=== PATIENT | female | born 1945 | race Caucasian/White ===

== ENCOUNTER 2017-03-23 18:10 | Emergency (ER) | payer MEDICARE, MEDICAID, SELFPAY ==
[2017-03-23 18:11] VITALS: BP 147/82; PULSE 82; RESP 22; O2SAT 96; BMI 35.3
--- NOTE | 2017-03-23 18:16 | CT_ITS ---
CT abdomen pelvis w con CLINICAL INDICATION: Generalized abdominal pain, history of hernia ITS.REASON: hernia ORDERING PHYSICIAN: Paresh Ortiz MD PATIENT AGE: 71 years COMPARISON: 12/27/2016 TECHNIQUE: Axial images obtained with sagittal and coronal reformats. PROCEDURE: Oral Contrast: None IV Contrast: 75 mL of [id number]. FINDINGS: No acute finding lower chest. Prior cholecystectomy without ductal dilatation. 16 mm cyst in the hepatic dome. Spleen, adrenal glands, pancreas and right kidney are unremarkable. Left kidney is absent surgically.. There is a ventral abdominal wall hernia which contains a loop of transverse colon without evidence of obstruction. No local bowel wall thickening. No intestinal obstruction or free air. No evidence of appendicitis or diverticulitis. No pelvic mass abnormal fluid collection or focal inflammatory change. Mild lumbar scoliosis convex right with no acute bony findings. IMPRESSION: 1. No acute finding. 2. Stable small ventral hernia containing a loop of transverse colon 3. Prior left nephrectomy and cholecystectomy
[2017-03-23 18:30] LABS: Basophils % 0.6 % (0.1-2.0); Eosinophils # 0.5 K/mm3 (0.0-0.4); Hematocrit 34.2 % (37.0-47.0); Hemoglobin 11.1 g/dL (12.2-16.2); Lymphocytes # 2.1 K/mm3 (0.7-4.5); Lymphocytes % 30.5 K/mm3 (10-50); Mean Corpuscular HGB Conc 32.4 g/dL (31.8-35.4); Mean Corpuscular Hemoglobin 27.7 pg (27.0-31.2); Mean Corpuscular Volume 85.3 fl (81-99); Mean Platelet Volume 8.7 fl (7.4-10.4); Monocytes # 0.3 K/mm3 (0.1-1.0); Monocytes % 4.4 % (1.7-9.3); Neutrophils % 57.5 % (37.0-80.0); Platelet Count 170 K/mm3 (142-424); Red Blood Count 4.01 M/mm3 (4.20-5.40); Red Cell Distribution Width 14.4 % (11.5-17.5)
[2017-03-23 18:39] LABS: Alanine Aminotransferase 25 U/L (12-78); Albumin Level 3.1 gm/dL (3.4-5.0); Albumin/Globulin Ratio 0.7 (1.1-1.8); Alkaline Phosphatase 108 U/L (46-116); Amylase 91 U/L (25-125); Anion Gap 11.7 mEq/L (5-15); Aspartate Amino Transferase 19 U/L (15-37); Bilirubin,Total 0.2 mg/dL (0.2-1.0); Blood Urea Nitrogen 24 mg/dL (7-18); Calcium 8.9 mg/dL (8.5-10.1); Carbon Dioxide 27 mmol/L (21.0-32.0); Chloride 107 mmol/L (98-107); Creatinine Clearance Estimated 59 mL/min (0-300); Creatinine,Serum 1.12 mg/dL (0.55-1.02); Estimated Glomerular Filt Rate 48 ml/min (>60); GFR (African American) 58 ML/MIN (>60); Globulin 4.4 gm/dl (1.3-3.2); Glucose 112 mg/dL (74-106); Lipase 221 u/L (73-393); Potassium 4.7 mmoL/L (3.5-5.1); Sodium 141 mmol/L (136-145); Total Protein,Serum 7.5 gm/dL (6.4-8.2)
--- NOTE | 2017-03-23 18:49 | HMH.EDABDPAI ---
ED Disposition Clinical Impression: Ventral hernia without obstruction or gangrene, UTI (urinary tract infection) Disposition: Home, Self-Care Condition on Discharge: Good Instructions: DI for Acute Abdomen Additional Instructions: Dr Jackson will see her in the morning for a surgery referral and follow up on urine culture. Prescriptions: Sulfamethoxazole/Trimethoprim [Bactrim DS tablet] 1 each PO BID #14 tab Referrals: Provider,Salud, [Primary Care Provider] - Catracho Wong MD [Staff Physician] - - Critical Care Critical Care Time: No Attestation: On 03/23/17, the high probability of a clinically significant, sudden or life threatening deterioration of the following system(s) required my full and direct attention, intervention and personal management. The time I documented below is in addition to time spent performing reported procedures but includes the following listed in this critical care notation. Medical Decision Making - Medical Records Medical records reviewed: Yes: I reviewed the patient's medical records. Vital Signs: 03/23/17 18:11 Temperature Source Oral Pulse Rate [Right Brachial] 82 Respiratory Rate 22 Blood Pressure [Right Arm] 147/82 Blood Pressure Mean [Right Arm] 103 Blood Pressure Source [Right Arm] Automatic Cuff Blood Pressure Position [Right Arm] Sitting 02 Sat by Pulse Oximetry 96 Oxygen Delivery Method Room Air - Lab Data Lab results reviewed: Yes: I reviewed the patient's lab results. Lab Results 03/23/17 17:51: Lactic Acid 2.4 H 03/23/17 18:15: WBC 7.0, RBC 4.01 L, Hgb 11.1 L, Hct 34.2 L, MCV 85.3, MCH 27.7, MCHC 32.4, RDW 14.4, Plt Count 170, MPV 8.7, Neut % (Auto) 57.5, Lymph % (Auto) 30.5, [place] % (Auto) 4.4, Eos % (Auto) 7.0, Baso % (Auto) 0.6, Neut # (Auto) 4.0, Lymph # (Auto) 2.1, [place] # (Auto) 0.3, Eos # (Auto) 0.5 H, Baso # (Auto) 0.0 03/23/17 18:15: Sodium 141, Potassium 4.7, Chloride 107, Carbon Dioxide 27, Anion Gap 11.7, BUN 24 H, Creatinine 1.12 H, Estimated Creat Clear 59, Estimated GFR 48 L, Est GFR ( Amer) 58 L, Glucose 112 H, Calcium 8.9, Total Bilirubin 0.2, AST 19, ALT 25, Alkaline Phosphatase 108, Total Protein 7.5, Albumin 3.1 L, Globulin 4.4 H, Albumin/Globulin Ratio 0.7 L, Amylase 91, Lipase 221 03/23/17 19:19: Urine Color Yellow, Urine Appearance Sl cloudy, Urine pH 7.0, Ur Specific [place] 1.010, Urine Protein Negative, Urine Glucose (UA) Negative, Urine Ketones Negative, Urine Blood Negative, Urine Nitrate Negative, Urine Bilirubin Negative, Urine Urobilinogen 0.2, Ur Leukocyte Esterase 2+ A, Urine RBC None, Urine WBC 20-50, Ur Squamous Epith Cells 5-10, Ur Transition Epith Cell 3-5, Urine Bacteria 2+ Result diagrams: 03/23/17 18:15 03/23/17 18:15 Orders (Tests/Meds): ED MEDICATIONS Discontinued Medications Generic Name Dose Route Start Last Admin Trade Name Fenrando PRN Reason Stop Dose Admin Iopamidol 75 ml 03/23/17 19:05 03/23/17 19:06 [id number]; 75ml Vial IV 03/23/17 19:06 75 ml ONCE ONE Administration Sodium Chloride 10 ml 03/23/17 19:05 03/23/17 19:06 Rad-Saline Flush 10ml Syringe IV 03/23/17 19:06 10 ml ONCE ONE Administration ORDERS Category Date Time Status CT abdomen pelvis w con Stat Cat Scan 03/23/17 18:16 Taken Urine Culture Stat Micro 03/23/17 19:19 Received - CT Data CT Scan: Abdomen, Pelvis Time Received: 20:[address] Reviewed: Yes: I have viewed the radiologist's interpretation Preliminary Findings: Abnormal Findings Narrative: CT scan report was positive for no acute findings Stable small ventral and nonincarcerated transverse colon Mild appendix Absent left kidney Bowel obstruction. - Thomas Inquiry Pt receiving controlled substance: No Thomas was queried for this patient: No Medical Decision Making Narrative: I discussed her history, clinical examination, labs and CT report with her primary care physician Dr. Wong who presented to the ED and
--- NOTE | 2017-03-23 18:52 | ED_ITS ---
ED Disposition Clinical Impression: Ventral hernia without obstruction or gangrene, UTI (urinary tract infection) Disposition: Home, Self-Care Condition on Discharge: Good Instructions: DI for Acute Abdomen Additional Instructions: Dr Jackson will see her in the morning for a surgery referral and follow up on urine culture. Prescriptions: Sulfamethoxazole/Trimethoprim [Bactrim DS tablet] 1 each PO BID #14 tab Referrals: Provider,Salud, [Primary Care Provider] - Catracho Wong MD [Staff Physician] - - Critical Care Critical Care Time: No Attestation: On 03/23/17, the high probability of a clinically significant, sudden or life threatening deterioration of the following system(s) required my full and direct attention, intervention and personal management. The time I documented below is in addition to time spent performing reported procedures but includes the following listed in this critical care notation. Medical Decision Making - Medical Records Medical records reviewed: Yes: I reviewed the patient's medical records. Vital Signs: 03/23/17 18:11 Temperature Source Oral Pulse Rate [Right Brachial] 82 Respiratory Rate 22 Blood Pressure [Right Arm] 147/82 Blood Pressure Mean [Right Arm] 103 Blood Pressure Source [Right Arm] Automatic Cuff Blood Pressure Position [Right Arm] Sitting 02 Sat by Pulse Oximetry 96 Oxygen Delivery Method Room Air - Lab Data Lab results reviewed: Yes: I reviewed the patient's lab results. Lab Results 03/23/17 17:51: Lactic Acid 2.4 H 03/23/17 18:15: WBC 7.0, RBC 4.01 L, Hgb 11.1 L, Hct 34.2 L, MCV 85.3, MCH 27.7 , MCHC 32.4, RDW 14.4, Plt Count 170, MPV 8.7, Neut % (Auto) 57.5, Lymph % (Auto ) 30.5, [place] % (Auto) 4.4, Eos % (Auto) 7.0, Baso % (Auto) 0.6, Neut # (Auto) 4.0, Lymph # (Auto) 2.1, [place] # (Auto) 0.3, Eos # (Auto) 0.5 H, Baso # (Auto) 0.0 03/23/17 18:15: Sodium 141, Potassium 4.7, Chloride 107, Carbon Dioxide 27, Anion Gap 11.7, BUN 24 H, Creatinine 1.12 H, Estimated Creat Clear 59, Estimated GFR 48 L, Est GFR ( Amer) 58 L, Glucose 112 H, Calcium 8.9, Total Bilirubin 0.2, AST 19, ALT 25, Alkaline Phosphatase 108, Total Protein 7.5 , Albumin 3.1 L, Globulin 4.4 H, Albumin/Globulin Ratio 0.7 L, Amylase 91, Lipase 221 03/23/17 19:19: Urine Color Yellow, Urine Appearance Sl cloudy, Urine pH 7.0, Ur Specific [place] 1.010, Urine Protein Negative, Urine Glucose (UA) Negative, Urine Ketones Negative, Urine Blood Negative, Urine Nitrate Negative, Urine Bilirubin Negative, Urine Urobilinogen 0.2, Ur Leukocyte Esterase 2+ A, Urine RBC None, Urine WBC 20-50, Ur Squamous Epith Cells 5-10, Ur Transition Epith Cell 3-5, Urine Bacteria 2+ Result diagrams: 03/23/17 18:15 03/23/17 18:15 Orders (Tests/Meds): ED MEDICATIONS Discontinued Medications Generic Name Dose Route Start Last Admin Trade Name Fernando PRN Reason Stop Dose Admin Iopamidol 75 ml 03/23/17 19:05 03/23/17 19:06 [id number]; 75ml Vial IV 03/23/17 19:06 75 ml ONCE ONE Administration Sodium Chloride 10 ml 03/23/17 19:05 03/23/17 19:06 Rad-Saline Flush 10ml Syringe IV 03/23/17 19:06 10 ml ONCE ONE Administration ORDERS Category Date Time Status CT abdomen pelvis w con Stat Cat Scan 03/23/17 18:16 Taken Urine Culture Stat Micro 03/23/17 19:19 Received - CT Data CT Scan: Abdomen, Pelvis
[2017-03-23 19:24] LABS: Microscopic, Urine URINE MICROSCOPIC (MICROSCOPIC)
[2017-03-23 19:25] LABS: Appearance,Urine SL CLOUDY (Clear); Bilirubin,Urine Negative (Negative); Blood, Urine Negative (Negative); Color,Urine YELLOW (Yellow); Glucose,Urine (UA) Negative (Negative); Ketones,Urine Negative (Negative); Leukocyte Esterase,Urine 2+ (Negative); Nitrate,Urine Negative (Negative); Protein,Urine Negative (Negative); Urobilinogen,Urine 0.2 EU/dl (0.2)
[2017-03-23 19:40] LABS: Bacteria,Urine 2+ /lpf; WBC,Urine 20-50 #/hpf (0-3)
[2017-03-23 19:52] LABS: Lactic Acid 2.4 mmol/L (0.4-2.0)
[2017-03-23 20:09] VITALS: BP 138/72; PULSE 74; RESP 20; O2SAT 95
--- NOTE | 2017-03-23 20:37 | PC.NURSE ---
report called to shital sanchez
== END 2017-03-23 20:44 | disposition home or self-care (01) ==
PROVIDERS: Emergency Provider Emergency Medicine
DX: K43.9 Ventral hernia without obstruction or gangrene (principal); N39.0 Urinary tract infection, site not specified; Z88.8 Allergy status to other drugs, medicaments and biological substances; Z91.040 Latex allergy status
CPT/HCPCS: 74177; 80053; 81001; 82150; 83605; 83690; 85025; 87086; 99282; Q9967

== ENCOUNTER 2017-04-09 17:07 | Emergency (ER) | payer MEDICARE, MEDICAID, SELFPAY ==
[2017-04-09 17:08] VITALS: BP 110/73; PULSE 81; RESP 18; TEMP 36.6; O2SAT 94; BMI 39.0
[2017-04-09 17:09] VITALS: BMI 39.0
--- NOTE | 2017-04-09 17:10 | XR_ITS ---
XR knee RT 3V Ordering Physician: Paresh Ortiz MD Patient Age: 71 years: Female HISTORY: ITS.REASON: fall fell at [facility]. Limited range of motion Right knee pain. TECHNIQUE: 3 views right knee AP, crosstable lateral and oblique COMPARISON :May 2016 right knee for comparison FINDINGS These nonweightbearing views reveal no fracture nor dislocation. No significant joint effusion. Upper normal fluid at suprapatellar bursa similar to previous study. Marked narrowing at the lateral compartment on this nonweightbearing film reflecting advanced osteoarthritic changes lateral compartment marginal ossified formation most evident off the lateral margin left of joint lateral tibial plateau. Early marginal osteophytes of patella. Flabella posteriorly believe again evident IMPRESSION: No fracture. Severe arthritic changes right knee at lateral compartment. No significant change since 06/02/2016
--- NOTE | 2017-04-09 17:10 | XR_ITS ---
XR lumbar spine 2-3V Ordering Physician: Paresh Ortiz MD Patient Age: 71 years: Female HISTORY: ITS.REASON: fall. Back pain TECHNIQUE: Five-view lumbar spine series COMPARISON :Previous CT abdomen and pelvis from 12/2016 Findings. Lumbar vertebral bodies are intact with no compression fracture or acute findings... Disc space narrowing at L3/4 with slight anterolisthesis less than 3 mm of L3 on L4. Facet hypertrophy this level as well as all levels lower L-spine.. Prominent fairly Exuberant facet hypertrophy is seen particularly at L3/4, L4/5 & L5/S1 Mild disc space narrowing L2/3 to the left. Mild dextroscoliosis most evident at L2/3 similar to previous study. Postsurgical changes from left nephrectomy and cholecystectomy noted. Clips in these regions. AP view of hips unremarkable. Mild diffuse mineralization. Marginal osteophytes throughout the L-spine most evident anteriorly into the left Generous stool is seen throughout the right colon. Minimal stool and gas left colon. Numerous phleboliths at the pelvic basin. ------ IMPRESSION: 1.... Degenerative disc changes most evident at L3/4 with mild degenerative listhesis . Slight disc space narrowing L2/3 to the left. ... 2. Prominent facet hypertrophy/arthropathy throughout the L-spine most evident L3/4, L4/5 and L5/S1.
--- NOTE | 2017-04-09 17:10 | XR_ITS ---
XR hip RT 2-3V w/pelvis Ordering Physician: Paresh Ortiz MD Patient Age: 71 years: Female HISTORY: ITS.REASON: fallright TECHNIQUE: Right hip AP and frog-leg views along with AP pelvis. COMPARISON :Hip FINDINGS No fracture. Femoral head normal contour and density. Femoral neck intact. Trochanteric region intact. Hip joint space fairly well maintained bilaterally only minor hypertrophic ridging acetabulum. There is some mild prominence or irregularity at the posterior acetabula most likely hypertrophic in nature but if pain should persist and may require follow-up for further investigation. Osseous pelvis appears intact. . Superior and inferior ramus and pubis intact. Sacrum intact. Numerous phleboliths pelvic basin. Mild degenerative changes lower spine. COMPARISON is made to CT abdomen pelvis 12/27/2016. No significant new findings IMPRESSION: Right hip intact with no fracture evident. Osseous pelvis intact.
--- NOTE | 2017-04-09 17:10 | CT_ITS ---
CT HEAD WITHOUT CONTRAST CT BONE WINDOWS [facility]ISTORY:[facility] head. Head trauma, Headache. PROCEDURE: Routine axial images through the head performed with brain and bone windows reviewed. CT BRAIN WITHOUT CONTRAST-FINDINGS: Previous CT head from 11/28/2016 & 04/25/2016 as comparison. No acute intracranial findings. No interval change. Diffuse cerebral atrophy which is advanced for a 71-year-old Suspect subtle chronic small vessel deep white matter changes likely present as rib hemispheres. . No hemorrhage or mass or subdural collection. No territorial infarct. The ventricles and basal cisterns appear satisfactory.. The posterior fossa appear satisfactory and unremarkable. CT BONE WINDOWS: Skull intact.. .. Mild mucosal thickening posterior left sphenoid sinus with borderline mucosal thickening throughout ethmoid air cells. mastoid air cells and middle ear in IACs are unremarkable. IMPRESSION: No acute intracranial findings. No significant change since 11/28/2016. Diffuse cerebral atrophy relatively advanced for age.
--- NOTE | 2017-04-09 17:34 | CT_ITS ---
CT thoracic spine wo con Ordering Physician: Paresh Ortiz MD Patient Age: 71 years: Female HISTORY: ITS.REASON: fall . Midline thoracic pain. TECHNIQUE: Helical CT scanning performed through the thoracic spine with sagittal and coronal reconstructions on CT workstation.. Scanning begins at the lower cervical spine and continues through the mid lumbar COMPARISON : FINDINGS No acute fracture nor subluxation thoracic spine. The vertebral bodies are intact. Anterior marginal osteophytes most evident anteriorly at lower T-spine and to the right from T7 through T10 . Disc spaces are fairly well-maintained with only borderline narrowing at T5/6. No remarkable posterior spurring. Possible subtle central disc bulge prominence question very minor central protrusion at T8-9. No prominent nor significant appearing obvious disc protrusion or herniation by by CT. However if symptoms persist MR is more sensitive to disc abnormalities. . There are hypertrophic, degenerative facet changes lower T-spine and and become most pronounced at the into the mid lumbar. Images include the upper lumbar spine and there is slight disc space narrowing posteriorly at L2/L3 and L3/4 disc. Facet arthropathy bilaterally at L3/4 and L2/3. The disc space narrowing and facet degeneration/arthropathy yields Mild 2.5 mm grade 1 degenerative listhesis of L3 on L4. C6/7 mild disc space narrowing. Mild spondylosis and anterior marginal osteophytes at this level At the dome the liver there is a 16 mm low-density area which is fluid density thus. Cholecystectomy noted. Postsurgical changes with left kidney removed. Right kidney unremarkable. Most likely a hepatic cyst. IMPRESSION: ------- 1. No acute fracture nor findings at the T-spine.. Vertebral bodies intact no compression fracture.. Disc spaces are fairly well-maintained throughout T-spine as well Mild degenerative changes T-spine. 2.. Degenerative disc changes spine, actually most evident at lower C-spine and into the mid lumbar spine. Facet arthropathy begins at the lower T-spine and most pronounced to the mid lumbar spine. Disc space narrowing and mild degenerative listhesis of L3 on 4 noted
--- NOTE | 2017-04-09 17:35 | HMH.EDFALL ---
ED Disposition Clinical Impression: Fall, Brain atrophy, DJD (degenerative joint disease) of thoracic spine, OA (osteoarthritis) of knee Disposition: Home, Self-Care Condition on Discharge: Good Referrals: Provider,Referral, [Primary Care Provider] - - Critical Care Critical Care Time: No Attestation: On 04/09/17, the high probability of a clinically significant, sudden or life threatening deterioration of the following system(s) required my full and direct attention, intervention and personal management. The time I documented below is in addition to time spent performing reported procedures but includes the following listed in this critical care notation. Medical Decision Making - Medical Records Medical records reviewed: Yes: I reviewed the patient's medical records. Vital Signs: 04/09/17 17:08 Temperature 97.8 F Temperature Source Oral Pulse Rate [Left Brachial] 81 Respiratory Rate 18 Blood Pressure [Left Arm] 110/73 Blood Pressure Mean [Left Arm] 85 Blood Pressure Source [Left Arm] Automatic Cuff Blood Pressure Position [Left Arm] Sitting 02 Sat by Pulse Oximetry 94 L Orders (Tests/Meds): ORDERS Category Date Time Status XR hip RT 2-3V w/pelvis Stat Exams 04/09/17 17:10 Taken XR knee RT 3V Stat Exams 04/09/17 17:10 Taken XR lumbar spine 2-3V Stat Exams 04/09/17 17:10 Taken - Radiology Data #1 Image(s): L-Spine, Pelvis, Hip, Knee Image Reviewed: Yes I reviewed the patient's radiology image, Yes I have reviewed radiologist's interpretation Preliminary Findings: Abnormal (Severe DJD no acute fractures.) - CT Data CT Scan: Head, T-Spine Time Received: 19:[address] Reviewed: Yes: I have viewed the radiologist's interpretation Preliminary Findings: Abnormal Findings Narrative: DJD and brain atrophy no acute. - Thomas Inquiry Pt receiving controlled substance: No Thomas was queried for this patient: No Fall HPI - General Stated Complaint: fall, R knee pain, lower back pain - History of Present Illness HPI Narrative: 8 years old white female patient of [facility] who was attempting to move from bed to wheelchair when she fell. She complained of right knee, right hip pain and low back pain. Ambulance was called and the patient was brought for evaluation. He denies head and neck injury. Onset (ago): hour(s) (Prior to arrival) Fall from: wheelchair Fall witnessed: yes, by living facility staff Place fall occurred: longterm/SNF Loss of consciousness: none Prolonged down time: no Symptoms prior to fall: none Location of injury - extremities: Left: knee Severity: moderate Quality: dull Associated symptoms (after fall): denies - Related Data Previous Rx's Medication Instructions Recorded Sulfamethoxazole/Trimethoprim 1 each PO BID #14 tab 03/23/17 [Bactrim DS tablet] Allergies Allergy/AdvReac Type Severity Reaction Status Date / Time buspirone [BUSPIRONE] Allergy Unknown Unverified 02/07/17 14:11 esomeprazole [From NEXIUM] Allergy Unknown Unverified 02/07/17 14:11 latex [LATEX] Allergy Unknown Unverified 02/07/17 14:11 morphine [MORPHINE] Allergy Unknown Unverified 02/07/17 14:11 pneumococcal vaccine Allergy Unknown Unverified 02/07/17 14:11 [facility] History I have reviewed the patient's past medical history: Yes - *Social History Alcohol Intake: never ROS Obtained: Yes All systems reviewed & no additional complaints Physical Exam - General General appearance: alert, in no apparent distress - Head Head exam: atraumatic, normocephalic, normal inspection - Eye Eye exam: Present: normal appearance, PERRL, EOMI - ENT ENT exam: Present: normal exam, normal oropharynx, mucous membranes moist, TM's normal bilaterally, normal external ear exam - Neck Neck exam: Present: normal inspection, full ROM, trachea midline. Absent: meningismus, lymphadenopathy - Chest Chest inspection: Present: normal inspection, symmetric chest wall rise.
--- NOTE | 2017-04-09 17:38 | ED_ITS ---
ED Disposition Clinical Impression: Fall, Brain atrophy, DJD (degenerative joint disease) of thoracic spine, OA ( osteoarthritis) of knee Disposition: Home, Self-Care Condition on Discharge: Good Referrals: Provider,Referral, [Primary Care Provider] - - Critical Care Critical Care Time: No Attestation: On 04/09/17, the high probability of a clinically significant, sudden or life threatening deterioration of the following system(s) required my full and direct attention, intervention and personal management. The time I documented below is in addition to time spent performing reported procedures but includes the following listed in this critical care notation. Medical Decision Making - Medical Records Medical records reviewed: Yes: I reviewed the patient's medical records. Vital Signs: 04/09/17 17:08 Temperature 97.8 F Temperature Source Oral Pulse Rate [Left Brachial] 81 Respiratory Rate 18 Blood Pressure [Left Arm] 110/73 Blood Pressure Mean [Left Arm] 85 Blood Pressure Source [Left Arm] Automatic Cuff Blood Pressure Position [Left Arm] Sitting 02 Sat by Pulse Oximetry 94 L Orders (Tests/Meds): ORDERS Category Date Time Status XR hip RT 2-3V w/pelvis Stat Exams 04/09/17 17:10 Taken XR knee RT 3V Stat Exams 04/09/17 17:10 Taken XR lumbar spine 2-3V Stat Exams 04/09/17 17:10 Taken - Radiology Data #1 Image(s): L-Spine, Pelvis, Hip, Knee Image Reviewed: Yes I reviewed the patient's radiology image, Yes I have reviewed radiologist's interpretation Preliminary Findings: Abnormal (Severe DJD no acute fractures.) - CT Data CT Scan: Head, T-Spine Time Received: 19:[address] Reviewed: Yes: I have viewed the radiologist's interpretation Preliminary Findings: Abnormal Findings Narrative: DJD and brain atrophy no acute. - Thomas Inquiry Pt receiving controlled substance: No Thomas was queried for this patient: No Fall HPI - General Stated Complaint: fall, R knee pain, lower back pain - History of Present Illness HPI Narrative: 8 years old white female patient of [facility] who was attempting to move from bed to wheelchair when she fell. She complained of right knee, right hip pain and low back pain. Ambulance was called and the patient was brought for evaluation. He denies head and neck injury. Onset (ago): hour(s) (Prior to arrival) Fall from: wheelchair Fall witnessed: yes, by living facility staff Place fall occurred: long-term/SNF Loss of consciousness: none Prolonged down time: no Symptoms prior to fall: none Location of injury - extremities: Left: knee Severity: moderate Quality: dull Associated symptoms (after fall): denies - Related Data Previous Rx's Medication Instructions Recorded Sulfamethoxazole/Trimethoprim 1 each PO BID #14 tab 03/23/17 [Bactrim DS tablet] Allergies Allergy/AdvReac Type Severity Reaction Status Date / Time buspirone [BUSPIRONE] Allergy Unknown Unverified 02/07/17 14:11 esomeprazole [From NEXIUM] Allergy Unknown Unverified 02/07/17 14:11 latex [LATEX] Allergy Unknown Unverified 02/07/17 14:11 morphine [MORPHINE] Allergy Unknown Unverified 02/07/17 14:11 pneumococcal vaccine Allergy Unknown Unverified 02/07/17 14:11 H History I have reviewed the patient's past med
--- NOTE | 2017-04-09 19:36 | PC.NURSE ---
[facility] notified that pt is ready for discharge.
[2017-04-09 20:01] VITALS: BP 131/55; PULSE 74; RESP 18; TEMP 36.6; O2SAT 97
== END 2017-04-09 20:03 | disposition home or self-care (01) ==
PROVIDERS: Emergency Provider Emergency Medicine
DX: M25.561 Pain in right knee (principal); M17.11 Unilateral primary osteoarthritis, right knee; W06.XXXA Fall from bed, initial encounter; Y92.193 Bedroom in other specified residential institution as the place of occurrence of the external cause; M47.894 Other spondylosis, thoracic region; Z88.6 Allergy status to analgesic agent; Z88.8 Allergy status to other drugs, medicaments and biological substances; Z91.040 Latex allergy status
CPT/HCPCS: 70450; 72100; 72110; 72128; 73502; 73562; 99281

== ENCOUNTER 2017-05-20 00:26 | Inpatient (IN) | payer MEDICARE, MEDICAID, SELFPAY ==
[2017-05-20] VITALS (8 sets, daily range): BP systolic 91–128; BP diastolic 47–66; PULSE 61–86; RESP 14–20; TEMP 36.6–40.2; O2SAT 88–94; BMI 28.8; BMI 29.2
--- NOTE | 2017-05-20 00:42 | XR_ITS ---
XR chest portable HISTORY: ITS.REASON: cough ORDERING PHYSICIAN: Catracho Wong MD PATIENT AGE: 71 years COMPARISON: 07/12/2015 FINDINGS: Unremarkable cardiovascular structures. There are low lung volumes. Increased markings are present in the right lung base medially consistent with atelectasis and/or infiltrate. No acute bony anomalies. IMPRESSION: Airspace disease in the right lung base medially consistent with atelectasis and/or infiltrate
[2017-05-20 00:52] LABS: Basophils % 0.2 % (0.1-2.0); Eosinophils # 0.1 K/mm3 (0.0-0.4); Eosinophils % 0.6 % (0.1-12.0); Hematocrit 35.2 % (37.0-47.0); Hemoglobin 11.2 g/dL (12.2-16.2); Lymphocytes # 0.6 K/mm3 (0.7-4.5); Lymphocytes % 6.1 K/mm3 (10-50); Mean Corpuscular HGB Conc 31.7 g/dL (31.8-35.4); Mean Corpuscular Volume 88.4 fl (81-99); Mean Platelet Volume 8.6 fl (7.4-10.4); Monocytes # 0.5 K/mm3 (0.1-1.0); Monocytes % 4.8 % (1.7-9.3); Neutrophils # 8.6 K/mm3 (1.8-7.8); Neutrophils % 88.3 % (37.0-80.0); Platelet Count 175 K/mm3 (142-424); Red Blood Count 3.99 M/mm3 (4.20-5.40); Red Cell Distribution Width 14.3 % (11.5-17.5); White Blood Count 9.7 K/mm3 (4.8-10.8)
[2017-05-20 00:54] LABS: Anion Gap 12.4 mEq/L (5-15); Blood Urea Nitrogen 32 mg/dL (7-18); Carbon Dioxide 26 mmol/L (21.0-32.0); Chloride 102 mmol/L (98-107); Creatinine Clearance Estimated 45 mL/min (0-300); Creatinine,Serum 1.58 mg/dL (0.55-1.02); Estimated Glomerular Filt Rate 32 ml/min (>60); GFR (African American) 39 ML/MIN (>60); Glucose 143 mg/dL (74-106); MANUAL DIFFERENTIAL MANUAL DIFFERENTIAL (MANUAL DIFF); Potassium 4.4 mmoL/L (3.5-5.1); Sodium 136 mmol/L (136-145)
[2017-05-20 01:00] LABS: Microscopic,Cath URINE MICROSCOPIC (MICROSCOPIC)
[2017-05-20 01:01] LABS: Appearance,Urine/Cath CLEAR (Clear); Bilirubin,Cath Negative (Negative); Blood, Urine/Cath Negative (Negative); Color,Urine/Cath YELLOW (Yellow); Glucose,Urine/Cath (UA) Negative (Negative); Ketones,Urine/Cath Negative (Negative); Leukocyte Esterase,Cath Negative (Negative); Nitrate,Cath Negative (Negative); PH,Urine/Cath 5.5 (5.0-8.5); Protein,Urine/Cath Negative (Negative); Specific Gravity, Urine/Cath 1.025 (1.005-1.030); Urobilinogen,Cath 0.2 EU/dl (0.2)
[2017-05-20 01:05] LABS: Lactic Acid 2.1 mmol/L (0.4-2.0)
[2017-05-20 01:09] LABS: Bacteria,Urine/Cath 1+ /lpf; Mucus,Urine/Cath Trace /lpf
--- NOTE | 2017-05-20 01:11 | PC.NURSE ---
pt arrived in brief with strong urine odor, fungal rash being treated in abdominal folds
[2017-05-20 01:14] LABS: Anisocytosis 1+; Eosinophils % 2 % (0-3); Hypochromasia 1+; Lymphocytes % 8 % (10-50); Neutrophils % 90 % (42-76); Platelet Estimate Normal; Poikilocytosis 1+; Total Cells Counted 100
--- NOTE | 2017-05-20 01:20 | HMH.EDFEV ---
ED Disposition Clinical Impression: Renal insufficiency Fever Qualifiers: Fever type: unspecified Qualified Code(s): R50.9 - Fever, unspecified Disposition: Admitted as Observation Condition on Discharge: Good - Critical Care Critical Care Time: No Attestation: On 05/20/17, the high probability of a clinically significant, sudden or life threatening deterioration of the following system(s) required my full and direct attention, intervention and personal management. The time I documented below is in addition to time spent performing reported procedures but includes the following listed in this critical care notation. Medical Decision Making - Medical Records Medical records reviewed: Yes: I reviewed the patient's medical records. - Thomas Inquiry Pt receiving controlled substance: No Vital Signs: 05/20/17 00:27 Temperature 104.3 F H Temperature Source Rectal Pulse Rate [Right Radial] 86 Respiratory Rate 14 Blood Pressure [Right Arm] 103/61 Blood Pressure Mean [Right Arm] 75 Blood Pressure Source [Right Arm] Automatic Cuff Blood Pressure Position [Right Arm] Supine 02 Sat by Pulse Oximetry 88 L Oxygen Delivery Method Room Air - Lab Data Lab results reviewed: Yes: I reviewed the patient's lab results. Lab Results 05/20/17 00:30: WBC 9.7, RBC 3.99 L, Hgb 11.2 L, Hct 35.2 L, MCV 88.4, MCH 28.0, MCHC 31.7 L, RDW 14.3, Plt Count 175, MPV 8.6, Neut % (Auto) 88.3 H, Lymph % (Auto) 6.1 L, [place] % (Auto) 4.8, Eos % (Auto) 0.6, Baso % (Auto) 0.2, Neut # (Auto) 8.6 H, Lymph # (Auto) 0.6 L, [place] # (Auto) 0.5, Eos # (Auto) 0.1, Baso # (Auto) 0.0, Total Counted 100, Neutrophils % (Manual) 90 H, Lymphocytes % (Manual) 8 L, Eosinophils % (Manual) 2, Platelet Estimate Normal, RBC Morphology Not Reportable, Hypochromasia 1+, Poikilocytosis 1+, Anisocytosis 1+ 05/20/17 00:30: Sodium 136, Potassium 4.4, Chloride 102, Carbon Dioxide 26, Anion Gap 12.4, BUN 32 H, Creatinine 1.58 H, Estimated Creat Clear 45, Estimated GFR 32 L, Est GFR ( Amer) 39 L, Glucose 143 H 05/20/17 00:30: Lactic Acid 2.1 H 05/20/17 00:55: Urine Color Yellow, Urine Appearance Clear, Urine pH 5.5, Ur Specific [place] 1.025, Urine Protein Negative, Urine Glucose (UA) Negative, Urine Ketones Negative, Urine Blood Negative, Urine Nitrate Negative, Urine Bilirubin Negative, Urine Urobilinogen 0.2, Ur Leukocyte Esterase Negative, Urine WBC 3-5, Urine Bacteria 1+, Hyaline Casts 3-5 Result diagrams: 05/20/17 00:30 05/20/17 00:30 Orders (Tests/Meds): ED MEDICATIONS Discontinued Medications Generic Name Dose Route Start Last Admin Trade Name Damienq PRN Reason Stop Dose Admin Acetaminophen 1,000 mg 05/20/17 00:42 05/20/17 01:04 Tylenol 500mg Tablet PO 05/20/17 00:43 1,000 mg ONCE ONE Administration Sodium Chloride 1,000 mls @ 999 mls/hr 05/20/17 00:45 05/20/17 01:05 Sod Chlor 0.9% 1000ml Bag IV 05/20/17 01:45 999 mls/hr .Q1H1M MINE Administration Ibuprofen 600 mg 05/20/17 00:42 05/20/17 01:04 Motrin 600mg Tablet PO 05/20/17 00:43 600 mg ONCE ONE Administration ORDERS Category Date Time Status XR chest portable Stat Exams 05/20/17 00:42 Taken Flu A&B Antigens, Rapid [Rapid Influenza A&B Antigens] Lab 05/20/17 01:34 Received Stat Blood Culture Stat Micro 05/20/17 00:30 Received - Radiology Data #1 Image(s): Chest Image Reviewed: Yes I reviewed the patient's radiology image Preliminary Findings: Abnormal Fever HPI - General Chief Complaint: Fever Stated Complaint: fever Time Seen by Provider: 05/20/17 01:20 Mode of Arrival: EMS Source of Information: Patient, EMS, Medical Record Limitations: No Limitations Description of Symptoms (Recalled from ER Triage Doc. by RN): cough fever - History of Present Illness HPI Narrative: pt with netsuite consultant cough and fever sent from [facility] GARCIA complaint: fever Onset (ago): day(s) Treatments prior to arrival fever: none - Related Basilio
--- NOTE | 2017-05-20 01:29 | ED_ITS ---
ED Disposition Clinical Impression: Renal insufficiency Fever Qualifiers: Fever type: unspecified Qualified Code(s): R50.9 - Fever, unspecified Disposition: Admitted as Observation Condition on Discharge: Good - Critical Care Critical Care Time: No Attestation: On 05/20/17, the high probability of a clinically significant, sudden or life threatening deterioration of the following system(s) required my full and direct attention, intervention and personal management. The time I documented below is in addition to time spent performing reported procedures but includes the following listed in this critical care notation. Medical Decision Making - Medical Records Medical records reviewed: Yes: I reviewed the patient's medical records. - Thomas Inquiry Pt receiving controlled substance: No Vital Signs: 05/20/17 00:27 Temperature 104.3 F H Temperature Source Rectal Pulse Rate [Right Radial] 86 Respiratory Rate 14 Blood Pressure [Right Arm] 103/61 Blood Pressure Mean [Right Arm] 75 Blood Pressure Source [Right Arm] Automatic Cuff Blood Pressure Position [Right Arm] Supine 02 Sat by Pulse Oximetry 88 L Oxygen Delivery Method Room Air - Lab Data Lab results reviewed: Yes: I reviewed the patient's lab results. Lab Results 05/20/17 00:30: WBC 9.7, RBC 3.99 L, Hgb 11.2 L, Hct 35.2 L, MCV 88.4, MCH 28.0 , MCHC 31.7 L, RDW 14.3, Plt Count 175, MPV 8.6, Neut % (Auto) 88.3 H, Lymph % ( Auto) 6.1 L, [place] % (Auto) 4.8, Eos % (Auto) 0.6, Baso % (Auto) 0.2, Neut # ( Auto) 8.6 H, Lymph # (Auto) 0.6 L, [place] # (Auto) 0.5, Eos # (Auto) 0.1, Baso # ( Auto) 0.0, Total Counted 100, Neutrophils % (Manual) 90 H, Lymphocytes % (Manual ) 8 L, Eosinophils % (Manual) 2, Platelet Estimate Normal, RBC Morphology Not Reportable, Hypochromasia 1+, Poikilocytosis 1+, Anisocytosis 1+ 05/20/17 00:30: Sodium 136, Potassium 4.4, Chloride 102, Carbon Dioxide 26, Anion Gap 12.4, BUN 32 H, Creatinine 1.58 H, Estimated Creat Clear 45, Estimated GFR 32 L, Est GFR ( Amer) 39 L, Glucose 143 H 05/20/17 00:30: Lactic Acid 2.1 H 05/20/17 00:55: Urine Color Yellow, Urine Appearance Clear, Urine pH 5.5, Ur Specific [place] 1.025, Urine Protein Negative, Urine Glucose (UA) Negative, Urine Ketones Negative, Urine Blood Negative, Urine Nitrate Negative, Urine Bilirubin Negative, Urine Urobilinogen 0.2, Ur Leukocyte Esterase Negative, Urine WBC 3-5, Urine Bacteria 1+, Hyaline Casts 3-5 Result diagrams: 05/20/17 00:30 05/20/17 00:30 Orders (Tests/Meds): ED MEDICATIONS Discontinued Medications Generic Name Dose Route Start Last Admin Trade Name Damienq PRN Reason Stop Dose Admin Acetaminophen 1,000 mg 05/20/17 00:42 05/20/17 01:04 Tylenol 500mg Tablet PO 05/20/17 00:43 1,000 mg ONCE ONE Administration Sodium Chloride 1,000 mls @ 999 mls/hr 05/20/17 00:45 05/20/17 01:05 Sod Chlor 0.9% 1000ml Bag IV 05/20/17 01:45 999 mls/hr .Q1H1M MINE Administration Ibuprofen 600 mg 05/20/17 00:42 05/20/17 01:04 Motrin 600mg Tablet PO 05/20/17 00:43 600 mg ONCE ONE Administration ORDERS Category Date Time Status XR chest portable Stat Exams 05/20/17 00:42 Taken Flu A&B Antigens, Rapid [Rapid Influenza A&B Antigens] Lab 05/20/17 01:34 Received Stat Blood Culture Stat Micro 05/20/17 00:30 Received
[2017-05-20 02:18] LABS: Adenovirus,PCR Not Detected (NotDetected); Bordetella Pertussis Not Detected (NotDetected); Chlamydophila Pneumoniae, PCR Not Detected (NotDetected); Coronavirus 229E Not Detected (NotDetected); Coronavirus NL63 Not Detected (NotDetected); Coronavirus OC43 Not Detected (NotDetected); Coronovirus HKU1,PCR Not Detected (NotDetected); Human Metapneumovirus Not Detected (NotDetected); Influenza A, PCR Not Detected (NotDetected); Influenza AH1, 2009 Not Detected (NotDetected); Influenza AH1, PCR Not Detected (NotDetected); Influenza AH3,PCR Not Detected (NotDetected); Influenza B, PCR Not Detected (NotDetected); Mycoplasma Pneumoniae, PCR Not Detected (NotDected); Parainfluenza 1, PCR Not Detected (NotDetected); Parainfluenza 2, PCR Not Detected (NotDetected); Parainfluenza 3, PCR Not Detected (NotDetected); Parainfluenza 4, PCR Not Detected (NotDetected); Respiratory Syncytial Virus Not Detected (NotDetected); Rhinovirus/Enterovirus Not Detected (NotDetected)
[2017-05-20 04:49] LABS: Reflex Lactic Add Lactic Reflex
[2017-05-20 05:45] LABS: Basophils % 0.2 % (0.1-2.0); Eosinophils % 0.3 % (0.1-12.0); Hematocrit 30.6 % (37.0-47.0); Lymphocytes # 0.9 K/mm3 (0.7-4.5); Lymphocytes % 7.8 K/mm3 (10-50); Mean Corpuscular HGB Conc 31.2 g/dL (31.8-35.4); Mean Corpuscular Hemoglobin 28.1 pg (27.0-31.2); Mean Corpuscular Volume 90.1 fl (81-99); Mean Platelet Volume 8.8 fl (7.4-10.4); Monocytes # 0.6 K/mm3 (0.1-1.0); Monocytes % 4.7 % (1.7-9.3); Neutrophils # 10.2 K/mm3 (1.8-7.8); Platelet Count 166 K/mm3 (142-424); Red Cell Distribution Width 14.3 % (11.5-17.5); White Blood Count 11.7 K/mm3 (4.8-10.8)
[2017-05-20 05:51] LABS: Blood Urea Nitrogen 28 mg/dL (7-18); Carbon Dioxide 25 mmol/L (21.0-32.0); Chloride 107 mmol/L (98-107); Creatinine Clearance Estimated 47 mL/min (0-300); Estimated Glomerular Filt Rate 37 ml/min (>60); GFR (African American) 45 ML/MIN (>60); Glucose 129 mg/dL (74-106); Sodium 134 mmol/L (136-145)
[2017-05-20 05:57] LABS: Lactic Acid Follow Up (RFLX 1) 0.7 (0.4-2.0)
[2017-05-20 06:03] LABS: Hemoglobin 9.7 g/dL (12.2-16.2)
--- NOTE | 2017-05-20 07:23 | PC.NURSE ---
REPORT GIVEN TO Amy VALDIVIA W/C
--- NOTE | 2017-05-20 07:45 | HMH.HP ---
*Admission Date: 05/20/17 *Chief complaint: fever *History of present illness: [facility] fever and confusion and weakness last pm and was sent to ed for eval- she was found to have fever with abn cxr and lt shift on cbc and was admitted with ivf and abx for cap H History I have reviewed the patient's past medical history: Yes Medical History: Reports:: Cancer (left kidney) Denies:: Diabetes Mellitus Type 1, Diabetes Mellitus Type 2, MRSA Amputation: No Fractures: No - *Social History Smoking Status: Never smoker Alcohol Intake: never - Psychiatric History Expresses thoughts of harming self/others: None Suicide Plan Description: No Plan *Family Hx:: Unable to obtain Review of Systems - Review of Systems Review of systems:: pertinent systems reviewed and negative unless documented below - Constitutional Reports fever(s), Reports lack of energy, Reports weakness - Eyes Denies change in vision - ENT Denies ear pain, Denies sore throat, Denies dizziness - *Cardiovascular Denies chest pain - *Respiratory Reports cough, Reports shortness of breath, Denies coughing up blood - *Gastrointestinal Denies abdominal pain, Denies nausea, Denies vomiting - *Genitourinary Denies blood in urine - *Musculoskeletal Reports joint pain, Denies joint swelling - Integumentary/Breasts Denies rash - *Neurologic Reports confusion, Reports weakness, Denies seizure-like activity - Psychiatric Denies thoughts of hurting/killing yourself Meds Home Medications Medication Instructions Recorded Confirmed Type Acetaminophen [Tylenol] 325 mg PO Q6HP PRN 05/20/17 05/20/17 History Atorvastatin Calcium [Atorvastatin 40 mg PO HS 05/20/17 05/20/17 History 40mg Tab] Bismuth Subsalicylate 30 ml PO Q4HP PRN 05/20/17 05/20/17 History [Pepto-Bismol] Cholecalciferol (Vitamin D3) 2 cap PO DAILY 05/20/17 05/20/17 History [Vitamin D3 1,000 Unit Tab] Divalproex Sodium [Divalproex 500 mg PO BID 05/20/17 05/20/17 History Sodium ER] Fenofibrate [Tricor 54mg tablet] 54 mg PO DAILY 05/20/17 05/20/17 History Gabapentin [Gabapentin 400mg Cap] 400 mg PO QID 05/20/17 05/20/17 History Hydrocortisone [Hydrocortisone 1% 0 gm TP DAILY 05/20/17 05/20/17 History Cream 30gm Tube] Lisinopril [Lisinopril 10mg Tab] 10 mg PO DAILY 05/20/17 05/20/17 History Loperamide HCl [Loperamide] 2 mg PO Q3HP PRN 05/20/17 05/20/17 History Mag Hydrox/Aluminum Hyd/Simeth 30 ml PO Q6HP PRN 05/20/17 05/20/17 History [Maalox Advanced Suspension] Multivitamin [Multivitamins] 1 each PO DAILY 05/20/17 05/20/17 History Nystatin [Nystatin Topical Powder 0 gm TP TID 05/20/17 05/20/17 History 30GM] OLANZapine [Olanzapine] 20 mg PO HS 05/20/17 05/20/17 History Ondansetron HCl [Ondansetron 4mg 4 mg PO DAILYP PRN 05/20/17 05/20/17 History Tab] Polyethylene Glycol 3350 [Miralax 17 gm PO DAILYP PRN 05/20/17 05/20/17 History Powder] Sertraline HCl [Zoloft] 100 mg PO DAILY 05/20/17 05/20/17 History diphenhydrAMINE HCl 25 mg PO Q6HP PRN 05/20/17 05/20/17 History [Diphenhydramine HCl] guaiFENesin [Robitussin 200mg/10mL 10 ml PO Q4HP PRN 05/20/17 05/20/17 History Syrup Udc] hydrOXYzine HCl [Hydroxyzine HCl] 25 mg PO TID 05/20/17 05/20/17 History Allergies Allergy/AdvReac Type Severity Reaction Status Date / Time buspirone [BUSPIRONE] Allergy Unknown Verified 04/14/17 14:36 esomeprazole [From NEXIUM] Allergy Unknown Verified 04/14/17 14:36 latex [LATEX] Allergy Unknown Verified 04/14/17 14:36 morphine [MORPHINE] Allergy Unknown Verified 04/14/17 14:36 pneumococcal vaccine Allergy Unknown Verified 04/14/17 14:36 Exam Vital signs and Labs for Last 24 Hours: Temp Pulse Resp BP Pulse Ox 98.1 F 76 20 93/48 91 L 05/20/17 03:21 05/20/17 03:21 05/20/17 03:21 05/20/17 03:21 05/20/17 03:21 Laboratory Results - last 24 hr 05/20/17 05:00: WBC 11.7 H, RBC 3.40 L, Hgb 9.7 L D, Hct 30.6
--- NOTE | 2017-05-20 07:50 | P.HP_ITS ---
*Admission Date: 05/20/17 *Chief complaint: fever *History of present illness: this wf who lives [facility] fever and confusion and weakness last pm and was sent to ed for eval- she was found to have fever with abn cxr and lt shift on cbc and was admitted with ivf and abx for cap H History I have reviewed the patient's past medical history: Yes Medical History: Reports:: Cancer (left kidney) Denies:: Diabetes Mellitus Type 1, Diabetes Mellitus Type 2, MRSA Amputation: No Fractures: No - *Social History Smoking Status: Never smoker Alcohol Intake: never - Psychiatric History Expresses thoughts of harming self/others: None Suicide Plan Description: No Plan *Family Hx:: Unable to obtain Review of Systems - Review of Systems Review of systems:: pertinent systems reviewed and negative unless documented below - Constitutional Reports fever(s), Reports lack of energy, Reports weakness - Eyes Denies change in vision - ENT Denies ear pain, Denies sore throat, Denies dizziness - *Cardiovascular Denies chest pain - *Respiratory Reports cough, Reports shortness of breath, Denies coughing up blood - *Gastrointestinal Denies abdominal pain, Denies nausea, Denies vomiting - *Genitourinary Denies blood in urine - *Musculoskeletal Reports joint pain, Denies joint swelling - Integumentary/Breasts Denies rash - *Neurologic Reports confusion, Reports weakness, Denies seizure-like activity - Psychiatric Denies thoughts of hurting/killing yourself Meds Home Medications Medication Instructions Recorded Confirmed Type Acetaminophen [Tylenol] 325 mg PO Q6HP PRN 05/20/17 05/20/17 History Atorvastatin Calcium [Atorvastatin 40 mg PO HS 05/20/17 05/20/17 History 40mg Tab] Bismuth Subsalicylate 30 ml PO Q4HP PRN 05/20/17 05/20/17 History [Pepto-Bismol] Cholecalciferol (Vitamin D3) 2 cap PO DAILY 05/20/17 05/20/17 History [Vitamin D3 1,000 Unit Tab] Divalproex Sodium [Divalproex 500 mg PO BID 05/20/17 05/20/17 History Sodium ER] Fenofibrate [Tricor 54mg tablet] 54 mg PO DAILY 05/20/17 05/20/17 History Gabapentin [Gabapentin 400mg Cap] 400 mg PO QID 05/20/17 05/20/17 History Hydrocortisone [Hydrocortisone 1% 0 gm TP DAILY 05/20/17 05/20/17 History Cream 30gm Tube] Lisinopril [Lisinopril 10mg Tab] 10 mg PO DAILY 05/20/17 05/20/17 History Loperamide HCl [Loperamide] 2 mg PO Q3HP PRN 05/20/17 05/20/17 History Mag Hydrox/Aluminum Hyd/Simeth 30 ml PO Q6HP PRN 05/20/17 05/20/17 History [Maalox Advanced Suspension] Multivitamin [Multivitamins] 1 each PO DAILY 05/20/17 05/20/17 History Nystatin [Nystatin Topical Powder 0 gm TP TID 05/20/17 05/20/17 History 30GM] OLANZapine [Olanzapine] 20 mg PO HS 05/20/17 05/20/17 History Ondansetron HCl [Ondansetron 4mg 4 mg PO DAILYP PRN 05/20/17 05/20/17 History Tab] Polyethylene Glycol 3350 [Miralax 17 gm PO DAILYP PRN 05/20/17 05/20/17 History Powder] Sertraline HCl [Zoloft] 100 mg PO DAILY 05/20/17 05/20/17 History diphenhydrAMINE HCl 25 mg PO Q6HP PRN 05/20/17 05/20/17 History [Diphenhydramine HCl] guaiFENesin [Robitussin 200mg/10mL 10 ml PO Q4HP PRN 05/20/17 05/20/17 History Syrup Udc] hydrOXYzine HCl [Hydroxyzine HCl] 25 mg PO TID 05/20/17 05/20/17 History Allergies Allergy/AdvReac Type Sever
--- NOTE | 2017-05-20 10:56 | HMH.PHAVTE ---
[facility] VTE Monitoring - Patient Demographics Admission date: 05/20/17 Report Date: 05/20/17 Time: 10:56 Allergies/Adverse Reactions: Patient Allergies buspirone [BUSPIRONE] Allergy (Unknown, Verified 04/14/17 14:36) esomeprazole [From NEXIUM] Allergy (Unknown, Verified 04/14/17 14:36) latex [LATEX] Allergy (Unknown, Verified 04/14/17 14:36) morphine [MORPHINE] Allergy (Unknown, Verified 04/14/17 14:36) pneumococcal vaccine Allergy (Unknown, Verified 04/14/17 14:36) Height: 1.65 m Weight: 79.549 kg Patient Problems: Current Active Problems Fever (Acute) Renal insufficiency (Acute) CAP (community acquired pneumonia) (Acute) Anemia (Acute) - VTE Risk Labs: VTE Related Lab Results Hgb 9.7 g/dL (12.2-16.2) L D 05/20/17 05:00 Hct 30.6 % (37.0-47.0) L 05/20/17 05:00 Plt Count 166 K/mm3 (142-424) 05/20/17 05:00 BUN 28 mg/dL (7-18) H 05/20/17 05:00 Creatinine 1.40 mg/dL (0.55-1.02) H 05/20/17 05:00 Estimated Creat Clear 47 mL/min (0-300) 05/20/17 05:00 Was VTE Risk Assessment Performed: Yes VTE Score: 7 VTE Risk Level: Moderate Risk - Prophylaxis Types of VTE Prophylaxis: TEDS Knee High (JOSE D HOSE ORDERED)
--- NOTE | 2017-05-20 18:16 | PC.NURSE ---
PT HAS HAD NO CHANGES. STILL HAS PRODUCTIVE COUGH WITH GREEN THICK SPUTUM. SPUTUM SAMPLE WAS OBTAINED THIS SHIFT. PT HAS SAT UP IN CHAIR AND AMBULATED TO BATHROOM THIS SHIFT. USES CALL LIGHT APPROPRIATELY. NONSKIDS ON. IV INFUSING ORDERED. WILL CONTINUE TO MONITOR PT CONDITION.
--- NOTE | 2017-05-20 19:41 | PC.NURSE ---
REPORT GIVEN TO SE ALLEN RN
[2017-05-21] VITALS (7 sets, daily range): BP systolic 122–140; BP diastolic 66–77; PULSE 67–90; RESP 18–22; TEMP 36.3–36.9; O2SAT 89–95
--- NOTE | 2017-05-21 04:29 | PC.NURSE ---
Pt has complained of a dry hacky cough this shift, denies pain. Pt ambulates well with assistance and contact guard assist (walker). Wheezes noted during lung auscultation. BS active in all 4 qauds. Redness noted to johnny. abdominal folds, pt states they were putting power on it at [facility], will notify am nurse or MD upon shift change. VSS. no acute distress noted. Will continue to monitor
--- NOTE | 2017-05-21 07:23 | PC.NURSE ---
REPORT GIVEN TO Amy VALDIVIA W/C
--- NOTE | 2017-05-21 07:44 | PC.NURSE ---
report given to mars pruitt rn
--- NOTE | 2017-05-21 08:29 | HMH.ACPN2 ---
Internal Medicine - PN: Subj *Date: 05/21/17 *Time: 08:29 Interval history: doing ok and sat in chair yesterday Exam Vital signs and Labs for Last 24 Hours: Temp Pulse Resp BP Pulse Ox 98.4 F 70 18 130/73 89 L 05/21/17 07:59 05/21/17 07:59 05/21/17 07:59 05/21/17 07:59 05/21/17 07:59 I & O for Last 24 hours: Intake & Output 05/18/17 05/19/17 05/20/17 05/21/17 11:59 11:59 11:59 11:59 Intake Total 2658 / 2658 Output Total 250 / 400 600 / 600 Balance -250 / -160 2057 / 2057 Weight 175 lb 6 oz - Constitutional no acute distress - *Routine HEENT Exam Head: Present: normocephalic Eye: Present: EOMI, PERRL ENT: Present: mucous membranes dry - *Routine Neck Exam Present: supple - *Routine Respiratory Exam Present: CTA bilaterally - *Routine Cardiovascular Exam Present: RRR, murmur - *Routine Abdominal Exam Present: soft - *Routine Extremities Exam Present: cyanosis. Absent: calf tenderness - *Routine Skin Exam Present: intact - *Routine Neurological Exam Present: alert, CN II-XII intact - Routine Psychiatric Exam Present: normal affect Assessment and Plan (1) CAP (community acquired pneumonia) Current visit: Yes Status: Acute Qualifiers: Laterality: right Lung location: lower lobe of lung Qualified Code(s): J18.1 - Lobar pneumonia, unspecified organism Category: Medical Code(s): J18.9 - Pneumonia, unspecified organism (2) Anemia Current visit: Yes Status: Acute Qualifiers: Anemia type: unspecified type Qualified Code(s): D64.9 - Anemia, unspecified Category: Medical Code(s): D64.9 - Anemia, unspecified (3) Renal insufficiency Current visit: Yes Status: Acute Category: Medical Code(s): N28.9 - Disorder of kidney and ureter, unspecified
--- NOTE | 2017-05-21 19:45 | PC.NURSE ---
REPORT GIVEN TO SE ALLEN RN
[2017-05-22] VITALS: BP 116/62; PULSE 72; RESP 20; TEMP 36.3; O2SAT 91
--- NOTE | 2017-05-22 03:39 | PC.NURSE ---
No complaints this shift. Pt has rested well. Wheezes noted during lung auscultation. BS active in all 4 qauds. Trace edema noted to BLE. Pt ambulating with help and walker to BR well. A&Ox3. VSS. No acute distress noted. Will continue to monitor.
[2017-05-22 03:42] VITALS: BP 139/71; PULSE 67; RESP 18; TEMP 36.3; O2SAT 91
[2017-05-22 06:51] LABS: Basophils % 0.2 % (0.1-2.0); Eosinophils # 0.2 K/mm3 (0.0-0.4); Eosinophils % 2.2 % (0.1-12.0); Hemoglobin 9.7 g/dL (12.2-16.2); Lymphocytes # 1.2 K/mm3 (0.7-4.5); Lymphocytes % 14.1 K/mm3 (10-50); Mean Corpuscular HGB Conc 31.4 g/dL (31.8-35.4); Mean Corpuscular Hemoglobin 28.4 pg (27.0-31.2); Mean Corpuscular Volume 90.5 fl (81-99); Mean Platelet Volume 8.4 fl (7.4-10.4); Monocytes # 0.4 K/mm3 (0.1-1.0); Monocytes % 4.5 % (1.7-9.3); Neutrophils # 6.7 K/mm3 (1.8-7.8); Platelet Count 186 K/mm3 (142-424); Red Blood Count 3.42 M/mm3 (4.20-5.40); Red Cell Distribution Width 14.4 % (11.5-17.5); White Blood Count 8.5 K/mm3 (4.8-10.8)
[2017-05-22 06:53] LABS: Anion Gap 10.2 mEq/L (5-15); Blood Urea Nitrogen 11 mg/dL (7-18); Carbon Dioxide 27 mmol/L (21.0-32.0); Chloride 111 mmol/L (98-107); Creatinine Clearance Estimated 66 mL/min (0-300); Creatinine,Serum 0.94 mg/dL (0.55-1.02); Estimated Glomerular Filt Rate 59 ml/min (>60); GFR (African American) 71 ML/MIN (>60); Glucose 86 mg/dL (74-106); Potassium 4.2 mmoL/L (3.5-5.1); Sodium 144 mmol/L (136-145)
[2017-05-22 07:25] VITALS: BP 139/73; PULSE 80; RESP 18; TEMP 36.6; O2SAT 90
--- NOTE | 2017-05-22 07:25 | PC.NURSE ---
REPORT GIVEN TO Adelina AGUILLON W/C
--- NOTE | 2017-05-22 07:46 | PC.NURSE ---
REPORT GIVEN TO Sara SZYMANSKI RN
[2017-05-22 09:00] VITALS: O2SAT 91
--- NOTE | 2017-05-22 11:21 | SW/DCPLANNER ---
Addendum entered by Kori Dhillon 05/22/17 13:25: [facility] will be taking this patient back per Suzanna. Original Note: Esperanza from [facility] will be up to re-evaluate this patient this afternoon. Patient could potentially be ready for discharge later today.
[2017-05-22 11:27] VITALS: BP 134/79; PULSE 72; RESP 18; TEMP 36.6; O2SAT 94
--- NOTE | 2017-05-22 11:46 | HMH.DCSUM ---
General - General Admission date: 05/20/17 Discharge date: 05/22/17 HPI HPI: this w[facility] who [facility] fever and confusion and weakness last pm and was sent to ed for eval- she was found to have fever with abn cxr and lt shift on cbc and was admitted with ivf and abx for cap Hospital Course Hospital Course: pt did well with ivf and abx with resp treatment - she had sig improvement in wbc and renal fuction and stable h/h - pt was at baseline with h/h - Objective Vital signs: Temp Pulse Resp BP Pulse Ox 97.8 F 72 18 134/79 94 L 05/22/17 11:27 05/22/17 11:27 05/22/17 11:27 05/22/17 11:27 05/22/17 11:27 no acute distress, average body habitus - *Routine HEENT Exam Head: Present: normocephalic Eye: Present: EOMI, PERRL. Absent: conjunctival icterus ENT: Present: mucous membranes dry - *Routine Neck Exam Present: supple. Absent: JVD, carotid bruit - *Routine Respiratory Exam Present: rhonchi. Absent: respiratory distress - *Routine Cardiovascular Exam Present: RRR, murmur. Absent: gallop, rubs - *Routine Abdominal Exam Present: soft - *Routine Skin Exam Present: intact - *Routine Neurological Exam Present: alert, oriented X3, CN II-XII intact, moving all extremities - Routine Psychiatric Exam Present: normal affect Results Labs on day of discharge: Labs from last 24 hours 05/22/17 05/22/17 06:23 06:23 WBC 8.5 D RBC 3.42 L Hgb 9.7 L Hct 31.0 L MCV 90.5 MCH 28.4 MCHC 31.4 L RDW 14.4 Plt Count 186 MPV 8.4 Neut % (Auto) 79.0 Lymph % (Auto) 14.1 [place] % (Auto) 4.5 Eos % (Auto) 2.2 Baso % (Auto) 0.2 Neut # (Auto) 6.7 Lymph # (Auto) 1.2 [place] # (Auto) 0.4 Eos # (Auto) 0.2 Baso # (Auto) 0.0 Sodium 144 Potassium 4.2 Chloride 111 H Carbon Dioxide 27 Anion Gap 10.2 BUN 11 D Creatinine 0.94 D Estimated Creat Clear 66 Estimated GFR 59 Est GFR ( Amer) 71 D Glucose 86 DS: Diagnosis - Discharge Diagnosis (1) CAP (community acquired pneumonia) Status: Acute (2) Anemia Status: Acute (3) Renal insufficiency Status: Resolved Discharge Plan - Patient Discharge Instructions ACTIVITY: Continue current activity DIET: continue same diet Patient Instructions: Anemia, Pneumonia-Adult - Follow up Plan Disposition: Home, Self-[facility] Medications: Home Medications Medication Instructions Recorded Confirmed Type Acetaminophen [Tylenol] 325 mg PO Q6HP PRN 05/20/17 05/20/17 History Atorvastatin Calcium [Atorvastatin 40 mg PO HS 05/20/17 05/20/17 History 40mg Tab] Bismuth Subsalicylate 30 ml PO Q4HP PRN 05/20/17 05/20/17 History [Pepto-Bismol] Cholecalciferol (Vitamin D3) 2 cap PO DAILY 05/20/17 05/20/17 History [Vitamin D3 1,000 Unit Tab] Divalproex Sodium [Divalproex 500 mg PO BID 05/20/17 05/20/17 History Sodium ER] Fenofibrate [Tricor 54mg tablet] 54 mg PO DAILY 05/20/17 05/20/17 History Gabapentin [Gabapentin 400mg Cap] 400 mg PO QID 05/20/17 05/20/17 History Hydrocortisone [Hydrocortisone 1% 0 gm TP DAILY 05/20/17 05/20/17 History Cream 30gm Tube] Lisinopril [Lisinopril 10mg Tab] 10 mg PO DAILY 05/20/17 05/20/17 History Loperamide HCl [Loperamide] 2 mg PO Q3HP PRN 05/20/17 05/20/17 History Mag Hydrox/Aluminum Hyd/Simeth 30 ml PO Q6HP PRN 05/20/17 05/20/17 History [Maalox Advanced Suspension] Multivitamin [Multivitamins] 1 each PO DAILY 05/20/17 05/20/17 History Nystatin [Nystatin Topical Powder 0 gm TP TID 05/20/17 05/20/17 History 30GM] OLANZapine [Olanzapine] 20 mg PO HS 05/20/17 05/20/17 History Ondansetron HCl [Ondansetron 4mg 4 mg PO DAILYP PRN 05/20/17 05/20/17 History Tab] Polyethylene Glycol 3350 [Miralax 17 gm PO DAILYP PRN 05/20/17 05/20/17 History Powder] Sertraline HCl [Zoloft] 100 mg PO DAILY 05/20/17 05/20/17 History diphenhydrAMINE HCl 25 mg PO Q6HP PRN 05/20/17 05/20/17 History [Diphenhydr
--- NOTE | 2017-05-22 11:50 | P.DS_ITS ---
General - General Admission date: 05/20/17 Discharge date: 05/22/17 HPI HPI: this wf who lives at local [facility] and dev fever and confusion and weakness last pm and was sent to ed for eval- she was found to have fever with abn cxr and lt shift on cbc and was admitted with ivf and abx for cap Hospital Course Hospital Course: pt did well with ivf and abx with resp treatment - she had sig improvement in wbc and renal fuction and stable h/h - pt was at baseline with h/h - Objective Vital signs: Temp Pulse Resp BP Pulse Ox 97.8 F 72 18 134/79 94 L 05/22/17 11:27 05/22/17 11:27 05/22/17 11:27 05/22/17 11:27 05/22/17 11:27 no acute distress, average body habitus - *Routine HEENT Exam Head: Present: normocephalic Eye: Present: EOMI, PERRL. Absent: conjunctival icterus ENT: Present: mucous membranes dry - *Routine Neck Exam Present: supple. Absent: JVD, carotid bruit - *Routine Respiratory Exam Present: rhonchi. Absent: respiratory distress - *Routine Cardiovascular Exam Present: RRR, murmur. Absent: gallop, rubs - *Routine Abdominal Exam Present: soft - *Routine Skin Exam Present: intact - *Routine Neurological Exam Present: alert, oriented X3, CN II-XII intact, moving all extremities - Routine Psychiatric Exam Present: normal affect Results Labs on day of discharge: Labs from last 24 hours 05/22/17 05/22/17 06:23 06:23 WBC 8.5 D RBC 3.42 L Hgb 9.7 L Hct 31.0 L MCV 90.5 MCH 28.4 MCHC 31.4 L RDW 14.4 Plt Count 186 MPV 8.4 Neut % (Auto) 79.0 Lymph % (Auto) 14.1 [place] % (Auto) 4.5 Eos % (Auto) 2.2 Baso % (Auto) 0.2 Neut # (Auto) 6.7 Lymph # (Auto) 1.2 [place] # (Auto) 0.4 Eos # (Auto) 0.2 Baso # (Auto) 0.0 Sodium 144 Potassium 4.2 Chloride 111 H Carbon Dioxide 27 Anion Gap 10.2 BUN 11 D Creatinine 0.94 D Estimated Creat Clear 66 Estimated GFR 59 Est GFR ( Amer) 71 D Glucose 86 DS: Diagnosis - Discharge Diagnosis (1) CAP (community acquired pneumonia) Status: Acute (2) Anemia Status: Acute (3) Renal insufficiency Status: Resolved Discharge Plan - Patient Discharge Instructions ACTIVITY: Continue current activity DIET: continue same diet Patient Instructions: Anemia, Pneumonia-Adult - Follow up Plan Disposition: Home, Self-Long Term Medications: Home Medications Medication Instructions Recorded Confirmed Type Acetaminophen [Tylenol] 325 mg PO Q6HP PRN 05/20/17 05/20/17 History Atorvastatin Calcium [Atorvastatin 40 mg PO HS 05/20/17 05/20/17 History 40mg Tab] Bismuth Subsalicylate 30 ml PO Q4HP PRN 05/20/17 05/20/17 History [Pepto-Bismol] Cholecalciferol (Vitamin D3) 2 cap PO DAILY 05/20/17 05/20/17 History [Vitamin D3 1,000 Unit Tab] Divalproex Sodium [Divalproex 500 mg PO BID 05/20/17 05/20/17 History Sodium ER] Fenofibrate [Tricor 54mg tablet] 54 mg PO DAILY 05/20/17 05/20/17 History Gabapentin [Gabapentin 400mg Cap] 400 mg PO QID 05/20/17 05/20/17 Histor
== END 2017-05-22 13:42 | disposition home or self-care (01) | DRG 195 ==
LOC: ER 02:05 → 2ND 02:38
PROVIDERS: Admitting Provider Emergency Medicine; Emergency Provider Emergency Medicine; Family Provider Surgery; Visit Provider Emergency Medicine
DX: J18.9 Pneumonia, unspecified organism (principal); N28.9 Disorder of kidney and ureter, unspecified; Z79.899 Other long term (current) drug therapy; Z88.5 Allergy status to narcotic agent; Z88.7 Allergy status to serum and vaccine; Z88.8 Allergy status to other drugs, medicaments and biological substances; Z91.040 Latex allergy status; Z85.528 Personal history of other malignant neoplasm of kidney
CPT/HCPCS: 36415; 71045; 80048; 81001; 83605; 85007; 85025; 87040; 87070; 87205; 87275; 87276; 87486; 87581; 87633; 87798; 96365; 96366; 99285; J0456

== ENCOUNTER 2018-09-08 01:35 | Inpatient (IN) ==
[2018-09-08 02:18] LABS: Basophils % 0.4 % (0.1-2.0); Eosinophils # 0.2 K/mm3 (0.0-0.4); Eosinophils % 3.5 % (0.1-12.0); Hematocrit 33.3 % (37.0-47.0); Hemoglobin 10.3 g/dL (12.2-16.2); Lymphocytes # 1.5 K/mm3 (0.7-4.5); Lymphocytes % 28.3 % (10-50); Mean Corpuscular HGB Conc 30.9 g/dL (31.8-35.4); Mean Platelet Volume 8.1 fl (7.4-10.4); Monocytes # 0.5 K/mm3 (0.1-1.0); Monocytes % 8.8 % (1.7-9.3); Neutrophils # 3.2 K/mm3 (1.8-7.8); Neutrophils % 59.1 % (37.0-80.0); Platelet Count 179 K/mm3 (142-424); Red Blood Count 3.92 M/mm3 (4.20-5.40); Red Cell Distribution Width 13.9 % (11.5-17.5); White Blood Count 5.4 K/mm3 (4.8-10.8)
[2018-09-08 02:36] LABS: Albumin/Globulin Ratio 0.7 (1.1-1.8); Bilirubin,Total 0.2 mg/dL (0.2-1.0); C-Reactive Protein 0.6 mg/L (0.0-0.9); Calcium 9.4 mg/dL (8.5-10.1); Globulin 4.1 gm/dl (1.3-3.2); Total Protein,Serum 7.1 gm/dL (6.4-8.2)
--- NOTE | 2018-09-08 02:42 | Emergency Department Note ---
ED Disposition Clinical Impression: Cellulitis of both lower extremities, Renal insufficiency Anemia Qualifiers: Anemia type: unspecified type Qualified Code(s): D64.9 - Anemia, unspecified Hyperlipemia Qualifiers: Hyperlipidemia type: unspecified Qualified Code(s): E78.5 - Hyperlipidemia, unspecified HTN (hypertension) Qualifiers: Hypertension type: essential hypertension Qualified Code(s): I10 - Essential (primary) hypertension Disposition: Admitted as Observation Condition on Discharge: Good Referrals: Provider,Referral, [Primary Care Provider] - - Critical Care Critical Care Time: No Attestation: On 09/08/18, the high probability of a clinically significant, sudden or life threatening deterioration of the following system(s) required my full and direct attention, intervention and personal management. The time I documented below is in addition to time spent performing reported procedures but includes the following listed in this critical care notation. Medical Decision Making - Medical Records Medical records reviewed: Yes: I reviewed the patient's medical records. - Thomas Inquiry Pt receiving controlled substance: No Vital Signs: 09/08/18 01:35 09/08/18 01:36 09/08/18 02:05 Temperature 97.9 F 97.9 F Temperature Source Oral Oral Pulse Rate [Right Radial] 74 74 70 Respiratory Rate 18 18 18 Blood Pressure [Right Arm] 149/92 H 149/92 H 142/89 H Blood Pressure Mean [Right Arm] 111 111 106 Blood Pressure Source [Right Arm] Automatic Cuff Blood Pressure Position [Right Arm] Supine 02 Sat by Pulse Oximetry 95 95 95 Oxygen Delivery Method Room Air - Lab Data Lab results reviewed: Yes: I reviewed the patient's lab results. Lab Results 09/08/18 02:00: WBC 5.4, RBC 3.92 L, Hgb 10.3 L, Hct 33.3 L, MCV 85.0, MCH 26.3 L, MCHC 30.9 L, RDW 13.9, Plt Count 179, MPV 8.1, Neut % (Auto) 59.1, Lymph % (Auto) 28.3, [place] % (Auto) 8.8, Eos % (Auto) 3.5, Baso % (Auto) 0.4, Neut # (Auto) 3.2, Lymph # (Auto) 1.5, [place] # (Auto) 0.5, Eos # (Auto) 0.2, Baso # (Auto) 0.0 09/08/18 02:00: Sodium 140, Potassium 5.0, Chloride 106, Carbon Dioxide 30, Anion Gap 9.0, BUN 27 H, Creatinine 1.28 H, Estimated Creat Clear 72, Estimated GFR 41 L, Est GFR ( Amer) 50 L, Glucose 93, Calcium 9.4, Total Bilirubin 0.2, AST 21, ALT 27, Alkaline Phosphatase 105, C-Reactive Protein 0.6, Total Protein 7.1, Albumin 3.0 L, Globulin 4.1 H, Albumin/Globulin Ratio 0.7 L, Total Valproic Acid 34.2 L Result diagrams: 09/08/18 02:00 09/08/18 02:00 Orders (Tests/Meds): ED MEDICATIONS Generic Name Dose Route Start Last Admin Trade Name Freq PRN Reason Stop Dose Admin Ampicillin Sodium/Sulbactam 100 mls @ 200 mls/hr 09/08/18 02:45 Sodium 3 gm/ Sodium Chloride IV 09/22/18 02:44 Q8H [facility] Protocol ORDERS Category Date Time Status Complete Blood Count Auto Diff Stat Lab 09/08/18 02:00 Results Erythrocyte Sedimentation Rate Stat Lab 09/08/18 02:00 Results Lactic Acid Stat Lab 09/08/18 02:00 Received Blood Culture Stat Micro 09/08/18 02:04 Received Skin/Abscess/FB HPI - General Chief complaint: Extremity Injury, Lower Stated complaint: leg swelling Time Seen by Provider: 09/08/18 02:00 Mode of Arrival: Ambulatory Source of Information: Patient, EMS, Medical Record Limitations: No Limitations Description of Symptoms (Recalled from ER Triage Doc. by RN): pt c/o bilateral lower extremity redness and swelling - History of Present Illness HPI narrative: progressive lower ext swelling over the last week with no resp to op treatment - she is not known diabetic MD complaint: rash Onset (ago): hour(s) Tetanus up to date: unsure Location: LLE, RLE Severity: severe Associated symptoms: denies other symptoms Treatments prior to arrival: antibiotic - Related Data Home Medications Medication Instructions Recorded Confirmed Acetaminophen [Tylenol 325mg 325 mg PO Q6HP PRN 05/20/17 09/08/18 Tablet] Atorvastatin Calcium [Atorvastatin 40 mg PO HS 05/20/17 09/08/18 40mg Tab] Bismuth Subsalicylate 30 ml PO Q4HP PRN 05/20/17 09/08/18 [Pepto-Bismol] Cholecalciferol (Vitamin D3) 2 cap PO DAILY 05/20/17 09/08/18 [Vitamin D3 1,000 Unit Tab] Divalproex Sodium [Divalproex 500 mg PO BID 05/20/17 09/08/18 Sodium ER] Fenofibrate [Tricor 54mg tablet] 54 mg PO DAILY 05/20/17 09/08/18 Gabapentin [Gabapentin 400mg Cap] 400 mg PO QID 05/20/17 09/08/18 Loperamide HCl [Loperamide] 2 mg PO Q3HP PRN 05/20/17 09/08/18 Mag Hydrox/Aluminum Hyd/Simeth 30 ml PO Q6HP PRN 05/20/17 09/08/18 [Maalox Advanced Suspension] Multivitamin [Multivitamins] 1 each PO DAILY 05/20/17 09/08/18 OLANZapine [Olanzapine] 20 mg PO HS 05/20/17 09/08/18 Ondansetron HCl [Ondansetron 4mg 4 mg PO DAILYP PRN 05/20/17 09/08/18 Tab] Polyethylene Glycol 3350 [Miralax 17 gm PO DAILYP PRN 05/20/17 09/08/18 Powder] diphenhydrAMINE HCl 25 mg PO Q6HP PRN 05/20/17 09/08/18 [Diphenhydramine HCl] guaiFENesin [Robitussin 200mg/10mL 10 ml PO Q4HP PRN 05/20/17 09/08/18 Syrup Udc] hydrOXYzine HCl [Hydroxyzine HCl] 25 mg PO TID 05/20/17 09/08/18 Lisinopril [Lisinopril 10mg Tab] 10 mg PO DAILY 09/08/18 09/08/18 Sertraline HCl [Zoloft] 50 mg PO DAILY 09/08/18 09/08/18 Allergies Allergy/AdvReac Type Severity Reaction Status Date / Time buspirone [BUSPIRONE] Allergy Unknown Verified 09/08/18 01:41 esomeprazole [From NEXIUM] Allergy Unknown Verified 09/08/18 01:41 latex [LATEX] Allergy Unknown Verified 09/08/18 01:41 morphine [MORPHINE] Allergy Unknown Verified 09/08/18 01:41 pneumococcal vaccine Allergy Unknown Verified 09/08/18 01:41 [facility] History - Hepatitis A Screen Drug use history?: No High risk sexual behaviors?: No History of sexually transmitted infection?: No Currently employed?: No Childcare worker?: No Do you have indoor plumbing?: Yes Do you have electricity?: Yes Attestation statement:: This patient has been screened for Hepatitis A risk factors. I have reviewed the patient's past medical history: Yes Medical History: Reports:: Cancer (left kidney) Denies:: Diabetes Mellitus Type 1, Diabetes Mellitus Type 2, MRSA Amputation: No Fractures: No - Social History Smoking Status: Never smoker Alcohol Intake: never Occupational Status: disabled Housing: other Family Hx:: Unable to obtain ROS Obtained: Yes All systems reviewed & no additional complaints - Constitutional Constitutional: Denies fever(s) - Eyes Eyes: Denies change in vision - ENT Ears, Nose, Mouth, and Throat: Denies sore throat - Cardiovascular Cardiovascular: Denies chest pain - Respiratory Respiratory: No cough - Gastrointestinal Gastrointestingal: Denies: abdominal pain - Genitourinary Female Genitourinary: Denies hematuria - Musculoskeletal Musculoskeletal: Denies joint pain, Denies joint swelling - Integumentary/Breasts Skin/Breast: Reports as per HPI - Neurologic Neurologic: Denies dizziness, Denies seizure-like activity, Reports sensory deficit Physical Exam - General General appearance: alert, obese - Head Head exam: normocephalic - Eye Eye exam: Present: PERRL, EOMI. Absent: scleral icterus - ENT ENT exam: Present: mucous membranes dry - Neck Neck exam: Present: trachea midline - Respiratory Respiratory exam: Present: normal lung sounds bilaterally. Absent: respiratory distress - Cardiovascular Cardiovascular exam: Present: regular rate, systolic murmur, +S4 - Abdominal Exam Abdominal exam: Present: soft - Extremities Exam Extremities exam: Absent: calf tenderness - Neurological Exam Neurological exam: Present: alert, CN II-XII intact - Psychiatric Psychiatric exam: Present: flat affect - Skin Skin exam: Present: erythema (lower ext cellulitis bilat ), other
[2018-09-08 02:45] LABS: Erythrocyte Sedimentation Rate 24 mm/hr (0-30)
--- NOTE | 2018-09-08 08:33 | History & Physical Report ---
*Admission Date: 09/08/18 *Chief complaint: swollen lower ext *History of present illness: this wf presented to the ed from local [facility] with progressive swelling and reddness of lower ext despite op abx treatment - she was seen in the ed and admitted for ivf and abx [facility] History I have reviewed the patient's past medical history: Yes Medical History: Reports:: Cancer (left kidney) Denies:: Diabetes Mellitus Type 1, Diabetes Mellitus Type 2, MRSA *Have you ever received a pneumonia vaccine?: No *Have you received a flu vaccine this season?: No Amputation: No Fractures: No - *Social History Smoking Status: Never smoker Alcohol Intake: never *Occupational Status:: disabled Housing: other *Travel in the last 8 weeks: None - Psychiatric History Expresses thoughts of harming self/others: None Suicide Plan Description: No Plan Family Hx:: Unable to obtain Review of Systems - Review of Systems Review of systems:: pertinent systems reviewed and negative unless documented below - Constitutional Reports weakness, Denies fever(s) - Eyes Denies change in vision - ENT Reports dry mouth, Denies sore throat - *Cardiovascular Denies chest pain at rest, Denies shortness of breath - *Respiratory Denies cough - *Gastrointestinal Denies abdominal pain - *Genitourinary Denies blood in urine - *Musculoskeletal Denies joint pain - Integumentary/Breasts Reports rash - *Neurologic Reports sensory deficit, Denies dizziness, Denies seizure-like activity - Psychiatric Denies anxiety Meds Home Medications Medication Instructions Recorded Confirmed Type Acetaminophen [Tylenol 325mg 325 mg PO Q6HP PRN 05/20/17 09/08/18 History Tablet] Atorvastatin Calcium [Atorvastatin 40 mg PO HS 05/20/17 09/08/18 History 40mg Tab] Bismuth Subsalicylate 30 ml PO Q4HP PRN 05/20/17 09/08/18 History [Pepto-Bismol] Cholecalciferol (Vitamin D3) 2 cap PO DAILY 05/20/17 09/08/18 History [Vitamin D3 1,000 Unit Tab] Fenofibrate [Tricor 54mg tablet] 54 mg PO DAILY 05/20/17 09/08/18 History Gabapentin [Gabapentin 400mg Cap] 400 mg PO QID 05/20/17 09/08/18 History Loperamide HCl [Loperamide] 2 mg PO Q3HP PRN 05/20/17 09/08/18 History Mag Hydrox/Aluminum Hyd/Simeth 30 ml PO Q6HP PRN 05/20/17 09/08/18 History [Maalox Advanced Suspension] Multivitamin [Multivitamins] 1 each PO DAILY 05/20/17 09/08/18 History OLANZapine [Olanzapine] 20 mg PO HS 05/20/17 09/08/18 History Polyethylene Glycol 3350 [Miralax 17 gm PO DAILYP PRN 05/20/17 09/08/18 History Powder] diphenhydrAMINE HCl 25 mg PO Q6HP PRN 05/20/17 09/08/18 History [Diphenhydramine HCl] guaiFENesin [Robitussin 200mg/10mL 10 ml PO Q4HP PRN 05/20/17 09/08/18 History Syrup Udc] hydrOXYzine HCl [Hydroxyzine HCl] 25 mg PO TID 05/20/17 09/08/18 History Divalproex Sodium [Depakote] 500 mg PO BID 09/08/18 09/08/18 History Lisinopril [Lisinopril 10mg Tab] 10 mg PO DAILY 09/08/18 09/08/18 History Ondansetron HCl [Ondansetron 4mg 4 mg PO DAILYP PRN 09/08/18 09/08/18 History Tablet] Sertraline HCl [Zoloft] 150 mg PO DAILY 09/08/18 09/08/18 History Allergies Allergy/AdvReac Type Severity Reaction Status Date / Time buspirone [BUSPIRONE] Allergy Unknown Verified 09/08/18 03:31 esomeprazole [From NEXIUM] Allergy Unknown Verified 09/08/18 03:31 latex [LATEX] Allergy Unknown Verified 09/08/18 03:31 morphine [MORPHINE] Allergy Unknown Verified 09/08/18 03:31 pneumococcal vaccine Allergy Unknown Verified 09/08/18 03:31 peanut Allergy Verified 09/08/18 03:31 Exam Vital signs and Labs for Last 24 Hours: Temp Pulse Resp BP Pulse Ox 97.6 F 68 17 140/87 96 09/08/18 03:35 09/08/18 03:35 09/08/18 03:35 09/08/18 03:35 09/08/18 03:35 Laboratory Results - last 24 hr 09/08/18 02:00: WBC 5.4, RBC 3.92 L, Hgb 10.3 L, Hct 33.3 L, MCV 85.0, MCH 26.3 L, MCHC 30.9 L, RDW 13.9, Plt Count 179, MPV 8.1, Neut % (Auto) 59.1, Lymph % (Auto) 28.3, [place] % (Auto) 8.8, Eos % (Auto) 3.5, Baso % (Auto) 0.4, Neut # (Auto) 3.2, Lymph # (Auto) 1.5, [place] # (Auto) 0.5, Eos # (Auto) 0.2, Baso # (Auto) 0.0, ESR 24 09/08/18 02:00: Sodium 140, Potassium 5.0, Chloride 106, Carbon Dioxide 30, Anion Gap 9.0, BUN 27 H, Creatinine 1.28 H, Estimated Creat Clear 72, Estimated GFR 41 L, Est GFR ( Amer) 50 L, Glucose 93, Calcium 9.4, Total Bilirubin 0.2, AST 21, ALT 27, Alkaline Phosphatase 105, C-Reactive Protein 0.6, Total Protein 7.1, Albumin 3.0 L, Globulin 4.1 H, Albumin/Globulin Ratio 0.7 L, Total Valproic Acid 34.2 L 09/08/18 02:00: Lactate 0.5 I & O for Last 24 hours: Intake & Output 09/05/18 09/06/18 09/07/18 09/08/18 11:59 11:59 11:59 11:59 Intake Total Balance Weight 184 lb 2 oz - Constitutional no acute distress, obese - *Routine HEENT Exam Head: Present: normocephalic Eye: Present: EOMI, PERRL ENT: Present: mucous membranes dry - *Routine Neck Exam Absent: JVD - *Routine Respiratory Exam Present: decreased breath sounds - *Routine Cardiovascular Exam Present: RRR, murmur - *Routine Abdominal Exam Present: soft - *Routine Extremities Exam Present: edema. Absent: calf tenderness - *Routine Skin Exam Present: erythema Comments: bilat reddness lower ext - *Routine Neurological Exam Present: alert, CN II-XII intact - Routine Psychiatric Exam Comments: at baseline Assessment and Plan (1) Lower extremity cellulitis Current visit: Yes Status: Acute Qualifiers: Laterality: unspecified laterality Qualified Code(s): L03.119 - Cellulitis of unspecified part of limb Category: Medical Code(s): L03.119 - Cellulitis of unspecified part of limb (2) Obesity (BMI 30-39.9) Current visit: Yes Status: Acute Category: Medical Code(s): E66.9 - Obesity, unspecified (3) Renal insufficiency Current visit: No Status: Resolved Category: Medical Code(s): N28.9 - Disorder of kidney and ureter, unspecified (4) HTN (hypertension) Current visit: Yes Status: Acute Qualifiers: Hypertension type: essential hypertension Qualified Code(s): I10 - Essential (primary) hypertension Category: Medical Code(s): I10 - Essential (primary) hypertension (5) Hyperlipidemia Current visit: Yes Status: Acute Qualifiers: Hyperlipidemia type: unspecified Qualified Code(s): E78.5 - Hyperlipidemia, unspecified Category: Medical Code(s): E78.5 - Hyperlipidemia, unspecified (6) Psychosis Current visit: Yes Status: Acute Qualifiers: Psychosis type: unspecified psychosis type Qualified Code(s): 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stance or known physiological condition Category: Medical Code(s): 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stance or known physiological condition
--- NOTE | 2018-09-08 10:29 | Pharmacy Consult Notes ---
[facility] Pharmacy VTE Monitoring - Patient Demographics Admission date: 09/08/18 Report Date: 09/08/18 Time: 10:29 Allergies/Adverse Reactions: Patient Allergies buspirone [BUSPIRONE] Allergy (Unknown, Verified 09/08/18 03:31) esomeprazole [From NEXIUM] Allergy (Unknown, Verified 09/08/18 03:31) latex [LATEX] Allergy (Unknown, Verified 09/08/18 03:31) morphine [MORPHINE] Allergy (Unknown, Verified 09/08/18 03:31) pneumococcal vaccine Allergy (Unknown, Verified 09/08/18 03:31) peanut Allergy (Verified 09/08/18 03:31) Height: 1.52 m Weight: 83.518 kg Patient Problems: Current Active Problems (Updated 09/08/18 @ 08:33 by Catracho Wong MD) Anemia (Acute) Renal insufficiency (Acute) Cellulitis of both lower extremities (Acute) Hyperlipemia (Acute) HTN (hypertension) (Acute) - VTE Risk Labs: VTE Related Lab Results Hgb 10.3 g/dL (12.2-16.2) L 09/08/18 02:00 Hct 33.3 % (37.0-47.0) L 09/08/18 02:00 Plt Count 179 K/mm3 (142-424) 09/08/18 02:00 BUN 27 mg/dL (7-18) H 09/08/18 02:00 Creatinine 1.28 mg/dL (0.55-1.02) H 09/08/18 02:00 Estimated Creat Clear 72 mL/min (50-200) 09/08/18 02:00 Was VTE Risk Assessment Performed: Yes VTE Score: 3 VTE Risk Level: Low Risk - Prophylaxis VTE Prophylaxis Ordered?: Yes Types of VTE Prophylaxis: TEDS Knee High Location of Applied Device: Bilateral Lower Extremeties
--- NOTE | 2018-09-09 08:52 | Progress Note ---
Internal Medicine - PN: Subj *Date: 09/09/18 *Time: 08:51 Interval history: doing better - dry skin Exam Vital signs and Labs for Last 24 Hours: Temp Pulse Resp BP Pulse Ox 97.6 F 66 18 177/90 H 94 L 09/09/18 08:00 09/09/18 08:00 09/09/18 08:00 09/09/18 08:00 09/09/18 08:00 I & O for Last 24 hours: Intake & Output 09/06/18 09/07/18 09/08/18 09/09/18 11:59 11:59 11:59 11:59 Intake Total 321 / 321 1644 / 1644 Balance 321 / 321 1644 / 1644 Weight 184 lb 2 oz 184 lb 2 oz - Constitutional no acute distress, obese - *Routine HEENT Exam Head: Present: normocephalic Eye: Present: EOMI, PERRL ENT: Present: mucous membranes dry - *Routine Neck Exam Present: supple - *Routine Respiratory Exam Present: decreased breath sounds - *Routine Cardiovascular Exam Present: RRR, murmur - *Routine Abdominal Exam Present: soft - *Routine Extremities Exam Present: edema. Absent: calf tenderness - *Routine Skin Exam Comments: improved - *Routine Neurological Exam Present: alert, CN II-XII intact - Routine Psychiatric Exam Present: normal affect. Absent: good insight Assessment and Plan (1) Lower extremity cellulitis Current visit: Yes Status: Acute Qualifiers: Laterality: unspecified laterality Qualified Code(s): L03.119 - Cellulitis of unspecified part of limb Category: Medical Code(s): L03.119 - Cellulitis of unspecified part of limb (2) Obesity (BMI 30-39.9) Current visit: Yes Status: Acute Category: Medical Code(s): E66.9 - Obesity, unspecified (3) Renal insufficiency Current visit: No Status: Resolved Category: Medical Code(s): N28.9 - Disorder of kidney and ureter, unspecified (4) HTN (hypertension) Current visit: Yes Status: Acute Qualifiers: Hypertension type: essential hypertension Qualified Code(s): I10 - Essential (primary) hypertension Category: Medical Code(s): I10 - Essential (primary) hypertension (5) Hyperlipidemia Current visit: Yes Status: Acute Qualifiers: Hyperlipidemia type: unspecified Qualified Code(s): E78.5 - Hyperlipidemia, unspecified Category: Medical Code(s): E78.5 - Hyperlipidemia, unspecified (6) Psychosis Current visit: Yes Status: Acute Qualifiers: Psychosis type: unspecified psychosis type Qualified Code(s): 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stance or known physiological condition Category: Medical Code(s): 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stance or known physiological condition
[2018-09-10 08:17] LABS: Basophils % 0.6 % (0.1-2.0); Eosinophils # 0.3 K/mm3 (0.0-0.4); Hematocrit 33.4 % (37.0-47.0); Hemoglobin 10.3 g/dL (12.2-16.2); Lymphocytes # 1.1 K/mm3 (0.7-4.5); Lymphocytes % 24.7 % (10-50); Mean Corpuscular HGB Conc 30.8 g/dL (31.8-35.4); Mean Corpuscular Volume 87.3 fl (81-99); Mean Platelet Volume 10.1 fl (7.4-10.4); Monocytes # 0.2 K/mm3 (0.1-1.0); Monocytes % 4.5 % (1.7-9.3); Neutrophils % 64.2 % (37.0-80.0); Platelet Count 166 K/mm3 (142-424); Red Blood Count 3.83 M/mm3 (4.20-5.40); Red Cell Distribution Width 14.2 % (11.5-17.5); White Blood Count 4.6 K/mm3 (4.8-10.8)
[2018-09-10 08:24] LABS: Anion Gap 11.3 mEq/L (5-15); Calcium 9.1 mg/dL (8.5-10.1)
--- NOTE | 2018-09-10 12:50 | Discharge Summary ---
General - General Admission date:: 09/08/18 Discharge date: 09/10/18 HPI HPI: this wf presented to the ed from local [facility] with progressive swelling and reddness of lower ext despite op abx treatment - she was seen in the ed and admitted for ivf and abx Hospital Course Hospital Course: pt was admitted and placed on ivf abx with good response with dec reddness and she had stable labs and vs and letty diet and was seen by therapy and stable to be d/c back to [facility] Objective Vital signs: Temp Pulse Resp BP Pulse Ox 97.6 F 81 16 139/91 H 93 L 09/10/18 07:31 09/10/18 07:31 09/10/18 07:31 09/10/18 07:31 09/10/18 07:31 no acute distress, obese - *Routine HEENT Exam Head: Present: normocephalic Eye: Present: EOMI, PERRL. Absent: conjunctival icterus ENT: Present: mucous membranes dry - *Routine Neck Exam Absent: JVD - *Routine Respiratory Exam Present: CTA bilaterally - *Routine Cardiovascular Exam Present: RRR, murmur - *Routine Abdominal Exam Present: soft - *Routine Extremities Exam Present: edema. Absent: calf tenderness Comments: mild reddness at this time - *Routine Skin Exam Present: warm - *Routine Neurological Exam Present: alert, oriented X3, CN II-XII intact - Routine Psychiatric Exam Absent: anxious Results Labs on day of discharge: Labs from last 24 hours 09/10/18 09/10/18 08:07 08:07 WBC 4.6 L RBC 3.83 L Hgb 10.3 L Hct 33.4 L MCV 87.3 MCH 26.9 L MCHC 30.8 L RDW 14.2 Plt Count 166 MPV 10.1 Neut % (Auto) 64.2 Lymph % (Auto) 24.7 [place] % (Auto) 4.5 Eos % (Auto) 6.0 Baso % (Auto) 0.6 Neut # (Auto) 3.0 Lymph # (Auto) 1.1 [place] # (Auto) 0.2 Eos # (Auto) 0.3 Baso # (Auto) 0.0 Sodium 140 Potassium 4.3 Chloride 105 Carbon Dioxide 28 Anion Gap 11.3 BUN 27 H Creatinine 1.27 H Estimated Creat Clear 53 Estimated GFR 41 L Est GFR ( Amer) 50 L Glucose 120 H Calcium 9.1 Preliminary micro results at discharge 09/08/18 02:04 Blood Culture - Preliminary Blood NO GROWTH AFTER 48 HOURS 09/08/18 02:04 Blood Culture - Preliminary Blood NO GROWTH AFTER 48 HOURS DS: Diagnosis - Discharge Diagnosis (1) Lower extremity cellulitis Status: Acute (2) Obesity (BMI 30-39.9) Status: Acute (3) Renal insufficiency Status: Resolved (4) HTN (hypertension) Status: Acute (5) Hyperlipidemia Status: Acute (6) Psychosis Status: Acute Discharge Plan - Patient Discharge Instructions ACTIVITY: Continue current activity DIET: continue same diet Patient Instructions: DI for Cellulitis -- Adult, Kidney Failure, Anemia - Follow up Plan Disposition: Home, Self-[facility] Medications: Home Medications Medication Instructions Recorded Confirmed Type Acetaminophen [Tylenol 325mg 325 mg PO Q6HP PRN 05/20/17 09/08/18 History Tablet] Atorvastatin Calcium [Atorvastatin 40 mg PO HS 05/20/17 09/08/18 History 40mg Tab] Bismuth Subsalicylate 30 ml PO Q4HP PRN 05/20/17 09/08/18 History [Pepto-Bismol] Cholecalciferol (Vitamin D3) 2 cap PO DAILY 05/20/17 09/08/18 History [Vitamin D3 1,000 Unit Tab] Fenofibrate [Tricor 54mg tablet] 54 mg PO DAILY 05/20/17 09/08/18 History Gabapentin [Gabapentin 400mg Cap] 400 mg PO QID 05/20/17 09/08/18 History Loperamide HCl [Loperamide] 2 mg PO Q3HP PRN 05/20/17 09/08/18 History Mag Hydrox/Aluminum Hyd/Simeth 30 ml PO Q6HP PRN 05/20/17 09/08/18 History [Maalox Advanced Suspension] Multivitamin [Multivitamins] 1 each PO DAILY 05/20/17 09/08/18 History OLANZapine [Olanzapine] 20 mg PO HS 05/20/17 09/08/18 History Polyethylene Glycol 3350 [Miralax 17 gm PO DAILYP PRN 05/20/17 09/08/18 History Powder] diphenhydrAMINE HCl 25 mg PO Q6HP PRN 05/20/17 09/08/18 History [Diphenhydramine HCl] guaiFENesin [Robitussin 200mg/10mL 10 ml PO Q4HP PRN 05/20/17 09/08/18 History Syrup Udc] hydrOXYzine HCl [Hydroxyzine HCl] 25 mg PO TID 05/20/17 09/08/18 History Divalproex Sodium [Depakote] 500 mg PO BID 09/08/18 09/08/18 History Lisinopril [Lisinopril 10mg Tab] 10 mg PO DAILY 09/08/18 09/08/18 History Ondansetron HCl [Ondansetron 4mg 4 mg PO DAILYP PRN 09/08/18 09/08/18 History Tablet] Sertraline HCl [Zoloft] 150 mg PO DAILY 09/08/18 09/08/18 History Amoxicillin/Potassium Clav 1 tab PO Q12H 7 Days #14 tab 09/10/18 Rx [Augmentin 875-125 Tablet] Prescriptions/Medication Reconciliation: New Divalproex Sodium [Depakote (Delayed Release) 500mg Tab] 500 mg PO BID tablet Atorvastatin Calcium [Lipitor 40mg Tablet] 40 mg PO HS tablet Amoxicillin/Potassium Clav [Augmentin 875-125 Tablet] 1 tab PO Q12H 7 Days #14 tab Continued OLANZapine [Olanzapine] 20 mg PO HS Multivitamin [Multivitamins] 1 each PO DAILY hydrOXYzine HCl [Hydroxyzine HCl] 25 mg PO TID Gabapentin [Gabapentin 400mg Cap] 400 mg PO QID Fenofibrate [Tricor 54mg tablet] 54 mg PO DAILY Cholecalciferol (Vitamin D3) [Vitamin D3 1,000 Unit Tab] 2 cap PO DAILY Atorvastatin Calcium [Atorvastatin 40mg Tab] 40 mg PO HS Loperamide HCl [Loperamide] 2 mg PO Q3HP PRN PRN Reason: Diarrhea diphenhydrAMINE HCl [Diphenhydramine HCl] 25 mg PO Q6HP PRN PRN Reason: Allergic Reaction Bismuth Subsalicylate [Pepto-Bismol] 30 ml PO Q4HP PRN PRN Reason: Indigestion Mag Hydrox/Aluminum Hyd/Simeth [Maalox Advanced Suspension] 30 ml PO Q6HP PRN PRN Reason: Indigestion Acetaminophen [Tylenol 325mg Tablet] 325 mg PO Q6HP PRN PRN Reason: Mild Pain Polyethylene Glycol 3350 [Miralax Powder] 17 gm PO DAILYP PRN PRN Reason: Constipation guaiFENesin [Robitussin 200mg/10mL Syrup Udc] 10 ml PO Q4HP PRN PRN Reason: Cough Sertraline HCl [Zoloft] 150 mg PO DAILY Ondansetron HCl [Ondansetron 4mg Tablet] 4 mg PO DAILYP PRN PRN Reason: Nausea And Vomiting Divalproex Sodium [Depakote] 500 mg PO BID Lisinopril [Lisinopril 10mg Tab] 10 mg PO DAILY
== END 2018-09-10 14:12 | disposition home or self-care (01) | DRG 603 ==
LOC: ER 01:35 → 2ND 01:35
PROVIDERS: ADMIT Emergency Medicine; ATTEND Emergency Medicine

== ENCOUNTER 2019-07-14 08:07 | Emergency (ER) | payer MEDICARE, SELFPAY ==
[2019-07-14 08:08] VITALS: BP 114/70; PULSE 85; RESP 20; TEMP 37; O2SAT 95; BMI 38.0
--- NOTE | 2019-07-14 08:10 | HMH.EDSKAF ---
ED Disposition Clinical Impression: Erythema of lower extremity Disposition: Home, Self-Care Condition on Discharge: Good Instructions: DI for Peripheral Edema -- Bilateral Referrals: Catracho Wong MD [Primary Care Provider] - 3 days - Critical Care Critical Care Time: No Attestation: On , the high probability of a clinically significant, sudden or life threatening deterioration of the following system(s) required my full and direct attention, intervention and personal management. The time I documented below is in addition to time spent performing reported procedures but includes the following listed in this critical care notation. Medical Decision Making - Medical Records Medical records reviewed: Yes: I reviewed the patient's medical records. - Thomas Inquiry Pt receiving controlled substance: No Vital Signs: 07/14/19 08:08 Temperature 98.6 F Temperature Source Oral Pulse Rate [Right Radial] 85 Respiratory Rate 20 Blood Pressure [Right Arm] 114/70 Blood Pressure Mean [Right Arm] 84 Blood Pressure Source [Right Arm] Automatic Cuff Blood Pressure Position [Right Arm] Sitting 02 Sat by Pulse Oximetry 95 Oxygen Delivery Method Room Air - Lab Data Lab Results 07/14/19 08:19: WBC 4.0 L, RBC 3.66 L, Hgb 10.2 L, Hct 31.4 L, MCV 85.9, MCH 27.8, MCHC 32.4, RDW 14.8, Plt Count 147, MPV 8.2, Neut % (Auto) 69.5, Lymph % (Auto) 15.7, [place] % (Auto) 10.5 H, Eos % (Auto) 2.0, Baso % (Auto) 2.3 H, Neut # (Auto) 2.8, Lymph # (Auto) 0.6 L, [place] # (Auto) 0.4, Eos # (Auto) 0.1, Baso # (Auto) 0.1 Result diagrams: 07/14/19 08:19 Medical Decision Narrative: Patient has no leukocytosis, no fever this is unlikely acute infectious cellulitis especially given report of having the symptoms for several months. She does not have any pain and no unilateral calf swelling or tenderness that would suggest DVT. This is more likely to represent a dependent edema and erythema. Recommended compression stockings, elevation of the feet and advised follow-up with primary care provider in the next 2 to 3 days for reevaluation. Discharged home. Skin/Abscess/FB HPI - General Chief complaint: Skin/Abscess/Foreign Body Stated complaint: cellulitis Time Seen by Provider: 07/14/19 08:10 Mode of Arrival: EMS Source of Information: Patient, EMS Limitations: No Limitations - History of Present Illness HPI narrative: This is a 73-year-old female with a past medical history significant for hypertension, hyperlipidemia, psychiatric disease who presents to the emergency department for evaluation of redness on bilateral lower extremities for several months. No fevers. There were no reported acute events this morning. Patient denies any new pain in her legs. No chest pain or difficulty breathing. No known exacerbating or alleviating factors. - Related Data Home Medications Medication Instructions Recorded Confirmed Acetaminophen [Tylenol 325mg 325 mg PO Q6HP PRN 05/20/17 07/14/19 Tablet] Atorvastatin Calcium [Atorvastatin 40 mg PO HS 05/20/17 07/14/19 40mg Tab] Bismuth Subsalicylate 30 ml PO Q4HP PRN 05/20/17 07/14/19 [Pepto-Bismol] Cholecalciferol (Vitamin D3) 2 cap PO DAILY 05/20/17 07/14/19 [Vitamin D3 1,000 Unit Tab] Fenofibrate [Tricor 54mg tablet] 54 mg PO DAILY 05/20/17 07/14/19 Gabapentin [Gabapentin 400mg Cap] 400 mg PO QID 05/20/17 07/14/19 Loperamide HCl [Loperamide] 2 mg PO Q3HP PRN 05/20/17 07/14/19 Mag Hydrox/Aluminum Hyd/Simeth 30 ml PO Q6HP PRN 05/20/17 07/14/19 [Maalox Advanced Suspension] Multivitamin [Multivitamins] 1 each PO DAILY 05/20/17 07/14/19 OLANZapine [Olanzapine] 20 mg PO HS 05/20/17 07/14/19 diphenhydrAMINE HCL 25 mg PO Q6HP PRN 05/20/17 07/14/19 [Diphenhydramine HCl] guaiFENesin [Robitussin 200mg/10mL 10 ml PO Q4HP PRN 05/20/17 07/14/19 Syrup Udc] hydrOXYzine HCL [Hydroxyzine HCl] 25 mg PO TID 05/20/17 07/14/19 polyethylene glycoL 3350 [Miralax 17 gm PO DAILYP PRN 05/20/17
--- NOTE | 2019-07-14 08:22 | PC.NURSE ---
blood sent to lab.
[2019-07-14 08:28] LABS: Basophils # 0.1 K/mm3 (0-0.2); Basophils % 2.3 % (0.1-2.0); Eosinophils # 0.1 K/mm3 (0.0-0.4); Hematocrit 31.4 % (37.0-47.0); Hemoglobin 10.2 g/dL (12.2-16.2); Lymphocytes # 0.6 K/mm3 (0.7-4.5); Lymphocytes % 15.7 % (10-50); Mean Corpuscular HGB Conc 32.4 g/dL (31.8-35.4); Mean Corpuscular Hemoglobin 27.8 pg (27.0-31.2); Mean Corpuscular Volume 85.9 fl (81-99); Mean Platelet Volume 8.2 fl (7.4-10.4); Monocytes # 0.4 K/mm3 (0.1-1.0); Monocytes % 10.5 % (1.7-9.3); Neutrophils # 2.8 K/mm3 (1.8-7.8); Neutrophils % 69.5 % (37.0-80.0); Platelet Count 147 K/mm3 (142-424); Red Blood Count 3.66 M/mm3 (4.20-5.40); Red Cell Distribution Width 14.8 % (11.5-17.5)
--- NOTE | 2019-07-14 08:45 | PC.NURSE ---
[facility] called for transport
[2019-07-14 09:16] VITALS: BP 113/78; PULSE 82; RESP 20; TEMP 37; O2SAT 97
== END 2019-07-14 09:16 | disposition home or self-care (01) ==
PROVIDERS: Emergency Provider Emergency Medicine; PCP Emergency Medicine
DX: L03.116 Cellulitis of left lower limb (principal); L03.115 Cellulitis of right lower limb; Z79.899 Other long term (current) drug therapy; I10 Essential (primary) hypertension; F29 Unspecified psychosis not due to a substance or known physiological condition; K21.9 Gastro-esophageal reflux disease without esophagitis
CPT/HCPCS: 85025; 99282

== ENCOUNTER 2019-07-16 01:35 | Inpatient (IN) | payer MEDICARE, SELFPAY ==
[2019-07-16] VITALS (14 sets, daily range): BP systolic 97–187; BP diastolic 36–94; PULSE 67–104; RESP 15–22; TEMP 36.7–38.1; O2SAT 4–98; BMI 34.3; BMI 39.1
--- NOTE | 2019-07-16 01:41 | XR_ITS ---
PROCEDURE: XR CHEST PORTABLE CLINICAL HISTORY: fall Posttraumatic pain, COMPARISON: [id number] XR chest portable from 05/20/2017 XR CHEST PORTABLE from 10/04/2018 XR CHEST AP from 03/09/2019 FINDINGS: The cardiomediastinal silhouette and pulmonary vascularity are within normal limits. Increased markings are present in the right lower lobe consistent with atelectasis and/or infiltrate. Of questionable nodular opacity also noted in this region possibly due to summation artifact. Degenerative changes of the shoulders IMPRESSION: Right lower lobe atelectasis or infiltrate with possible right lower lobe nodule Dictated by: Black Godfrey MD 07/16/2019 06:56 Electronically signed by Black Godfrey MD in [place] 07/16/2019 06:56
--- NOTE | 2019-07-16 01:41 | XR_ITS ---
PROCEDURE: XR HIP LT 2-3V W/PELVIS CLINICAL INDICATION: fall Pain following injury COMPARISON: XR HIP RT 2-3V W/PELVIS from 03/09/2019 FINDINGS: No acute fracture or dislocation. Mild osteoarthritic change. No lytic or blastic change. IMPRESSION: No acute findings. Dictated by: Black Godfrey MD 07/16/2019 06:58 Electronically signed by Black oGdfrey MD in [facility] 07/16/2019 06:58
--- NOTE | 2019-07-16 01:41 | XR_ITS ---
PROCEDURE: XR HIP RT 2-3V W/PELVIS CLINICAL INDICATION: fall Posttraumatic pain COMPARISON: XR HIP LT 2-3V W/PELVIS from 07/16/2019 FINDINGS: No obvious fracture or dislocation. Mild osteoarthritic change. No lytic or blastic change IMPRESSION: No acute findings. Dictated by: Black Godfrey MD 07/16/2019 06:57 Electronically signed by Black Godfrey MD in [facility] 07/16/2019 06:57
--- NOTE | 2019-07-16 02:03 | HMH.EDFALL ---
ED Disposition Clinical Impression: Obesity (BMI 30-39.9), COVID-19 virus infection Contusion of hip, left Qualifiers: Encounter type: initial encounter Qualified Code(s): S70.02XA - Contusion of left hip, initial encounter Fall Qualifiers: Encounter type: initial encounter Qualified Code(s): W19.XXXA - Unspecified fall, initial encounter Disposition: Admitted as Observation Condition on Discharge: Good - Critical Care Critical Care Time: No Attestation: On 07/16/19, the high probability of a clinically significant, sudden or life threatening deterioration of the following system(s) required my full and direct attention, intervention and personal management. The time I documented below is in addition to time spent performing reported procedures but includes the following listed in this critical care notation. Medical Decision Making - Medical Records Medical records reviewed: Yes: I reviewed the patient's medical records. - Thomas Inquiry Pt receiving controlled substance: No Vital Signs: 07/16/19 01:35 07/16/19 02:35 07/16/19 03:35 Temperature 98.1 F Temperature Source Oral Pulse Rate [Right Brachial] 83 67 79 Respiratory Rate 18 17 16 Blood Pressure [Right Arm] 143/93 H 160/70 H 156/94 H Blood Pressure Mean [Right Arm] 109 100 114 Blood Pressure Source [Right Arm] Manual Cuff/ Doppler Automatic Cuff Blood Pressure Position [Right Arm] Sitting Sitting Supine 02 Sat by Pulse Oximetry 97 95 97 Oxygen Delivery Method Room Air Room Air Room Air Oxygen Flow Rate (LPM) 07/16/19 04:48 07/16/19 06:47 07/16/19 08:54 Temperature 98.0 F Temperature Source Oral Pulse Rate [Right Brachial] 79 75 93 H Respiratory Rate 15 18 18 Blood Pressure [Right Arm] 154/70 H 142/75 H 97/36 L Blood Pressure Mean [Right Arm] 98 97 56 Blood Pressure Source [Right Arm] Automatic Cuff Automatic Cuff Automatic Cuff Blood Pressure Position [Right Arm] Supine Sitting Supine 02 Sat by Pulse Oximetry 95 98 98 Oxygen Delivery Method Room Air Room Air Room Air Oxygen Flow Rate (LPM) 07/16/19 10:14 Temperature Temperature Source Pulse Rate [Right Brachial] 104 H Respiratory Rate 18 Blood Pressure [Right Arm] 146/44 H Blood Pressure Mean [Right Arm] 78 Blood Pressure Source [Right Arm] Automatic Cuff Blood Pressure Position [Right Arm] Sitting 02 Sat by Pulse Oximetry 91 L Oxygen Delivery Method Nasal Cannula Oxygen Flow Rate (LPM) 49 - Lab Data Lab results reviewed: Yes: I reviewed the patient's lab results. Lab Results 07/16/19 08:20: Chlamy pneumoniae PCR Not detected, Adenovirus (PCR) Not detected, B. pertussis DNA (PCR) Not detected, Coronavirus OC43 (PCR) Not detected, Coronavirus HKU1 (PCR) Not detected, Coronavirus 229E (PCR) Not detected, COVID-19 PCR Detected A, Coronavirus NL63 (PCR) Not detected, Human Metapneumovir PCR Not detected, Influenza A (H1) PCR Not detected, Influ A (H1N1/09) PCR Not detected, Influenza A (H3) PCR Not detected, Influenza Type A (PCR) Not detected, Influenza Type B (PCR) Not detected, M. pneumoniae (PCR) Not detected, Parainfluenza 1 (PCR) Not detected, Parainfluenza 2 (PCR) Not detected, Parainfluenza 3 (PCR) Not detected, Parainfluenza 4 (PCR) Not detected, RSV (PCR) Not detected, Entero/Rhino (PCR) Not detected 07/16/19 08:20: WBC 6.4 D, RBC 3.84 L, Hgb 10.8 L, Hct 32.6 L, MCV 85.0, MCH 28.1, MCHC 33.1, RDW 14.7, Plt Count 143, MPV 8.4, Neut % (Auto) 86.7 H, Lymph % (Auto) 7.5 L, [place] % (Auto) 4.9, Eos % (Auto) 0.1, Baso % (Auto) 0.8, Neut # (Auto) 5.6, Lymph # (Auto) 0.5 L, [place] # (Auto) 0.3, Eos # (Auto) 0.0, Baso # (Auto) 0.1, Total Counted 100, Neutrophils % (Manual) 90 H, Lymphocytes % (Manual) 7 L, Monocytes % (Manual) 3, Platelet Estimate Normal, Hypochromasia 1+ 07/16/19 08:20: Sodium 137, Potassium 4.2, Chloride 100, Carbon Dioxide 28, Anion Gap 13.2, BUN 29 H, Creatinine 1.40 H, Estimated Creat Clear 52, Estimated GFR 37 L, Est GFR ( Amer) 45 L, Glucose 101 H, Michael
--- NOTE | 2019-07-16 03:10 | PC.NURSE ---
states pt is essentially discharged, however he is gonna just wait and have radiology do their second reading prior to her going back to [facility]. pt is resting comfortably without complaint, snoring audibly. encouraged her to reposition often while laying on bed. agreed. called and spoke with [facility] rep who is aware we are waiting till radiologist can read test. no acute distress. will monitor vitals hourly due to lack of acuity.
--- NOTE | 2019-07-16 06:47 | PC.NURSE ---
spoke with villa bender with rad; dr monreal to read xrays. notified
--- NOTE | 2019-07-16 07:20 | PC.NURSE ---
Called [facility] related to patients need for transfer back to their facility. States they will have to call their nursery manager.
--- NOTE | 2019-07-16 08:25 | PC.NURSE ---
covid testing completed by lab
[2019-07-16 08:35] LABS: Adenovirus,PCR Not Detected (NotDetected); Bordetella Pertussis Not Detected (NotDetected); Chlamydophila Pneumoniae, PCR Not Detected (NotDetected); Coronavirus 229E Not Detected (NotDetected); Coronavirus NL63 Not Detected (NotDetected); Coronavirus OC43 Not Detected (NotDetected); Coronovirus HKU1,PCR Not Detected (NotDetected); Human Metapneumovirus Not Detected (NotDetected); Influenza A, PCR Not Detected (NotDetected); Influenza AH1, 2009 Not Detected (NotDetected); Influenza AH1, PCR Not Detected (NotDetected); Influenza AH3,PCR Not Detected (NotDetected); Influenza B, PCR Not Detected (NotDetected); Mycoplasma Pneumoniae, PCR Not Detected (NotDected); Parainfluenza 1, PCR Not Detected (NotDetected); Parainfluenza 2, PCR Not Detected (NotDetected); Parainfluenza 3, PCR Not Detected (NotDetected); Parainfluenza 4, PCR Not Detected (NotDetected); Respiratory Syncytial Virus Not Detected (NotDetected); Rhinovirus/Enterovirus Not Detected (NotDetected)
[2019-07-16 08:40] LABS: Basophils # 0.1 K/mm3 (0-0.2); Basophils % 0.8 % (0.1-2.0); Eosinophils % 0.1 % (0.1-12.0); Hematocrit 32.6 % (37.0-47.0); Hemoglobin 10.8 g/dL (12.2-16.2); Lymphocytes # 0.5 K/mm3 (0.7-4.5); Lymphocytes % 7.5 % (10-50); Mean Corpuscular HGB Conc 33.1 g/dL (31.8-35.4); Mean Corpuscular Hemoglobin 28.1 pg (27.0-31.2); Mean Platelet Volume 8.4 fl (7.4-10.4); Monocytes # 0.3 K/mm3 (0.1-1.0); Monocytes % 4.9 % (1.7-9.3); Neutrophils # 5.6 K/mm3 (1.8-7.8); Neutrophils % 86.7 % (37.0-80.0); Platelet Count 143 K/mm3 (142-424); Red Blood Count 3.84 M/mm3 (4.20-5.40); Red Cell Distribution Width 14.7 % (11.5-17.5); White Blood Count 6.4 K/mm3 (4.8-10.8)
[2019-07-16 08:44] LABS: Chloride 100 mmol/L (98-107); Potassium 4.2 mmoL/L (3.5-5.1); Sodium 137 mmol/L (136-145)
[2019-07-16 08:47] LABS: Alanine Aminotransferase 33 U/L (12-78); Albumin Level 3.9 g/dl (3.5-5.0); Alkaline Phosphatase 83 U/L (38-126); Anion Gap 13.2 mEq/L (5-15); Aspartate Amino Transferase 72 U/L (14-36); Bilirubin,Total 0.4 mg/dl (0.2-1.3); Blood Urea Nitrogen 29 mg/dl (7-17); Calcium 8.8 mg/dl (8.4-10.2); Carbon Dioxide 28 mmol/L (22.0-30.0); Creatinine Clearance Estimated 52 mL/min (50-200); Estimated Glomerular Filt Rate 37 ml/min (>60); GFR (African American) 45 ML/MIN (>60); Globulin 4.1 g/dL (1.3-3.2); Glucose 101 mg/dl (74-100)
[2019-07-16 08:53] LABS: MANUAL DIFFERENTIAL MANUAL DIFFERENTIAL (MANUAL DIFF)
[2019-07-16 09:05] LABS: Hypochromasia 1+; Lymphocytes % 7 % (10-50); Monocytes % 3 % (2-9); Neutrophils % 90 % (42-76); Platelet Estimate Normal; Total Cells Counted 100
[2019-07-16 09:55] LABS: Coronavirus 19, PCR Detected (NotDetected)
--- NOTE | 2019-07-16 10:06 | PC.NURSE ---
notified of positive Covid test.
--- NOTE | 2019-07-16 10:07 | PC.NURSE ---
spoke with [facility] care management pt to be admitted acute.
--- NOTE | 2019-07-16 10:08 | PC.NURSE ---
Advised dr mendes of positive covid test, he is to admit to covid unit
--- NOTE | 2019-07-16 11:27 | PC.NURSE ---
RN aware of high temp.
--- NOTE | 2019-07-16 13:57 | HMH.PHAVTE ---
[facility] Pharmacy VTE Monitoring - Patient Demographics Admission date: 07/16/19 Report Date: 07/16/19 Time: 13:57 Allergies/Adverse Reactions: Patient Allergies buspirone [BUSPIRONE] Allergy (Unknown, Verified 03/09/19 20:14) esomeprazole [From NEXIUM] Allergy (Unknown, Verified 03/09/19 20:14) latex [LATEX] Allergy (Unknown, Verified 03/09/19 20:14) morphine [MORPHINE] Allergy (Unknown, Verified 03/09/19 20:14) pneumococcal vaccine Allergy (Unknown, Verified 03/09/19 20:14) peanut Allergy (Verified 03/09/19 20:14) Height: 1.52 m Weight: 90.945 kg Patient Problems: Current Active Problems Fall (Acute) Obesity (BMI 30-39.9) (Acute) Contusion of hip, left (Acute) COVID-19 virus infection (Acute) - VTE Risk Labs: VTE Related Lab Results Hgb 10.8 g/dL (12.2-16.2) L 07/16/19 08:20 Hct 32.6 % (37.0-47.0) L 07/16/19 08:20 Plt Count 143 K/mm3 (142-424) 07/16/19 08:20 BUN 29 mg/dl (7-17) H 07/16/19 08:20 Creatinine 1.40 mg/dl (0.52-1.04) H 07/16/19 08:20 Estimated Creat Clear 52 mL/min (50-200) 07/16/19 08:20 Clinical Trial Participant: No - Prophylaxis VTE Prophylaxis Ordered?: Yes Types of VTE Prophylaxis: TEDS Knee High, Pharmacological Location of Applied Device: Bilateral Lower Extremeties Pharmacologic Type: Enoxaparin
--- NOTE | 2019-07-16 14:15 | HMH.PHAINT ---
HOME MEDICATION RECONCILIATION COMPLETED USING LIST FROM [facility] AND [facility]
--- NOTE | 2019-07-16 14:59 | CARE MANAGER ---
Late entry: Received phone call from Dr. Wong this AM stating that [facility] had stated to ER nurse that they ([facility]) would not take this patient back to their facility. This correctional casework specialist called and spoke with Echo at [facility] and she stated that patient had been teetering at their facility for some time. Echo said patient could not stand on her feet on her own and her knees would give out on her and she was really trying. I asked Echo if these findings were chronic or acute and she stated that the problems were chronic and they had not attempted to find a higher level of care for this patient, she also indicated that the patient had to be picked up out of the floor twice by their staff. This information was relayed to Dr. Wong CM staff will begin process of obtaining this patient a higher level of care once she is deemed medically stable.
--- NOTE | 2019-07-16 15:25 | PC.NURSE ---
Confirmed meds based on mar from [facility], they're not all listed. Pharmacy has confirmed meds as well. Ensured this with Ye. Pt is alert and oriented but can be hard to understand at times. Pt is weak, and remains on 4 L NC. Pt hasn't complained of anything, just looking for glasses, in which i don't see at this time. Did start an IV in R AC and it is SL at this time. Hernia noted to abd upon assessment, non tender and soft abd. S1,S2 noted. Pt did have audile wheezes noted upon assessment and is very hoarse when speaking. VSS. Will cont to mx this shift, pt sitting up semi fowlers position. CB in reach.
--- NOTE | 2019-07-16 15:33 | HMH.HP ---
*Admission Date: 07/16/19 *Chief complaint: fall *History of present illness: this pt is from local [facility]-pt had fallen during transfer as she usually is wheelchair bound- no cough and no sob at this time - she c/o of weakness -pt was examined and no acute fx noted but dec ambulation and was found to be covid-19 positive -pt unable to return to [facility] sec to multiple falls and dec ambulation [facility] History I have reviewed the patient's past medical history: Yes Medical History: Reports:: Cancer (kidney), Hyperlipidemia, Hypertension Denies:: Diabetes Mellitus Type 1, Diabetes Mellitus Type 2, Internal Pacemaker, MRSA, Seizures *Have you ever received a pneumonia vaccine?: No *Have you received a flu vaccine this season?: No Other Medical History: Reports: Anemia Other Surgeries: Yes: Other (nephrectomy). No: Pacemaker Amputation: No Fractures: No - *Social History Smoking Status: Never smoker Alcohol Intake: never *Occupational Status:: disabled Housing: assisted living facility Household Members: caregiver *Travel in the last 8 weeks: None Family Hx:: Unable to obtain Review of Systems - Review of Systems Review of systems:: pertinent systems reviewed and negative unless documented below - Constitutional Denies fever(s) - Eyes Denies change in vision - ENT Denies dizziness, Denies throat swelling - *Cardiovascular Denies chest pain at rest, Denies chest pain with activity - *Respiratory Denies cough - *Gastrointestinal Denies abdominal pain - *Genitourinary Denies blood in urine - *Musculoskeletal Denies joint pain, Denies neck pain - Integumentary/Breasts Denies rash - *Neurologic Denies headache(s), Denies seizure-like activity - Psychiatric Denies confusion Meds Home Medications Medication Instructions Recorded Confirmed Type Acetaminophen [Tylenol 325mg 650 mg PO Q6HP PRN 05/20/17 07/16/19 History Tablet] Atorvastatin Calcium [Atorvastatin 40 mg PO HS 05/20/17 07/16/19 History 40mg Tab] Bismuth Subsalicylate 30 ml PO Q4HP PRN 05/20/17 07/16/19 History [Pepto-Bismol] Cholecalciferol (Vitamin D3) 2,000 units PO DAILY 05/20/17 07/16/19 History [Vitamin D3 1,000 Unit Tab] Fenofibrate [Tricor 54mg tablet] 54 mg PO DAILY 05/20/17 07/16/19 History Gabapentin [Gabapentin 400mg Cap] 400 mg PO QID 05/20/17 07/16/19 History Loperamide HCl [Loperamide] 2 mg PO Q8HP PRN 05/20/17 07/16/19 History Mag Hydrox/Aluminum Hyd/Simeth 10 ml PO Q6HP PRN 05/20/17 07/16/19 History [Maalox Advanced Suspension] Multivitamin [Multivitamins] 1 each PO DAILY 05/20/17 07/16/19 History OLANZapine [Olanzapine] 20 mg PO HS 05/20/17 07/16/19 History diphenhydrAMINE HCL 25 mg PO Q6HP PRN 05/20/17 07/16/19 History [Diphenhydramine HCl] hydrOXYzine HCL [Hydroxyzine HCl] 25 mg PO TID 05/20/17 07/16/19 History polyethylene glycoL 3350 [Miralax 17 gm PO DAILYP PRN 05/20/17 07/16/19 History Powder] Divalproex Sodium [Depakote] 500 mg PO BID 09/08/18 07/16/19 History Sertraline HCl [Zoloft] 150 mg PO DAILY 09/08/18 07/16/19 History lisinopriL [Lisinopril 10mg Tab] 10 mg PO DAILY 09/08/18 07/16/19 History Allergies Allergy/AdvReac Type Severity Reaction Status Date / Time buspirone [BUSPIRONE] Allergy Unknown Verified 03/09/19 20:14 esomeprazole [From NEXIUM] Allergy Unknown Verified 03/09/19 20:14 latex [LATEX] Allergy Unknown Verified 03/09/19 20:14 morphine [MORPHINE] Allergy Unknown Verified 03/09/19 20:14 pneumococcal vaccine Allergy Unknown Verified 03/09/19 20:14 peanut Allergy Verified 03/09/19 20:14 Exam Vital signs and Labs for Last 24 Hours: Temp Pulse Resp BP Pulse Ox 100.6 F H 91 H 22 149/75 H 4 L 07/16/19 11:19 07/16/19 11:19 07/16/19 11:19 07/16/19 11:19 07/16/19 14:15 Laboratory Results - last 24 hr 07/16/19 08:20: Chlamy pneumoniae PCR Not detected, Adenovirus (PCR) Not detected, B. pertussis DNA (PCR) Not detected, Coronavirus O
--- NOTE | 2019-07-16 16:15 | PC.NURSE ---
Called and spoke with Abigail at primary care and requested something for pts wheezing/ rhonchi. Awaiting cb at this time. Pt continues on 4 L NC.
--- NOTE | 2019-07-16 17:32 | PC.NURSE ---
Addendum entered by Chuck Ocampo RN 07/16/19 18:33: Abigail stated Dr. Wong also plans to round on pt tonight. Original Note: Received orders from Abigail from Dr. Wong for combivent inhaler every 4-6 hrs prn.
[2019-07-17] VITALS (7 sets, daily range): BP systolic 121–161; BP diastolic 71–102; PULSE 74–89; RESP 18–28; TEMP 36.5–38.1; O2SAT 90–94; BMI 38.8
--- NOTE | 2019-07-17 00:44 | PC.NURSE ---
pt o2 sat sustained 86-86%, prn inhaler administer, breath sounds more clear than previous assessment, but still some crackles with diminished bases, pt pulled up and repositioned in bed, remains on NC 4L, sats now sustaining 90-91%
[2019-07-17 05:25] LABS: Basophils # 0.1 K/mm3 (0-0.2); Basophils % 0.7 % (0.1-2.0); Eosinophils % 0.5 % (0.1-12.0); Hematocrit 30.1 % (37.0-47.0); Hemoglobin 10.1 g/dL (12.2-16.2); Lymphocytes # 0.6 K/mm3 (0.7-4.5); Lymphocytes % 9.3 % (10-50); Mean Corpuscular HGB Conc 33.6 g/dL (31.8-35.4); Mean Corpuscular Hemoglobin 28.3 pg (27.0-31.2); Mean Corpuscular Volume 84.3 fl (81-99); Mean Platelet Volume 9.3 fl (7.4-10.4); Monocytes # 0.3 K/mm3 (0.1-1.0); Monocytes % 4.3 % (1.7-9.3); Neutrophils # 5.8 K/mm3 (1.8-7.8); Neutrophils % 85.1 % (37.0-80.0); Platelet Count 122 K/mm3 (142-424); Red Blood Count 3.57 M/mm3 (4.20-5.40); Red Cell Distribution Width 14.8 % (11.5-17.5); White Blood Count 6.8 K/mm3 (4.8-10.8)
[2019-07-17 05:26] LABS: Chloride 102 mmol/L (98-107); Potassium 4.6 mmoL/L (3.5-5.1); Sodium 137 mmol/L (136-145)
[2019-07-17 05:28] LABS: Blood Urea Nitrogen 27 mg/dl (7-17); Creatinine Clearance Estimated 73 mL/min (50-200); Estimated Glomerular Filt Rate 55 ml/min (>60); GFR (African American) 66 ML/MIN (>60)
[2019-07-17 05:29] LABS: Anion Gap 11.6 mEq/L (5-15); Calcium 8.5 mg/dl (8.4-10.2); Carbon Dioxide 28 mmol/L (22.0-30.0); Glucose 100 mg/dl (74-100); Magnesium 1.7 mg/dl (1.6-2.3)
[2019-07-17 06:00] LABS: MANUAL DIFFERENTIAL MANUAL DIFFERENTIAL (MANUAL DIFF)
--- NOTE | 2019-07-17 06:50 | PC.NURSE ---
shift summary, temps remain between 99.0 to 100.5 throughout shift, O2 sat have been between 85 to 94 on 4L NC, at times cough persistent and has complained of SOB at those times. Pt complaining of body aches.
[2019-07-17 07:47] LABS: T4 (Thyroxine) 5.9 ug/dl (5.53-11.0)
[2019-07-17 08:00] LABS: Thyroid Stimulating Hormone 2.86 uIU/mL (0.465-4.68)
--- NOTE | 2019-07-17 08:36 | XR_ITS ---
PROCEDURE: XR CHEST PORTABLE CLINICAL HISTORY: SOA Shortness of air COMPARISON: CXR1 CHEST-PORTABLE from 07/12/2015 XR CHEST PORTABLE from 10/04/2018 XR CHEST AP from 03/09/2019 XR CHEST PORTABLE from 07/16/2019 FINDINGS: There are low lung volumes. There is mild cardiomegaly without failure. Consolidation once again noted in the right lower lobe and has worsened compared to the previous exam. Upper lobes are clear. There may also be some patchy infiltrate in the left lung base. There are osteoarthritic changes of the shoulders. There is some periosteal calcification proximal left humerus region which is chronic. The IMPRESSION: Worsening right lower lobe pneumonia with possible atelectasis or infiltrate in the left lower lobe. Dictated by: Black Godfrey MD 07/17/2019 09:30 Electronically signed by Black Godfrey MD in [facility] 07/17/2019 09:30
--- NOTE | 2019-07-17 08:37 | HMH.ACPN2 ---
Internal Medicine - PN: Subj *Date: 07/17/19 *Time: 08:37 Interval history: 73-year-old female patient sitting up in bed tolerating breakfast without any difficulties. Room air sats 90 to 92% on 4 L per nasal cannula. Temp 100.6 over night. Exam Vital signs and Labs for Last 24 Hours: Temp Pulse Resp BP Pulse Ox 97.7 F 85 18 151/82 H 90 L 07/17/19 07:58 07/17/19 07:58 07/17/19 07:58 07/17/19 07:58 07/17/19 07:58 Laboratory Results - last 24 hr 07/16/19 08:20: Chlamy pneumoniae PCR Not detected, Adenovirus (PCR) Not detected, B. pertussis DNA (PCR) Not detected, Coronavirus OC43 (PCR) Not detected, Coronavirus HKU1 (PCR) Not detected, Coronavirus 229E (PCR) Not detected, COVID-19 PCR Detected A, Coronavirus NL63 (PCR) Not detected, Human Metapneumovir PCR Not detected, Influenza A (H1) PCR Not detected, Influ A (H1N1/09) PCR Not detected, Influenza A (H3) PCR Not detected, Influenza Type A (PCR) Not detected, Influenza Type B (PCR) Not detected, M. pneumoniae (PCR) Not detected, Parainfluenza 1 (PCR) Not detected, Parainfluenza 2 (PCR) Not detected, Parainfluenza 3 (PCR) Not detected, Parainfluenza 4 (PCR) Not detected, RSV (PCR) Not detected, Entero/Rhino (PCR) Not detected 07/16/19 08:20: WBC 6.4 D, RBC 3.84 L, Hgb 10.8 L, Hct 32.6 L, MCV 85.0, MCH 28.1, MCHC 33.1, RDW 14.7, Plt Count 143, MPV 8.4, Neut % (Auto) 86.7 H, Lymph % (Auto) 7.5 L, [place] % (Auto) 4.9, Eos % (Auto) 0.1, Baso % (Auto) 0.8, Neut # (Auto) 5.6, Lymph # (Auto) 0.5 L, [place] # (Auto) 0.3, Eos # (Auto) 0.0, Baso # (Auto) 0.1, Total Counted 100, Neutrophils % (Manual) 90 H, Lymphocytes % (Manual) 7 L, Monocytes % (Manual) 3, Platelet Estimate Normal, Hypochromasia 1+ 07/16/19 08:20: Sodium 137, Potassium 4.2, Chloride 100, Carbon Dioxide 28, Anion Gap 13.2, BUN 29 H, Creatinine 1.40 H, Estimated Creat Clear 52, Estimated GFR 37 L, Est GFR ( Amer) 45 L, Glucose 101 H, Calcium 8.8, Total Bilirubin 0.4, AST 72 H, ALT 33, Alkaline Phosphatase 83, Total Protein 8.0, Albumin 3.9, Globulin 4.1 H, Albumin/Globulin Ratio 1.0 L 07/17/19 04:50: WBC 6.8, RBC 3.57 L, Hgb 10.1 L, Hct 30.1 L, MCV 84.3, MCH 28.3, MCHC 33.6, RDW 14.8, Plt Count 122 L, MPV 9.3, Neut % (Auto) 85.1 H, Lymph % (Auto) 9.3 L, [place] % (Auto) 4.3, Eos % (Auto) 0.5, Baso % (Auto) 0.7, Neut # (Auto) 5.8, Lymph # (Auto) 0.6 L, [place] # (Auto) 0.3, Eos # (Auto) 0.0, Baso # (Auto) 0.1 07/17/19 04:50: Sodium 137, Potassium 4.6, Chloride 102, Carbon Dioxide 28, Anion Gap 11.6, BUN 27 H, Creatinine 1.00 D, Estimated Creat Clear 73, Estimated GFR 55 L, Est GFR ( Amer) 66 D, Glucose 100, Calcium 8.5, Magnesium 1.7 07/17/19 04:50: TSH 2.86, Thyroxine (T4) 5.9 I & O for Last 24 hours: Intake & Output 07/14/19 07/15/19 07/16/19 07/17/19 23:59 23:59 23:59 23:59 Intake Total 480 / 480 120 / 120 Balance 480 / 480 120 / 120 Weight 200 lb 8 oz 198 lb - Constitutional no acute distress - *Routine HEENT Exam Head: Present: normocephalic ENT: Present: mucous membranes dry - *Routine Neck Exam Present: full ROM, trachea midline. Absent: JVD, tracheal deviation - *Routine Respiratory Exam Present: rales Comments: Rales BLL - *Routine Cardiovascular Exam Present: RRR, murmur - *Routine Abdominal Exam Present: soft, normoactive bowel sounds. Absent: tenderness, firm - *Routine Extremities Exam Present: edema, pulses intact, calf tenderness Comments: BLE Edema R>L - *Routine Skin Exam Present: intact, warm. Absent: jaundice - *Routine Neurological Exam Present: alert, oriented X3 - Routine Psychiatric Exam Present: normal affect Assessment and Plan (1) HTN (hypertension) Current visit: No Status: Acute Qualifiers: Hypertension type: essential hypertension Qualified Code(s): I10 - Essential (primary) hypertension Category: Medical Code(s): I10 - Essential (primary) hypertension (2) Obesity (BMI 30-39.9) Current visit: Yes Status: Acute C
--- NOTE | 2019-07-17 11:09 | PC.NURSE ---
PT HAS BEEN RESTING IN BED. THE ONLY COMPLAINTS THIS MORNING WAS TENDERNESS IN HER BLE. PT HAS NON-PITTING 1+ EDEMA NOTED . TEDS NOTED TO BLE. LUNG SOUNDS HAVE COURSE BILATERAL CRACKLES. NON-PRODUCTIVE COUGH. PT HAS NOT BEEN ABLE TO TAKE ANYTHING BY MOUTH THIS MORNING W/O COUGHING. (OTIS NOTIFIED AND STATED HE WOULD LET KNOW) PT HAS ATTEMPTED TO USE THE BEDPAN THIS AM BUT WAS UNABLE TO HAVE A BOWEL MOVEMENT. 02 SATURATION HAS MAINTAINED 88-92% ON 4 L NC. WILL CONTINUE TO MONITOR.
[2019-07-17 12:32] LABS: Lymphocytes % 11 % (10-50); Monocytes % 6 % (2-9); Neutrophils % 73 % (42-76); Platelet Estimate Slight Decrease; RBC Morphology Normal; Total Cells Counted 100
[2019-07-17 15:32] LABS: Microscopic, Urine URINE MICROSCOPIC (MICROSCOPIC)
[2019-07-17 15:52] LABS: Appearance,Urine CLEAR (Clear); Bilirubin,Urine Negative (Negative); Blood, Urine Negative (Negative); Color,Urine YELLOW (Yellow); Glucose,Urine (UA) Negative (Negative); Ketones,Urine TRACE (Negative); Leukocyte Esterase,Urine Negative (Negative); Nitrate,Urine Negative (Negative); Protein,Urine Negative (Negative); Specific Gravity, Urine 1.025 (1.005-1.030); Urobilinogen,Urine 0.2 EU/dl (0.2)
--- NOTE | 2019-07-17 15:58 | HMH.SLDYSPHA ---
Speech & Language Evaluation Speech/Language Dysphagia Evaluation Start: 07/17/19 15:35 Freq: ONCE Status: Active Protocol: Document 07/17/19 15:35 MALINDA (Rec: 07/17/19 15:58 MALINDA [id number]) Dysphagia Assess/Goals/Plan Assessment Date of Evaluation: 07/17/19 Evaluation Type Initial Certification Assessment/Problems Dysphagia Does Patient Qualify for Service No Qualify/Failure Comment At this time, Ms. Mccoy is not a candidate for therapy. As her illness improves, she will be reassessed for possible diet upgrade Recommendations PHYSICIAN CERTIFICATION: The specified therapy services are required, authorized, and reviewed every 30 days. Diet Recommendations Mechanical Soft Liquid Type Recommendations [place] Consistency Crush Meds Crush all meds Dysphagia Swallow Precautions/Strategies Sitting Upright (90 deg) Plan Pt/Guardian verbally ack understanding Yes: ORGANIZATIONAL DEVELOPMENT CONSULTANT notified of of dx/prognosis/goals recommendations G -code Required No Speech & Language HPI Language Primary Language Nigerian General Information General Current Food Consistancy Regular,Chopped Meats,Thin Liquids Dentition Lower Only Oxygen Status Nasal Cannula Facial Symmetry Symmetrical Patient Orientation Person Ability to Follow Directions Fair Dysphagia:Food Presentation Evaluation Food Type Pureed,Mechanical Soft,Liquid, Pudding Normal/Thin Liquid Response Coughing after swallow,Clears throat Dysphagia Evaluation Summary Ms. Mccoy was given the following consistencies: thins via straw and open cup, nectar via straw and open cup, pudding, pureed, and mechanical soft. It was noted during evaluation, Ms. Mccoy talked excessively while she had food in her mouth and quickly after her swallow. She required cues to swallow first before she spoke. She did exhibit coughing with thin liquids. It is recommended that she be placed on Mechanical Soft diet with ground meats with sauce and nectar thick liquids. ST will
[2019-07-17 16:55] LABS: Bacteria,Urine Trace /lpf; RBC,Urine Occasional #/hpf (0-3)
--- NOTE | 2019-07-17 17:18 | PC.NURSE ---
SPEECH CAME TO EVALUATE PT AND CHANGED DIET TO MECHANICAL SOFT WITH CHOPPED MEATS. NECTAR THICK LIQUIDS FOR NOW.
[2019-07-18] VITALS (9 sets, daily range): BP systolic 129–148; BP diastolic 71–94; PULSE 71–87; RESP 19–26; TEMP 36.1–37.8; O2SAT 86–92; BMI 39.2
--- NOTE | 2019-07-18 06:25 | PC.NURSE ---
Pt's O2 sat decreased to 86% on 4L NC. Despite turning pt, cough, deep breathing , and administration of Combivent, pt sat went up to 88% then back down to 87%. Consulted with RT Jana and pt's O2 increased to 5L per NC. after several minutes at % L pts sat increased to 91%. Will continue to monitor.
--- NOTE | 2019-07-18 06:28 | PC.NURSE ---
All care provided by JUDD Leija was supervised by Britney Alicea RN. Pt is in Airborne & Contact precautions with eye protection and all staff has maintained proper PPE t/o shift.
[2019-07-18 06:49] LABS: Basophils # 0.1 K/mm3 (0-0.2); Basophils % 0.9 % (0.1-2.0); Eosinophils % 0.3 % (0.1-12.0); Hematocrit 29.5 % (37.0-47.0); Hemoglobin 9.7 g/dL (12.2-16.2); Lymphocytes # 0.8 K/mm3 (0.7-4.5); Lymphocytes % 13.2 % (10-50); Mean Corpuscular Hemoglobin 27.9 pg (27.0-31.2); Mean Corpuscular Volume 84.8 fl (81-99); Mean Platelet Volume 8.6 fl (7.4-10.4); Monocytes # 0.3 K/mm3 (0.1-1.0); Monocytes % 4.5 % (1.7-9.3); Neutrophils # 4.7 K/mm3 (1.8-7.8); Neutrophils % 81.1 % (37.0-80.0); Platelet Count 131 K/mm3 (142-424); Red Blood Count 3.48 M/mm3 (4.20-5.40); Red Cell Distribution Width 14.6 % (11.5-17.5); White Blood Count 5.8 K/mm3 (4.8-10.8)
[2019-07-18 06:57] LABS: Anion Gap 9.9 mEq/L (5-15); Blood Urea Nitrogen 22 mg/dl (7-17); Calcium 8.8 mg/dl (8.4-10.2); Carbon Dioxide 32 mmol/L (22.0-30.0); Chloride 100 mmol/L (98-107); Creatinine Clearance Estimated 71 mL/min (50-200); Estimated Glomerular Filt Rate 55 ml/min (>60); GFR (African American) 66 ML/MIN (>60); Glucose 87 mg/dl (74-100); Potassium 3.9 mmoL/L (3.5-5.1); Sodium 138 mmol/L (136-145)
--- NOTE | 2019-07-18 08:25 | PC.NURSE ---
verified with pharmacy about meds that could be crushed. only meds at this time that can't be are the atorvastatin and fenofibrate
--- NOTE | 2019-07-18 08:53 | HMH.ACPN2 ---
Internal Medicine - PN: Subj *Date: 07/18/19 *Time: 08:53 Interval history: Patient sitting up in bed eating breakfast Exam Vital signs and Labs for Last 24 Hours: Temp Pulse Resp BP Pulse Ox 97.0 F L 82 19 148/85 H 88 L 07/18/19 08:00 07/18/19 08:00 07/18/19 08:00 07/18/19 08:00 07/18/19 08:00 Laboratory Results - last 24 hr 07/17/19 04:50: Total Counted 100, Neutrophils % (Manual) 73, Band Neutrophils % 6.0, Lymphocytes % (Manual) 11, Monocytes % (Manual) 6, Metamyelocytes % 4.0 H, Platelet Estimate Slight decrease, RBC Morphology Normal 07/17/19 15:15: Urine Color Yellow, Urine Appearance Clear, Urine pH 6.0, Ur Specific [place] 1.025, Urine Protein Negative, Urine Glucose (UA) Negative, Urine Ketones Trace, Urine Blood Negative, Urine Nitrate Negative, Urine Bilirubin Negative, Urine Urobilinogen 0.2, Ur Leukocyte Esterase Negative, Urine RBC Occasional, Urine WBC 5-10, Ur Squamous Epith Cells 3-5, Urine Bacteria Trace 07/18/19 05:48: WBC 5.8, RBC 3.48 L, Hgb 9.7 L, Hct 29.5 L, MCV 84.8, MCH 27.9, MCHC 33.0, RDW 14.6, Plt Count 131 L, MPV 8.6, Neut % (Auto) 81.1 H, Lymph % (Auto) 13.2, [place] % (Auto) 4.5, Eos % (Auto) 0.3, Baso % (Auto) 0.9, Neut # (Auto) 4.7, Lymph # (Auto) 0.8, [place] # (Auto) 0.3, Eos # (Auto) 0.0, Baso # (Auto) 0.1 07/18/19 05:48: Sodium 138, Potassium 3.9, Chloride 100, Carbon Dioxide 32 H, Anion Gap 9.9, BUN 22 H, Creatinine 1.00, Estimated Creat Clear 71, Estimated GFR 55 L, Est GFR ( Amer) 66, Glucose 87, Calcium 8.8 I & O for Last 24 hours: Intake & Output 07/15/19 07/16/19 07/17/1928/20 11:59 11:59 11:59 11:59 Intake Total 600 / 600 400 / 400 Balance 600 / 600 400 / 400 Weight 200 lb 8 oz 198 lb 194 lb 11.2 oz - Constitutional no acute distress, obese, chronically ill appearing - *Routine HEENT Exam Head: Present: normocephalic Eye: Present: PERRL ENT: Present: mucous membranes moist - *Routine Neck Exam Present: supple. Absent: lymphadenopathy - *Routine Respiratory Exam Present: decreased breath sounds, CTA bilaterally - *Routine Cardiovascular Exam Present: RRR - *Routine Abdominal Exam Present: soft, normoactive bowel sounds. Absent: tenderness - *Routine Extremities Exam Present: normal capillary refill. Absent: cyanosis, clubbing, edema - *Routine Skin Exam Present: warm. Absent: rash Comments: Redness under skin folds - *Routine Neurological Exam Present: alert, oriented X3 - Routine Psychiatric Exam Present: normal affect Assessment and Plan (1) HTN (hypertension) Current visit: No Status: Acute Qualifiers: Hypertension type: essential hypertension Qualified Code(s): I10 - Essential (primary) hypertension Category: Medical Code(s): I10 - Essential (primary) hypertension (2) Obesity (BMI 30-39.9) Current visit: Yes Status: Acute Category: Medical Code(s): E66.9 - Obesity, unspecified (3) Hyperlipidemia Current visit: No Status: Acute Qualifiers: Hyperlipidemia type: unspecified Qualified Code(s): E78.5 - Hyperlipidemia, unspecified Category: Medical Code(s): E78.5 - Hyperlipidemia, unspecified (4) Contusion of hip, left Current visit: Yes Status: Acute Qualifiers: Encounter type: initial encounter Qualified Code(s): S70.02XA - Contusion of left hip, initial encounter Category: Medical Code(s): S70.02XA - Contusion of left hip, initial encounter (5) COVID-19 virus infection Current visit: Yes Status: Acute Category: Medical Code(s): U07.1 - COVID-19 (6) Renal insufficiency Current visit: No Status: Resolved Category: Medical Code(s): N28.9 - Disorder of kidney and ureter, unspecified (7) Anemia Current visit: Yes Status: Acute Qualifiers: Anemia type: unspecified type Qualified Code(s): D64.9 - Anemia, unspecified Category: Medical Code(s): D64.9 - Anemia, unspecified - Assessment and plan all Dx Assessment and
--- NOTE | 2019-07-18 09:27 | CT_ITS ---
PROCEDURE: CT CHEST WO CON CLINICAL INDICATION: pnemonia COMPARISON: ABDPELW CT ABD PELVIS W/ CONTRAST from 12/27/[address] abdomen pelvis w con from 03/23/2017 XR CHEST PORTABLE from 07/17/2019 TECHNIQUE: Axial images obtained with sagittal and coronal reformats. All CT scans at the facility use one or more dose reduction, viz: automated exposure control, ma/kV adjustment per patient size (including targeted exams where dose is matched to indication, i.e. head), or iterative reconstruction technique. FINDINGS: There are scattered small mediastinal lymph nodes. There is mild cardiomegaly. The isthmus of the thyroid gland shows nodular enlargement at 18 mm and there is hypodense nodule in the right lobe of the thyroid gland at 1 cm. Ground-glass infiltrates are present in both upper lobes along with more dense area of consolidation in the posterior segment of the right upper lobe. Consolidation with volume loss is present in the right middle lobe is well also with some ground-glass of opacification. There is small right pleural effusion with atelectatic change or consolidation in the right lung base posteriorly. There is some patchy ground-glass densities in the left upper lobe. There is suggestion of some a mild crazy paving pattern in the upper lobes. There is trace left-sided effusion. There is a hypodensity in the hepatic dome which may be due to a cyst at 1.4 cm. Ventral abdominal wall hernia is present containing a loop of small bowel. There has been a prior left-sided nephrectomy IMPRESSION: 1. Bilateral pneumonia in the right upper lobe, right middle lobe, and left upper lobe. There are some features which can be seen with COVID 19 which include ground-glass opacities and crazy paving pattern. There is also some more dense consolidation in the right upper lobe and right middle lobe along with trace bilateral effusions. Other types of pneumonia also a consideration. The 2. 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
--- NOTE | 2019-07-18 12:39 | SW/DCPLANNER ---
Echo from [facility] has stated today to please contact [facility] once patient is medically stable for discharge for re-evaluation. Echo stated that if appropriate [facility] will accept back at time of discharge.
--- NOTE | 2019-07-18 13:59 | PC.NURSE ---
patient remdesivir medication finished and flushed with 30ml of NS
--- NOTE | 2019-07-18 15:53 | PC.NURSE ---
patient has been laying in bed this shift. able to move self in bed. has frequently removed o2 causing sats to drop in the low 70s. at times is alert and oriented but has moments of confusion and anxiety. yelled at staff about a bomb in room stated we only wanted o2 to stay on so she was trapped here. educated patient and redirected her about need for o2. patient o2 is at 5l and sats range from 86-90%. some wheezing and crackles noted in lungs. has been incontinent of stool and urine. has ran a low grade fever and given tylenol as needed. breathing about 2-24 a minute. has coughed up some mucus but would not give sample at this time. will continue to monitor. getting inhaler q4hrs. vitals stable.
[2019-07-19] VITALS (11 sets, daily range): BP systolic 112–167; BP diastolic 65–93; PULSE 62–81; RESP 12–24; TEMP 36.3–38.7; O2SAT 87–94; BMI 39.1
--- NOTE | 2019-07-19 00:39 | PC.NURSE ---
DESAT 5L NC TO 82%; INCREASED TO 7.5L NC WITH O2 SAT 86-88%; ENCOURAGED PT. TO DEEP BREATH, COUGH; REPOSITIONED PT. AND ADMINISTERED COMBIVENT AND TYLENOL FOR FEVER (101.6 AXILLARY). 0020-NOTIFIED MD ANA. NEW ORDERS: PLACE ON 50% VENTI MASK AND WEAN TO KEEP O2 SAT ABOVE 88%; ADMINISTER IBUPROFEN 600MG PO X1 FOR REFRACTORY FEVER IF LAST TYLENOL DOSE IS NOT EFFECTIVE. 0026- PT. PLACED ON 50% VENTI WITH O2 SAT 92-94% 0030- TITRATED TO 40% VENTI WITH O2 SAT 90-92%
[2019-07-19 05:54] LABS: Anion Gap 8.7 mEq/L (5-15); Blood Urea Nitrogen 24 mg/dl (7-17); Calcium 8.5 mg/dl (8.4-10.2); Carbon Dioxide 31 mmol/L (22.0-30.0); Chloride 100 mmol/L (98-107); Creatinine Clearance Estimated 71 mL/min (50-200); Estimated Glomerular Filt Rate 55 ml/min (>60); GFR (African American) 66 ML/MIN (>60); Glucose 92 mg/dl (74-100); Potassium 3.7 mmoL/L (3.5-5.1); Sodium 136 mmol/L (136-145)
[2019-07-19 06:18] LABS: Basophils # 0.1 K/mm3 (0-0.2); Basophils % 0.8 % (0.1-2.0); Eosinophils % 0.2 % (0.1-12.0); Hematocrit 27.1 % (37.0-47.0); Hemoglobin 9.1 g/dL (12.2-16.2); Lymphocytes # 0.6 K/mm3 (0.7-4.5); Lymphocytes % 8.1 % (10-50); Mean Corpuscular HGB Conc 33.5 g/dL (31.8-35.4); Mean Corpuscular Hemoglobin 27.7 pg (27.0-31.2); Mean Corpuscular Volume 82.6 fl (81-99); Mean Platelet Volume 8.9 fl (7.4-10.4); Monocytes # 0.4 K/mm3 (0.1-1.0); Neutrophils # 6.3 K/mm3 (1.8-7.8); Neutrophils % 85.9 % (37.0-80.0); Platelet Count 147 K/mm3 (142-424); Red Blood Count 3.28 M/mm3 (4.20-5.40); Red Cell Distribution Width 14.6 % (11.5-17.5); White Blood Count 7.3 K/mm3 (4.8-10.8)
[2019-07-19 06:51] LABS: MANUAL DIFFERENTIAL MANUAL DIFFERENTIAL (MANUAL DIFF)
[2019-07-19 08:54] LABS: Lymphocytes % 9 % (10-50); Monocytes % 1 % (2-9); Neutrophils % 88 % (42-76); Platelet Estimate Normal; RBC Morphology Normal; Total Cells Counted 100
--- NOTE | 2019-07-19 08:56 | HMH.ACPN2 ---
Internal Medicine - PN: Subj *Date: 07/19/19 *Time: 08:15 Interval history: Patient laying in bed states she feels better today Exam Vital signs and Labs for Last 24 Hours: Temp Pulse Resp BP Pulse Ox 98.4 F 73 19 141/79 H 91 L 07/19/19 04:00 07/19/19 04:00 07/19/19 04:00 07/19/19 04:00 07/19/19 04:00 Laboratory Results - last 24 hr 07/19/19 05:02: WBC 7.3 D, RBC 3.28 L, Hgb 9.1 L, Hct 27.1 L, MCV 82.6, MCH 27.7, MCHC 33.5, RDW 14.6, Plt Count 147, MPV 8.9, Neut % (Auto) 85.9 H, Lymph % (Auto) 8.1 L, [place] % (Auto) 5.0, Eos % (Auto) 0.2, Baso % (Auto) 0.8, Neut # (Auto) 6.3, Lymph # (Auto) 0.6 L, [place] # (Auto) 0.4, Eos # (Auto) 0.0, Baso # (Auto) 0.1, Total Counted 100, Neutrophils % (Manual) 88 H, Band Neutrophils % 2.0, Lymphocytes % (Manual) 9 L, Monocytes % (Manual) 1 L, Platelet Estimate Normal, RBC Morphology Normal 07/19/19 05:02: Sodium 136, Potassium 3.7, Chloride 100, Carbon Dioxide 31 H, Anion Gap 8.7, BUN 24 H, Creatinine 1.00, Estimated Creat Clear 71, Estimated GFR 55 L, Est GFR ( Amer) 66, Glucose 92, Calcium 8.5 I & O for Last 24 hours: Intake & Output 07/16/19 07/17/19 07/18/19 07/19/19 11:59 11:59 11:59 11:59 Intake Total 600 / 600 400 / 400 970 / 970 Balance 600 / 600 400 / 400 970 / 970 Weight 200 lb 8 oz 198 lb 194 lb 11.2 oz 194 lb 0.108 oz - Constitutional no acute distress - *Routine HEENT Exam Head: Present: normocephalic Eye: Present: PERRL ENT: Present: mucous membranes moist - *Routine Neck Exam Present: supple. Absent: lymphadenopathy - *Routine Respiratory Exam Present: rhonchi, wheezes - *Routine Cardiovascular Exam Present: RRR - *Routine Abdominal Exam Present: soft, normoactive bowel sounds. Absent: tenderness - *Routine Extremities Exam Present: normal capillary refill. Absent: cyanosis, clubbing, edema - *Routine Skin Exam Present: warm. Absent: rash - *Routine Neurological Exam Present: alert, oriented X3 - Routine Psychiatric Exam Present: normal affect Assessment and Plan (1) HTN (hypertension) Current visit: No Status: Acute Qualifiers: Hypertension type: essential hypertension Qualified Code(s): I10 - Essential (primary) hypertension Category: Medical Code(s): I10 - Essential (primary) hypertension (2) Obesity (BMI 30-39.9) Current visit: Yes Status: Acute Category: Medical Code(s): E66.9 - Obesity, unspecified (3) Hyperlipidemia Current visit: No Status: Acute Qualifiers: Hyperlipidemia type: unspecified Qualified Code(s): E78.5 - Hyperlipidemia, unspecified Category: Medical Code(s): E78.5 - Hyperlipidemia, unspecified (4) Contusion of hip, left Current visit: Yes Status: Acute Qualifiers: Encounter type: initial encounter Qualified Code(s): S70.02XA - Contusion of left hip, initial encounter Category: Medical Code(s): S70.02XA - Contusion of left hip, initial encounter (5) COVID-19 virus infection Current visit: Yes Status: Acute Category: Medical Code(s): U07.1 - COVID-19 (6) Renal insufficiency Current visit: No Status: Resolved Category: Medical Code(s): N28.9 - Disorder of kidney and ureter, unspecified (7) Anemia Current visit: Yes Status: Acute Qualifiers: Anemia type: unspecified type Qualified Code(s): D64.9 - Anemia, unspecified Category: Medical Code(s): D64.9 - Anemia, unspecified (8) Aspiration pneumonia Current visit: Yes Status: Acute Qualifiers: Aspiration pneumonia type: unspecified Laterality: right Lung location: unspecified part of lung Qualified Code(s): J69.0 - Pneumonitis due to inhalation of food and vomit Category: Medical Code(s): J69.0 - Pneumonitis due to inhalation of food and vomit (9) Psychosis Current visit: No Status: Acute Qualifiers: Psychosis type: unspecified psychosis type Qualified Code(s): 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
--- NOTE | 2019-07-19 12:19 | PC.NURSE ---
PATIENT ENCOURAGED TO GET OUT OF BED INTO CHAIR FOR LUNCH. SHE STATES SHE DOES NOT WANT TO GET OUT OF BED AT THIS TIME. SHE DID LET ME SIT HER UP FOR LUNCH IN THE BED.
--- NOTE | 2019-07-19 18:44 | PC.NURSE ---
PATIENT IS RESTING IN BED WITH EYES CLOSED AT THIS TIME. SHE HAS REFUSED TO AMBULATE OR GET UP OUT OF BED THIS SHIFT HOWEVER SHE DID AGREE TO A BED BATH AND LINEN CHANGE. PATIENT HAS COMPLAINED THIS SHIFT ABOUT SOME KNEE JOINT DISCOMFORT WHEN MOVING ONLY. O2 SATS HAVE FLUCTUATED BETWEEN 88-91 ON 4 LITERS. CALL LIGHT WITHIN REACH WILL CONTINUE TO MONITOR
--- NOTE | 2019-07-19 23:20 | PC.NURSE ---
2200 patiento2 sats 87-88% on 4 l nc, patient bed changed per incontinent episode, o2 sats dropped to 72%. nc placed in mouth while additional o2 meter obtained, o2 returned to 89%.when o2 placed back nasally sats dropped back down to 77%. venturi mask placed on 50%. o2 sats returned and sustained 91-93%. patient appears worn out. continue to monitor.
[2019-07-20] VITALS (8 sets, daily range): BP systolic 139–168; BP diastolic 79–82; PULSE 78–82; RESP 16–24; TEMP 36.7–37.4; O2SAT 90–92; BMI 39.5
--- NOTE | 2019-07-20 02:22 | PC.NURSE ---
patient resting now, sats maintaining 92-93% on 50% venti mask. will continue to monitor.
--- NOTE | 2019-07-20 05:29 | PC.NURSE ---
attempted to place patient back on nasal canula this morning, patient immediately dropped to 86% satuations on 4l. patient placed back on 40% venti mask, sats sustain 90-92%.
[2019-07-20 05:39] LABS: Basophils # 0.2 K/mm3 (0-0.2); Eosinophils % 0.4 % (0.1-12.0); Hemoglobin 9.8 g/dL (12.2-16.2); Lymphocytes # 0.4 K/mm3 (0.7-4.5); Lymphocytes % 5.6 % (10-50); Mean Corpuscular Hemoglobin 27.9 pg (27.0-31.2); Mean Corpuscular Volume 84.4 fl (81-99); Mean Platelet Volume 8.6 fl (7.4-10.4); Monocytes # 0.4 K/mm3 (0.1-1.0); Monocytes % 5.6 % (1.7-9.3); Neutrophils # 6.6 K/mm3 (1.8-7.8); Neutrophils % 85.4 % (37.0-80.0); Platelet Count 179 K/mm3 (142-424); Red Blood Count 3.52 M/mm3 (4.20-5.40); Red Cell Distribution Width 14.6 % (11.5-17.5); White Blood Count 7.7 K/mm3 (4.8-10.8)
[2019-07-20 05:44] LABS: Hematocrit 29.7 % (37.0-47.0)
[2019-07-20 05:46] LABS: MANUAL DIFFERENTIAL MANUAL DIFFERENTIAL (MANUAL DIFF)
[2019-07-20 05:50] LABS: Anion Gap 13.8 mEq/L (5-15); Blood Urea Nitrogen 24 mg/dl (7-17); Calcium 8.6 mg/dl (8.4-10.2); Carbon Dioxide 28 mmol/L (22.0-30.0); Chloride 101 mmol/L (98-107); Creatinine Clearance Estimated 71 mL/min (50-200); Estimated Glomerular Filt Rate 55 ml/min (>60); GFR (African American) 66 ML/MIN (>60); Potassium 3.8 mmoL/L (3.5-5.1); Sodium 139 mmol/L (136-145)
[2019-07-20 05:59] LABS: Glucose 73 mg/dl (74-100)
--- NOTE | 2019-07-20 06:16 | PC.NURSE ---
patients o2 sats dropped back down into the high 70s on 40% venti mask with am care. venti mask increased to 50 %, sats returned back up into the high 80s and low 90s. will continue to monitor.
[2019-07-20 08:55] LABS: Acanthocytes 1+; Hypochromasia 1+; Lymphocytes % 15 % (10-50); Monocytes % 2 % (2-9); Myelocytes % 1 (0-1); Neutrophils % 80 % (42-76); Platelet Estimate Normal; Poikilocytosis 1+; Stomatocytes 1+; Total Cells Counted 100
--- NOTE | 2019-07-20 09:10 | HMH.ACPN2 ---
Internal Medicine - PN: Subj *Date: 07/22/19 *Time: 08:53 Interval history: pt with low sat at night - better this am - still requiring o2 Exam Vital signs and Labs for Last 24 Hours: Temp Pulse Resp BP Pulse Ox 99.2 F 80 20 149/82 H 90 L 07/20/19 08:00 07/20/19 08:00 07/20/19 08:00 07/20/19 08:00 07/20/19 08:00 Laboratory Results - last 24 hr 07/20/19 04:40: WBC 7.7, RBC 3.52 L, Hgb 9.8 L, Hct 29.7 L, MCV 84.4, MCH 27.9, MCHC 33.0, RDW 14.6, Plt Count 179, MPV 8.6, Neut % (Auto) 85.4 H, Lymph % (Auto) 5.6 L, [place] % (Auto) 5.6, Eos % (Auto) 0.4, Baso % (Auto) 3.0 H, Neut # (Auto) 6.6, Lymph # (Auto) 0.4 L, [place] # (Auto) 0.4, Eos # (Auto) 0.0, Baso # (Auto) 0.2, Total Counted 100, Neutrophils % (Manual) 80 H, Band Neutrophils % 1.0, Lymphocytes % (Manual) 15, Monocytes % (Manual) 2, Metamyelocytes % 1.0, Myelocytes % 1, Platelet Estimate Normal, Hypochromasia 1+, Poikilocytosis 1+, Stomatocytes 1+, Acanthocytes (Spur) 1+ 07/20/19 04:40: Sodium 139, Potassium 3.8, Chloride 101, Carbon Dioxide 28, Anion Gap 13.8, BUN 24 H, Creatinine 1.00, Estimated Creat Clear 71, Estimated GFR 55 L, Est GFR ( Amer) 66, Glucose 73 L D, Calcium 8.6 I & O for Last 24 hours: Intake & Output 07/17/19 07/18/19 07/19/19 07/20/19 11:59 11:59 11:59 11:59 Intake Total 600 / 600 400 / 400 970 / 970 830 / 830 Output Total Balance 600 / 600 400 / 400 970 / 970 829 / 829 Weight 198 lb 194 lb 11.2 oz 194 lb 0.108 oz 196 lb 3.382 oz - Constitutional no acute distress, obese - *Routine HEENT Exam Head: Present: normocephalic Eye: Present: EOMI, PERRL ENT: Present: mucous membranes dry - *Routine Neck Exam Present: supple. Absent: JVD - *Routine Respiratory Exam Present: decreased breath sounds - *Routine Cardiovascular Exam Present: RRR, murmur - *Routine Abdominal Exam Present: soft - *Routine Extremities Exam Absent: calf tenderness - *Routine Skin Exam Present: intact - *Routine Neurological Exam Present: alert, oriented X3, CN II-XII intact - Routine Psychiatric Exam Present: normal affect Assessment and Plan (1) HTN (hypertension) Current visit: No Status: Acute Qualifiers: Hypertension type: essential hypertension Qualified Code(s): I10 - Essential (primary) hypertension Category: Medical Code(s): I10 - Essential (primary) hypertension (2) Obesity (BMI 30-39.9) Current visit: Yes Status: Acute Category: Medical Code(s): E66.9 - Obesity, unspecified (3) Hyperlipidemia Current visit: No Status: Acute Qualifiers: Hyperlipidemia type: unspecified Qualified Code(s): E78.5 - Hyperlipidemia, unspecified Category: Medical Code(s): E78.5 - Hyperlipidemia, unspecified (4) Contusion of hip, left Current visit: Yes Status: Acute Qualifiers: Encounter type: initial encounter Qualified Code(s): S70.02XA - Contusion of left hip, initial encounter Category: Medical Code(s): S70.02XA - Contusion of left hip, initial encounter (5) COVID-19 virus infection Current visit: Yes Status: Acute Category: Medical Code(s): U07.1 - COVID-19 (6) Renal insufficiency Current visit: No Status: Resolved Category: Medical Code(s): N28.9 - Disorder of kidney and ureter, unspecified (7) Anemia Current visit: Yes Status: Acute Qualifiers: Anemia type: unspecified type Qualified Code(s): D64.9 - Anemia, unspecified Category: Medical Code(s): D64.9 - Anemia, unspecified (8) Aspiration pneumonia Current visit: Yes Status: Acute Qualifiers: Aspiration pneumonia type: unspecified Laterality: right Lung location: unspecified part of lung Qualified Code(s): J69.0 - Pneumonitis due to inhalation of food and vomit Category: Medical Code(s): J69.0 - Pneumonitis due to inhalation of food and vomit (9) Psychosis Current visit: No Status: Acute Qualifiers: Psychosis type: unspecified psyc
--- NOTE | 2019-07-20 17:32 | PC.NURSE ---
No acute changes noted this shift, pt has remained on 4LNC this shift with o2 saturations 88-92%, has denied any SOA or difficulty breathing, pt has been incontinent of bowel and bladder this shift, has had a large loose BM this shift, partial bed bath given as patient refused full bath, pt has remained afebrile this shift, appetite fair, alert and oriented x2, perrla, pupils 3+, trace edema noted to BLE, no s/s of distress noted, vss, will continue to monitor for changes.
[2019-07-21] VITALS (7 sets, daily range): BP systolic 135–159; BP diastolic 65–84; PULSE 74–81; RESP 16–24; TEMP 36.7–37.4; O2SAT 85–93; BMI 38.9
--- NOTE | 2019-07-21 02:38 | PC.NURSE ---
Pt alert to self and place, makes needs known, slightly difficult to understand occasionally. Vital signs stable, 024LNC remains in place with pt sating within parameters on checks. ABX infused well with no problems, IV remains pink and patent. Pt incontinent of bowel and urine. Presently sleeping, monitoring continues.
[2019-07-21 07:25] LABS: Basophils # 0.1 K/mm3 (0-0.2); Basophils % 1.7 % (0.1-2.0); Eosinophils % 0.5 % (0.1-12.0); Hematocrit 31.1 % (37.0-47.0); Hemoglobin 10.3 g/dL (12.2-16.2); Lymphocytes # 0.7 K/mm3 (0.7-4.5); Lymphocytes % 9.2 % (10-50); Mean Corpuscular HGB Conc 33.2 g/dL (31.8-35.4); Mean Corpuscular Hemoglobin 28.1 pg (27.0-31.2); Mean Corpuscular Volume 84.9 fl (81-99); Mean Platelet Volume 8.7 fl (7.4-10.4); Monocytes # 0.7 K/mm3 (0.1-1.0); Monocytes % 8.6 % (1.7-9.3); Neutrophils # 6.1 K/mm3 (1.8-7.8); Neutrophils % 80.1 % (37.0-80.0); Platelet Count 212 K/mm3 (142-424); Red Blood Count 3.67 M/mm3 (4.20-5.40); Red Cell Distribution Width 14.7 % (11.5-17.5); White Blood Count 7.7 K/mm3 (4.8-10.8)
[2019-07-21 07:36] LABS: Chloride 103 mmol/L (98-107); Potassium 3.5 mmoL/L (3.5-5.1); Sodium 138 mmol/L (136-145)
[2019-07-21 07:39] LABS: Blood Urea Nitrogen 22 mg/dl (7-17); Creatinine Clearance Estimated 70 mL/min (50-200); Estimated Glomerular Filt Rate 62 ml/min (>60); GFR (African American) 74 ML/MIN (>60)
[2019-07-21 07:40] LABS: Anion Gap 7.5 mEq/L (5-15); Calcium 8.6 mg/dl (8.4-10.2); Carbon Dioxide 31 mmol/L (22.0-30.0); Glucose 79 mg/dl (74-100)
--- NOTE | 2019-07-21 08:53 | HMH.ACPN ---
Internal Medicine - PN: Subj *Date: 07/21/19 *Time: 08:53 Exam Vital signs and Labs for Last 24 Hours: Temp Pulse Resp BP Pulse Ox 98.0 F 74 22 136/81 85 L 07/21/19 04:00 07/21/19 04:00 07/21/19 04:00 07/21/19 04:00 07/21/19 04:10 Laboratory Results - last 24 hr 07/20/19 04:40: Total Counted 100, Neutrophils % (Manual) 80 H, Band Neutrophils % 1.0, Lymphocytes % (Manual) 15, Monocytes % (Manual) 2, Metamyelocytes % 1.0, Myelocytes % 1, Platelet Estimate Normal, Hypochromasia 1+, Poikilocytosis 1+, Stomatocytes 1+, Acanthocytes (Spur) 1+ 07/21/19 05:30: WBC 7.7, RBC 3.67 L, Hgb 10.3 L, Hct 31.1 L, MCV 84.9, MCH 28.1, MCHC 33.2, RDW 14.7, Plt Count 212, MPV 8.7, Neut % (Auto) 80.1 H, Lymph % (Auto) 9.2 L, [place] % (Auto) 8.6, Eos % (Auto) 0.5, Baso % (Auto) 1.7, Neut # (Auto) 6.1, Lymph # (Auto) 0.7, [place] # (Auto) 0.7, Eos # (Auto) 0.0, Baso # (Auto) 0.1 07/21/19 05:30: Sodium 138, Potassium 3.5, Chloride 103, Carbon Dioxide 31 H, Anion Gap 7.5, BUN 22 H, Creatinine 0.90, Estimated Creat Clear 70, Estimated GFR 62, Est GFR ( Amer) 74, Glucose 79, Calcium 8.6 I & O for Last 24 hours: Intake & Output 07/18/19 07/19/19 07/20/19 07/21/19 23:59 23:59 23:59 23:59 Intake Total 970 / 970 880 / 880 1180 / 1180 350 / 350 Output Total Balance 970 / 970 880 / 879 1179 / 1179 350 / 350 Weight 88.314 kg 88 kg 89 kg 87.742 kg Assessment and Plan (1) HTN (hypertension) Current visit: No Status: Acute Qualifiers: Hypertension type: essential hypertension Qualified Code(s): I10 - Essential (primary) hypertension Category: Medical Code(s): I10 - Essential (primary) hypertension (2) Obesity (BMI 30-39.9) Current visit: Yes Status: Acute Category: Medical Code(s): E66.9 - Obesity, unspecified (3) Hyperlipidemia Current visit: No Status: Acute Qualifiers: Hyperlipidemia type: unspecified Qualified Code(s): E78.5 - Hyperlipidemia, unspecified Category: Medical Code(s): E78.5 - Hyperlipidemia, unspecified (4) Contusion of hip, left Current visit: Yes Status: Acute Qualifiers: Encounter type: initial encounter Qualified Code(s): S70.02XA - Contusion of left hip, initial encounter Category: Medical Code(s): S70.02XA - Contusion of left hip, initial encounter (5) COVID-19 virus infection Current visit: Yes Status: Acute Category: Medical Code(s): U07.1 - COVID-19 (6) Renal insufficiency Current visit: No Status: Resolved Category: Medical Code(s): N28.9 - Disorder of kidney and ureter, unspecified (7) Anemia Current visit: Yes Status: Acute Qualifiers: Anemia type: unspecified type Qualified Code(s): D64.9 - Anemia, unspecified Category: Medical Code(s): D64.9 - Anemia, unspecified (8) Aspiration pneumonia Current visit: Yes Status: Acute Qualifiers: Aspiration pneumonia type: unspecified Laterality: right Lung location: unspecified part of lung Qualified Code(s): J69.0 - Pneumonitis due to inhalation of food and vomit Category: Medical Code(s): J69.0 - Pneumonitis due to inhalation of food and vomit (9) Psychosis Current visit: No Status: Acute Qualifiers: Psychosis type: unspecified psychosis type Qualified Code(s): 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stance or known physiological condition Category: Medical Code(s): 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stance or known physiological condition The patient's infection will respond to the chosen ABx?: Yes Is the patient receiving the right drug, dose, and route?: Yes Could a more targeted ABx be ordered?: No
--- NOTE | 2019-07-21 15:25 | PC.NURSE ---
WAS INFORMED BY STAFF ON ROUNDS THAT PATIENT IS HAVING MULTIPLE LOOSE STOOLS THIS SHIFT. DIARRHEA PANEL ORDERED AT THIS TIME.
--- NOTE | 2019-07-21 16:11 | HMH.ACPN2 ---
Internal Medicine - PN: Subj *Date: 07/22/19 *Time: 09:00 Interval history: doing better - more alert - urged pt to get oob and in chair Exam Vital signs and Labs for Last 24 Hours: Temp Pulse Resp BP Pulse Ox 98.5 F 81 16 153/83 H 93 L 07/21/19 12:00 07/21/19 12:00 07/21/19 12:00 07/21/19 12:00 07/21/19 12:00 Laboratory Results - last 24 hr 07/21/19 05:30: WBC 7.7, RBC 3.67 L, Hgb 10.3 L, Hct 31.1 L, MCV 84.9, MCH 28.1, MCHC 33.2, RDW 14.7, Plt Count 212, MPV 8.7, Neut % (Auto) 80.1 H, Lymph % (Auto) 9.2 L, [place] % (Auto) 8.6, Eos % (Auto) 0.5, Baso % (Auto) 1.7, Neut # (Auto) 6.1, Lymph # (Auto) 0.7, [place] # (Auto) 0.7, Eos # (Auto) 0.0, Baso # (Auto) 0.1 07/21/19 05:30: Sodium 138, Potassium 3.5, Chloride 103, Carbon Dioxide 31 H, Anion Gap 7.5, BUN 22 H, Creatinine 0.90, Estimated Creat Clear 70, Estimated GFR 62, Est GFR ( Amer) 74, Glucose 79, Calcium 8.6 I & O for Last 24 hours: Intake & Output 07/19/19 07/20/19 07/21/19 07/22/19 11:59 11:59 11:59 11:59 Intake Total 1120 / 1120 1100 / 1100 1160 / 1160 Output Total Balance 1120 / 1120 1099 / 1099 1160 / 1160 Weight 194 lb 0.108 oz 196 lb 3.382 oz 193 lb 7 oz - Constitutional no acute distress, obese - *Routine HEENT Exam Head: Present: normocephalic Eye: Present: EOMI, PERRL ENT: Present: mucous membranes dry - *Routine Neck Exam Present: supple - *Routine Respiratory Exam Present: decreased breath sounds - *Routine Cardiovascular Exam Present: RRR - *Routine Abdominal Exam Present: soft - *Routine Extremities Exam Absent: calf tenderness - *Routine Skin Exam Present: intact - *Routine Neurological Exam Present: alert, CN II-XII intact - Routine Psychiatric Exam Present: normal affect Assessment and Plan (1) HTN (hypertension) Current visit: No Status: Acute Qualifiers: Hypertension type: essential hypertension Qualified Code(s): I10 - Essential (primary) hypertension Category: Medical Code(s): I10 - Essential (primary) hypertension (2) Obesity (BMI 30-39.9) Current visit: Yes Status: Acute Category: Medical Code(s): E66.9 - Obesity, unspecified (3) Hyperlipidemia Current visit: No Status: Acute Qualifiers: Hyperlipidemia type: unspecified Qualified Code(s): E78.5 - Hyperlipidemia, unspecified Category: Medical Code(s): E78.5 - Hyperlipidemia, unspecified (4) Contusion of hip, left Current visit: Yes Status: Acute Qualifiers: Encounter type: initial encounter Qualified Code(s): S70.02XA - Contusion of left hip, initial encounter Category: Medical Code(s): S70.02XA - Contusion of left hip, initial encounter (5) COVID-19 virus infection Current visit: Yes Status: Acute Category: Medical Code(s): U07.1 - COVID-19 (6) Renal insufficiency Current visit: No Status: Resolved Category: Medical Code(s): N28.9 - Disorder of kidney and ureter, unspecified (7) Anemia Current visit: Yes Status: Acute Qualifiers: Anemia type: unspecified type Qualified Code(s): D64.9 - Anemia, unspecified Category: Medical Code(s): D64.9 - Anemia, unspecified (8) Aspiration pneumonia Current visit: Yes Status: Acute Qualifiers: Aspiration pneumonia type: unspecified Laterality: right Lung location: unspecified part of lung Qualified Code(s): J69.0 - Pneumonitis due to inhalation of food and vomit Category: Medical Code(s): J69.0 - Pneumonitis due to inhalation of food and vomit (9) Psychosis Current visit: No Status: Acute Qualifiers: Psychosis type: unspecified psychosis type Qualified Code(s): 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stance or known physiological condition Category: Medical Code(s): 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stance or known physiological condition
[2019-07-21 18:33] LABS: Adenovirus F 40/41, stool Not Detected (NotDetected); Astrovirus Not Detected (NotDetected); Cryptosporidium Not Detected (NotDetected); Cyclospora Cayetanesis Not Detected (NotDetected); Entamoeba histolytica Not Detected (NotDetected); Giardia lamblia Not Detected (NotDetected); Norovirus Not Detected (NotDetected); Rotavirus A Not Detected (NotDetected); Sapovirus Not Detected (NotDetected); Shiga-like toxin E coli Not Detected (NotDetected); Shigella Enterovasive E coli Not Detected (NotDetected)
[2019-07-21 18:35] LABS: Campylobacter Not Detected (NotDetected); Clostridium Difficile A/B, PCR Not Detected (NotDetected); Enteroaggregative E coli Not Detected (NotDetected); Enteropathogenic E coli Not Detected (NotDetected); Enterotoxigenic E coli Not Detected (NotDetected); Plesimonas Shigalloides, PCR Not Detected (NotDetected); Salmonella, PCR Not Detected (NotDetected); Vibrio Cholerae Not Detected (NotDetected); Vibrio, PCR Not Detected (NotDetected); Yersinia Entercolitica, PCR Not Detected (NotDetected)
[2019-07-22] VITALS (7 sets, daily range): BP systolic 116–153; BP diastolic 72–93; PULSE 68–84; RESP 19–26; TEMP 36.2–37.3; O2SAT 88–93; BMI 38.7
--- NOTE | 2019-07-22 05:00 | PC.NURSE ---
No acute changes. Pt has not had any BM this shift and panel came back negative. Pt c/o BLE being very tender w/ movement. Pt is able to readjust self in bed. No other complaints reported to staff. O2 remains at 4LNC w/ sats in low 90's. [place] in place and was changed this shift. PO intake has been good. Will continue to monitor.
[2019-07-22 05:53] LABS: Basophils # 0.1 K/mm3 (0-0.2); Basophils % 1.7 % (0.1-2.0); Eosinophils # 0.1 K/mm3 (0.0-0.4); Eosinophils % 0.8 % (0.1-12.0); Hemoglobin 10.7 g/dL (12.2-16.2); Lymphocytes # 0.6 K/mm3 (0.7-4.5); Lymphocytes % 7.5 % (10-50); Mean Corpuscular HGB Conc 32.4 g/dL (31.8-35.4); Mean Corpuscular Hemoglobin 27.8 pg (27.0-31.2); Mean Corpuscular Volume 85.9 fl (81-99); Mean Platelet Volume 7.5 fl (7.4-10.4); Monocytes # 0.6 K/mm3 (0.1-1.0); Monocytes % 7.8 % (1.7-9.3); Neutrophils # 6.5 K/mm3 (1.8-7.8); Neutrophils % 82.2 % (37.0-80.0); Platelet Count 230 K/mm3 (142-424); Red Blood Count 3.84 M/mm3 (4.20-5.40); Red Cell Distribution Width 14.9 % (11.5-17.5); White Blood Count 7.9 K/mm3 (4.8-10.8)
[2019-07-22 06:18] LABS: Chloride 106 mmol/L (98-107); Potassium 3.3 mmoL/L (3.5-5.1); Sodium 140 mmol/L (136-145)
[2019-07-22 06:21] LABS: Anion Gap 6.3 mEq/L (5-15); Blood Urea Nitrogen 23 mg/dl (7-17); Calcium 8.9 mg/dl (8.4-10.2); Carbon Dioxide 31 mmol/L (22.0-30.0); Creatinine Clearance Estimated 70 mL/min (50-200); Estimated Glomerular Filt Rate 55 ml/min (>60); GFR (African American) 66 ML/MIN (>60); Glucose 93 mg/dl (74-100)
--- NOTE | 2019-07-22 09:22 | HMH.ACPN2 ---
Internal Medicine - PN: Subj *Date: 07/22/19 *Time: 09:30 Interval history: pt states loose stools and urinary incon. Exam Vital signs and Labs for Last 24 Hours: Temp Pulse Resp BP Pulse Ox 97.9 F 68 20 132/81 93 L 07/22/19 04:00 07/22/19 04:00 07/22/19 04:00 07/22/19 04:00 07/22/19 04:00 Laboratory Results - last 24 hr 07/21/19 17:45: Stl Aeromonas (PCR) Not detected, Stl C. cayetanensis PCR Not detected, Stool Rotavirus (PCR) Not detected, Stl Adenov F 40/41 PCR Not detected, Stool Astrovirus (PCR) Not detected, Stool Campylobacter PCR Not detected, Stl C.difficile Tox PCR Not detected, Stool Cryptosporidium PCR Not detected, Stl E.coli Shiga Tox PCR Not detected, Stool E coli O157 PCR Not detected, Stl Enterotoxigenic E PCR Not detected, Stool EPEC (PCR) Not detected, Stool EAEC (PCR) Not detected, Stl E. histolytica PCR Not detected, Stool Giardia Lamblia PCR Not detected, Stool Salmonella PCR Not detected, Stool Sapovirus (PCR) Not detected, Stl P. shigelloides PCR Not detected, Stl Shigella/EIEC PCR Not detected, St Y.enterocolitica PCR Not detected, Stool Vibrio (PCR) Not detected, Stl Vibrio cholerae PCR Not detected, Stl Norovirus GI/GII PCR Not detected 07/22/19 05:30: WBC 7.9, RBC 3.84 L, Hgb 10.7 L, Hct 33.0 L, MCV 85.9, MCH 27.8, MCHC 32.4, RDW 14.9, Plt Count 230, MPV 7.5, Neut % (Auto) 82.2 H, Lymph % (Auto) 7.5 L, [place] % (Auto) 7.8, Eos % (Auto) 0.8, Baso % (Auto) 1.7, Neut # (Auto) 6.5, Lymph # (Auto) 0.6 L, [place] # (Auto) 0.6, Eos # (Auto) 0.1, Baso # (Auto) 0.1 07/22/19 05:30: Sodium 140, Potassium 3.3 L, Chloride 106, Carbon Dioxide 31 H, Anion Gap 6.3, BUN 23 H, Creatinine 1.00, Estimated Creat Clear 70, Estimated GFR 55 L, Est GFR ( Amer) 66, Glucose 93, Calcium 8.9 I & O for Last 24 hours: Intake & Output 07/19/19 07/20/19 07/21/19 07/22/19 11:59 11:59 11:59 11:59 Intake Total 1120 / 1120 1100 / 1100 1160 / 1160 1080 / 1080 Output Total Balance 1120 / 1120 1099 / 1099 1160 / 1160 1080 / 1080 Weight 194 lb 0.108 oz 196 lb 3.382 oz 193 lb 7 oz 192 lb Microbiology Reports for the Last 24 Hours: Microbiology 07/21/19 17:45 Sputum - Expectorated Sputum Gram Stain - Final - Constitutional no acute distress, obese - *Routine HEENT Exam Head: Present: normocephalic Eye: Present: PERRL ENT: Present: mucous membranes moist - *Routine Neck Exam Present: supple. Absent: lymphadenopathy - *Routine Respiratory Exam Present: decreased breath sounds, rhonchi - *Routine Cardiovascular Exam Present: RRR - *Routine Abdominal Exam Present: soft, normoactive bowel sounds. Absent: tenderness - *Routine Extremities Exam Present: full ROM. Absent: cyanosis, clubbing, edema - *Routine Skin Exam Present: intact, warm. Absent: rash - *Routine Neurological Exam Present: alert - Routine Psychiatric Exam Present: normal affect Assessment and Plan (1) HTN (hypertension) Current visit: No Status: Acute Qualifiers: Hypertension type: essential hypertension Qualified Code(s): I10 - Essential (primary) hypertension Category: Medical Code(s): I10 - Essential (primary) hypertension (2) Obesity (BMI 30-39.9) Current visit: Yes Status: Acute Category: Medical Code(s): E66.9 - Obesity, unspecified (3) Hyperlipidemia Current visit: No Status: Acute Qualifiers: Hyperlipidemia type: unspecified Qualified Code(s): E78.5 - Hyperlipidemia, unspecified Category: Medical Code(s): E78.5 - Hyperlipidemia, unspecified (4) Contusion of hip, left Current visit: Yes Status: Acute Qualifiers: Encounter type: initial encounter Qualified Code(s): S70.02XA - Contusion of left hip, initial encounter Category: Medical Code(s): S70.02XA - Contusion of left hip, initial encounter (5) COVID-19 virus infection Current visit: Yes Status: Acute Category: Medical Code(s): U07.1 - COVID-19 (6) Renal insufficie
--- NOTE | 2019-07-22 10:16 | SW/DCPLANNER ---
Addendum entered by [facility] 07/22/19 16:39: PASSR form has been completed for this patient. Addendum entered by [facility] 07/22/19 15:26: This patient has been accepted to [facility] once TWO NEGATIVE COVID-19 test are collected (this can consist of blood test per Nayana at [facility]). Addendum entered by [facility] 07/22/19 12:53: This patient has been accepted to [facility] one two NEGATIVE COVID test are collected. Addendum entered by [facility] 07/22/19 11:49: At this time patient information has been faxed to [facility]: requirement due to COVID is two negative test (can be IGG/IGM) 24 hours prior to discharge and must be asymptomatic. [facility] is reviewing patient information at this time pending COVID re-swab results. I have also spoke with Ann Marie at [facility]; COVID requirements: negative 48 hour prior to discharge and another negative 14 days after first negative. I will continue to follow up with Nayana at [facility]. Original Note: Patient was admitted to [facility] from [facility]. This patient will require a higher level of care at time of discharge: requires O2, pureed diet and incontinent of urine and bowel. I have spoke with Nayana from [facility]: she has stated they do have a female bed available. Patient information has been faxed to [facility]. Also, Maryjane with [facility] has stated that they will not have a female bed available until July 24.
--- NOTE | 2019-07-22 10:51 | HMH.ACPN ---
Internal Medicine - PN: Subj *Date: 07/22/19 *Time: 10:51 Exam Vital signs and Labs for Last 24 Hours: Temp Pulse Resp BP Pulse Ox 97.4 F L 80 19 145/85 H 90 L 07/22/19 08:00 07/22/19 08:00 07/22/19 08:00 07/22/19 08:00 07/22/19 08:00 Laboratory Results - last 24 hr 07/21/19 17:45: Stl Aeromonas (PCR) Not detected, Stl C. cayetanensis PCR Not detected, Stool Rotavirus (PCR) Not detected, Stl Adenov F 40/41 PCR Not detected, Stool Astrovirus (PCR) Not detected, Stool Campylobacter PCR Not detected, Stl C.difficile Tox PCR Not detected, Stool Cryptosporidium PCR Not detected, Stl E.coli Shiga Tox PCR Not detected, Stool E coli O157 PCR Not detected, Stl Enterotoxigenic E PCR Not detected, Stool EPEC (PCR) Not detected, Stool EAEC (PCR) Not detected, Stl E. histolytica PCR Not detected, Stool Giardia Lamblia PCR Not detected, Stool Salmonella PCR Not detected, Stool Sapovirus (PCR) Not detected, Stl P. shigelloides PCR Not detected, Stl Shigella/EIEC PCR Not detected, St Y.enterocolitica PCR Not detected, Stool Vibrio (PCR) Not detected, Stl Vibrio cholerae PCR Not detected, Stl Norovirus GI/GII PCR Not detected 07/22/19 05:30: WBC 7.9, RBC 3.84 L, Hgb 10.7 L, Hct 33.0 L, MCV 85.9, MCH 27.8, MCHC 32.4, RDW 14.9, Plt Count 230, MPV 7.5, Neut % (Auto) 82.2 H, Lymph % (Auto) 7.5 L, [place] % (Auto) 7.8, Eos % (Auto) 0.8, Baso % (Auto) 1.7, Neut # (Auto) 6.5, Lymph # (Auto) 0.6 L, [place] # (Auto) 0.6, Eos # (Auto) 0.1, Baso # (Auto) 0.1 07/22/19 05:30: Sodium 140, Potassium 3.3 L, Chloride 106, Carbon Dioxide 31 H, Anion Gap 6.3, BUN 23 H, Creatinine 1.00, Estimated Creat Clear 70, Estimated GFR 55 L, Est GFR ( Amer) 66, Glucose 93, Calcium 8.9 I & O for Last 24 hours: Intake & Output 07/19/19 07/20/19 07/21/19 07/22/19 23:59 23:59 23:59 23:59 Intake Total 880 / 880 1180 / 1180 1000 / 1000 580 / 580 Output Total Balance 880 / 879 1179 / 1179 1000 / 1000 580 / 580 Weight 88 kg 89 kg 87.742 kg 87.09 kg Microbiology Reports for the Last 24 Hours: Microbiology 07/21/19 17:45 Sputum - Expectorated Sputum Gram Stain - Final Assessment and Plan (1) HTN (hypertension) Current visit: No Status: Acute Qualifiers: Hypertension type: essential hypertension Qualified Code(s): I10 - Essential (primary) hypertension Category: Medical Code(s): I10 - Essential (primary) hypertension (2) Obesity (BMI 30-39.9) Current visit: Yes Status: Acute Category: Medical Code(s): E66.9 - Obesity, unspecified (3) Hyperlipidemia Current visit: No Status: Acute Qualifiers: Hyperlipidemia type: unspecified Qualified Code(s): E78.5 - Hyperlipidemia, unspecified Category: Medical Code(s): E78.5 - Hyperlipidemia, unspecified (4) Contusion of hip, left Current visit: Yes Status: Acute Qualifiers: Encounter type: initial encounter Qualified Code(s): S70.02XA - Contusion of left hip, initial encounter Category: Medical Code(s): S70.02XA - Contusion of left hip, initial encounter (5) COVID-19 virus infection Current visit: Yes Status: Acute Category: Medical Code(s): U07.1 - COVID-19 (6) Renal insufficiency Current visit: No Status: Resolved Category: Medical Code(s): N28.9 - Disorder of kidney and ureter, unspecified (7) Anemia Current visit: Yes Status: Acute Qualifiers: Anemia type: unspecified type Qualified Code(s): D64.9 - Anemia, unspecified Category: Medical Code(s): D64.9 - Anemia, unspecified (8) Aspiration pneumonia Current visit: Yes Status: Acute Qualifiers: Aspiration pneumonia type: unspecified Laterality: right Lung location: unspecified part of lung Qualified Code(s): J69.0 - Pneumonitis due to inhalation of food and vomit Category: Medical Code(s): J69.0 - Pneumonitis due to inhalation of food and vomit (9) Psychosis Current visit: No Status: Acute Qualifiers: Psychosis typ
--- NOTE | 2019-07-22 12:47 | HMH.PTEV ---
Physical Therapy Evaluation Rehab PT IP Evaluation Start: 07/22/19 09:26 Freq: ONCE Status: Active Protocol: Document 07/22/19 12:39 [email or web address] (Rec: 07/22/19 12:47 [email or web address] [id number]) Subjective/History History History This is the initial IP PT evaluation for Kate Mccoy. Pt is a 73 y/o female admitted to [facility] thru ER for COVID + Subjective Subjective Pt reports she does not ambulate at [facility] because of R knee athritis. Pt reports she keeps asking for PT [facility] but they won't give her any. Rehab PT IP Eval Objective Appearance Patient Behavior Guarded,Distractible,Talkative Patient Orientation Person,Place,Year Difficulty following instructions mild Speech Pattern Clear Ambulation Patient Able to Ambulate No Balance Ability to Arise Unable Sitting Balance Leans or slides in chair Standing Balance Unsteady Dynamic Sitting Balance Ability Poor Dynamic Standing Balance Ability Zero Transfers Bed Transfer Ability Minimal x 2 (25% assist) Sit to Stand Bed Transfer Ability Moderate x 2 (50% assist) Rehab PT IP prob,goals,plan Problems Date of Evaluation: 07/22/19 PT IP Problems Bed Mobility,Transfers,Gait, Balance,Self care,Safety Rehab Potential Rehab Potential Poor Equipment Needs Assistive Devices None / NA Plan PT Intervention Plan Bed Mobility,Transfers,Gait, Balance,Therapeutic Exercise PT Plan Frequency BID Duration LOS Discharge Goals Bed Transfer Ability Contact Guard/Hand Hold Sit to Stand Chair Transfer Ability Moderate x 1 (50% assist) Ambulation Assistive Device None Discharge Plan PT Discharge Plan Pt to return to LTC facility s /p LOS and once medically stable - G -code Required No Eval Complexity Eval Charge Codes 79260 - High Complexity PHYSICIAN CERTIFICATION: I certify the specified therapy services for Kate Mccoy are required, authorized, and reviewed every 30 days.
--- NOTE | 2019-07-22 13:43 | HMH.OTEV ---
OT Inpatient Evaluation Rehab OT IP Evaluation Start: 07/22/19 09:26 Freq: ONCE Status: Complete Protocol: [facility] 07[facility]22/19 13:[facility] (Rec: 07/22/19 13:43 [facility] [id number]) Rehab OT IP Assessment Subjective History Pt oriented to person on arrival. Pt agreeable to engage in therapy evaluation. Pt is a 73 year old female who was admitted via ED for COVID-19 +. Pt resides at a senior care and according to patient she does not ambulate; she only transfers from wheelchair from surface to surface. Pt claims she was independent with ADLs, but was dependent upon staff for the completion of IADL's. Subjective I need the nurse to look at this needle. Objective Patient Orientation Person Upper Extremity Gross ROM WFL Bed Mobility bed mobility-scooting,bed mobility - supine/sit,bed mobility - rolling Assist Level Minimal x 1 (25% assist) Transfer Training Sit/Stand Transfer Assist Level Moderate x 2 (50% assist) Rehab OT IP prob,goals,plan Problems Date of Evaluation: 07/22/19 OT IP Problems Bed Mobility,Transfers,Gait, Balance,Self care,Safety Rehab Potential Rehab Potential Good Equipment Needs Assistive Devices Rolling / Wheeled Walker, Wheelchair Plan OT intervention Plan Bed Mobility,Transfers,Gait, Balance,Self care,Safety, Therapeutic Exercise OT Plan Frequency Daily Duration LOS Discharge Goals Bed Mobility Ability Standby Assistance Sit to Stand Chair Transfer Ability Minimal x 2 (25% assist) Chair Transfer Ability Minimal x 2 (25% assist) Chair Transfer Technique Sit to/from Ambulatory Chair Transfer Assistive Devices Rolling Walker Self care skills fully toilet trained,dressing/ undressing independently,uses utensils to feed self Feeding Ability Independent Lower Body Dressing Ability Assistance X1 Upper Body Dressing Ability Standby Assistance Bathing Ability Assistance x1 Performing Toilet Hygiene Ability Standby Assistance Discharge
[2019-07-22 16:27] LABS: Coronavirus 19 IgM Antibody Negative (Negative)
[2019-07-22 16:29] LABS: Coronavirus 19 IgG Antibody Positive (Negative)
--- NOTE | 2019-07-22 18:18 | PC.NURSE ---
Pt alert and oriented and able to make needs known. Pt has been weaned to 2 L NC and tolerating well at this time. CB in reach. VSS. NAD. RR even and unlabored. No complaints at this time.
--- NOTE | 2019-07-22 23:00 | PC.NURSE ---
PT. ON 2L NC WHEN ARRIVED TO SHIFT; PT. SAT 88-90%. AT 2099 PT. BECAME SOA, SHE WAS TALKING ON THE PHONE, TITRATED O2 TO 3.5L AND ADMINISTERED COMBIVENT. PT. DESAT TO 85-86%; INCREASED O2 TO 4L. AT 2244- PT. DESAT TO 80%, REPOSITIONED, PT. COUGHED AND PLACED ON 50% VENTI MASK WITH O2 SAT 88-91%; WILL ATTEMPT TO WEAN O2 T/O SHIFT.
[2019-07-23] VITALS (7 sets, daily range): BP systolic 120–142; BP diastolic 67–89; PULSE 73–87; RESP 16–22; TEMP 36.1–37.2; O2SAT 88–95; BMI 37.1
--- NOTE | 2019-07-23 06:00 | XR_ITS ---
PROCEDURE: XR CHEST AP CLINICAL HISTORY: covid/pnemonia COMPARISON: XR CHEST AP from 03/09/2019 XR CHEST PORTABLE from 07/16/2019 XR CHEST PORTABLE from 07/17/2019 CT CHEST WO CON from 07/18/2019 FINDINGS: There are low lung volumes. There is cardiomegaly without failure. There is persistent pneumonia in the right lower lobe. In addition, infiltrates have developed in the right upper lobe and left upper and left lower lobe. No effusions. There are degenerative changes of the shoulders. No acute bony abnormalities. IMPRESSION: Worsening bilateral pneumonia Dictated by: Black Godfrey MD 07/23/2019 07:03 Electronically signed by Black Godfrey MD in [facility] 07/23/2019 07:03
[2019-07-23 09:35] LABS: Basophils # 0.3 K/mm3 (0-0.2); Basophils % 3.1 % (0.1-2.0); Eosinophils # 0.1 K/mm3 (0.0-0.4); Eosinophils % 1.2 % (0.1-12.0); Hematocrit 32.8 % (37.0-47.0); Hemoglobin 10.9 g/dL (12.2-16.2); Lymphocytes # 0.6 K/mm3 (0.7-4.5); Lymphocytes % 6.7 % (10-50); Mean Corpuscular HGB Conc 33.2 g/dL (31.8-35.4); Mean Corpuscular Hemoglobin 27.5 pg (27.0-31.2); Mean Corpuscular Volume 82.7 fl (81-99); Mean Platelet Volume 8.2 fl (7.4-10.4); Monocytes # 0.6 K/mm3 (0.1-1.0); Neutrophils % 81.9 % (37.0-80.0); Platelet Count 292 K/mm3 (142-424); Red Blood Count 3.97 M/mm3 (4.20-5.40); Red Cell Distribution Width 14.9 % (11.5-17.5); White Blood Count 8.6 K/mm3 (4.8-10.8)
[2019-07-23 10:01] LABS: Chloride 106 mmol/L (98-107); Potassium 3.6 mmoL/L (3.5-5.1); Sodium 141 mmol/L (136-145)
[2019-07-23 10:04] LABS: Anion Gap 9.6 mEq/L (5-15); Blood Urea Nitrogen 25 mg/dl (7-17); Calcium 8.8 mg/dl (8.4-10.2); Carbon Dioxide 29 mmol/L (22.0-30.0); Creatinine Clearance Estimated 67 mL/min (50-200); Estimated Glomerular Filt Rate 71 ml/min (>60); GFR (African American) 85 ML/MIN (>60); Glucose 88 mg/dl (74-100)
--- NOTE | 2019-07-23 10:17 | HMH.ACPN2 ---
Internal Medicine - PN: Subj *Date: 07/23/19 *Time: 10:28 Interval history: 73 YOF sitting up in bed denies SOA. Inst she needs to be OOB as much as possible. She is agreeable to this. Exam Vital signs and Labs for Last 24 Hours: Temp Pulse Resp BP Pulse Ox 97.9 F 73 22 137/87 90 L 07/23/19 07:44 07/23/19 07:44 07/23/19 07:44 07/23/19 07:44 07/23/19 07:55 Laboratory Results - last 24 hr 07/22/19 14:45: SARS-CoV-2 IgG Ab (Rapid) Positive A, SARS-CoV-2 IgM Ab (Rapid) Negative 07/23/19 09:10: WBC 8.6, RBC 3.97 L, Hgb 10.9 L, Hct 32.8 L, MCV 82.7, MCH 27.5, MCHC 33.2, RDW 14.9, Plt Count 292 D, MPV 8.2, Neut % (Auto) 81.9 H, Lymph % (Auto) 6.7 L, [place] % (Auto) 7.0, Eos % (Auto) 1.2, Baso % (Auto) 3.1 H, Neut # (Auto) 7.0, Lymph # (Auto) 0.6 L, [place] # (Auto) 0.6, Eos # (Auto) 0.1, Baso # (Auto) 0.3 H 07/23/19 09:10: Sodium 141, Potassium 3.6, Chloride 106, Carbon Dioxide 29, Anion Gap 9.6, BUN 25 H, Creatinine 0.80, Estimated Creat Clear 67, Estimated GFR 71, Est GFR ( Amer) 85 D, Glucose 88, Calcium 8.8 I & O for Last 24 hours: Intake & Output 07/20/19 07/21/19 07/22/19 07/23/19 23:59 23:59 23:59 23:59 Intake Total 1180 / 1180 1000 / 1000 1630 / 1630 Output Total Balance 1179 / 1179 1000 / 1000 1630 / 1630 Weight 196 lb 3.382 oz 193 lb 7 oz 192 lb 184 lb 8 oz - Constitutional no acute distress - *Routine HEENT Exam Head: Present: normocephalic ENT: Present: mucous membranes moist - *Routine Neck Exam Present: full ROM, trachea midline. Absent: JVD, tracheal deviation - *Routine Respiratory Exam Present: rhonchi, diminished air movement. Absent: accessory muscle use - *Routine Cardiovascular Exam Present: RRR - *Routine Abdominal Exam Present: soft, normoactive bowel sounds. Absent: tenderness, firm - *Routine Extremities Exam Present: full ROM, pulses intact. Absent: calf tenderness - *Routine Skin Exam Present: intact, warm. Absent: jaundice - *Routine Neurological Exam Present: alert - Routine Psychiatric Exam Present: normal affect Assessment and Plan (1) HTN (hypertension) Current visit: No Status: Acute Qualifiers: Hypertension type: essential hypertension Qualified Code(s): I10 - Essential (primary) hypertension Category: Medical Code(s): I10 - Essential (primary) hypertension (2) Obesity (BMI 30-39.9) Current visit: Yes Status: Acute Category: Medical Code(s): E66.9 - Obesity, unspecified (3) Hyperlipidemia Current visit: No Status: Acute Qualifiers: Hyperlipidemia type: unspecified Qualified Code(s): E78.5 - Hyperlipidemia, unspecified Category: Medical Code(s): E78.5 - Hyperlipidemia, unspecified (4) Contusion of hip, left Current visit: Yes Status: Acute Qualifiers: Encounter type: initial encounter Qualified Code(s): S70.02XA - Contusion of left hip, initial encounter Category: Medical Code(s): S70.02XA - Contusion of left hip, initial encounter (5) COVID-19 virus infection Current visit: Yes Status: Acute Category: Medical Code(s): U07.1 - COVID-19 (6) Renal insufficiency Current visit: No Status: Resolved Category: Medical Code(s): N28.9 - Disorder of kidney and ureter, unspecified (7) Anemia Current visit: Yes Status: Acute Qualifiers: Anemia type: unspecified type Qualified Code(s): D64.9 - Anemia, unspecified Category: Medical Code(s): D64.9 - Anemia, unspecified (8) Aspiration pneumonia Current visit: Yes Status: Acute Qualifiers: Aspiration pneumonia type: unspecified Laterality: right Lung location: unspecified part of lung Qualified Code(s): J69.0 - Pneumonitis due to inhalation of food and vomit Category: Medical Code(s): J69.0 - Pneumonitis due to inhalation of food and vomit (9) Psychosis Current visit: No Status: Acute Qualifiers: Psychosis type: unspecified psychosis type Qualif
--- NOTE | 2019-07-23 14:29 | SW/DCPLANNER ---
Updated patient information has been sent to Nayana at [facility]. Nayana has stated that patient will need one additional negative COVID screening (07/21 IgM Negative as the first negative). COVID swab has been ordered for this patient. If negative patient may be ready for discharge tomorrow. Nayana with [facility] is aware of plan for this patient.
--- NOTE | 2019-07-23 16:47 | PC.NURSE ---
PATIENT HAS BEEN SITTING IN CHAIR MOST OF THE SHIFT. SHE DOES NOT TOLERATE ACTIVITY WELL. SHE IS INCONTINENT OF BOWEL AND BLADDER. SHE KNOWS WHEN SHE IS WET. ATTEMPTING TO USE PUREWICK AT THIS TIME. CALL LIGHT WITHIN REACH WILL CONTINUE TO MONITOR
[2019-07-24] VITALS (10 sets, daily range): BP systolic 117–143; BP diastolic 64–80; PULSE 75–119; RESP 18–22; TEMP 35.9–37.8; O2SAT 85–93; BMI 38.7
--- NOTE | 2019-07-24 03:25 | PC.NURSE ---
A&OX4. HAS TOLERATED 3.5L NC WELL THROUGHOUT SHIFT. RHONCHI AND WHEEZES NOTED THROUGHOUT. PRODUCTIVE INTERMITTENT COUGH NOTED THROUGHOUT SHIFT. PT ENCOURAGED TO USE INCENTIVE SPIROMETER Q 1 HOUR WHILE AWAKE. HEART RATE REGULAR. HAND EDUCATIONAL MANAGER BILATERALLY EQUAL. +2 PULSES NOTED THROUGHOUT. NONPITTING EDEMA NOTED TO BLE. PUREWICK CATH IN PLACE W YELLOW URINE DRAINING INTO SUCTION CANISTER. CONTACT AND AIR[employer]ORNE PRECAUTIONS W EYE PROTECTION IN PLACE THROUGHOUT SHIFT. PT RECEIVED BED BATH AND LINEN CHANGE DONE BY STAFF. PT AMBULATED FROM CHAIR TO BED WITH 1 PERSON ASSIST. TOLERATED WELL. PT DRANK HONEYTHICK STEFF MIST DURING SHIFT AND TOLERATED WELL. ACTIVE BOWEL SOUNDS HEARD IN ALL 4 QUADRANTS. NO BM NOTED THIS SHIFT. SOFT AND NONTENDER ABDOMEN. NO COMPLAINTS OF PAIN THROUGHOUT SHIFT. PT RESTING COMFORTABLY IN BED. VSS. BED IN LOWEST POSITION. CALL LIGHT WITHIN REACH. NO CONCERNS AT THIS TIME. WILL CONTINUE TO MONITOR.
--- NOTE | 2019-07-24 06:00 | XR_ITS ---
PROCEDURE: XR CHEST AP CLINICAL HISTORY: covid/pnemonia COMPARISON: XR CHEST PORTABLE from 07/16/2019 XR CHEST PORTABLE from 07/17/2019 CT CHEST WO CON from 07/18/2019 XR CHEST AP from 07/23/2019 FINDINGS: Mild cardiomegaly without failure Right upper, right lower lobe, and left lower lobe pneumonia is noted which appears slightly worse on both sides. No effusions. No acute bony abnormalities. IMPRESSION: Bilateral pneumonia slightly worse Dictated by: Black Godfrey MD 07/24/2019 06:44 Electronically signed by Black Godfrey MD in [facility] 07/24/2019 06:44
[2019-07-24 06:31] LABS: Chloride 105 mmol/L (98-107); Sodium 143 mmol/L (136-145)
[2019-07-24 06:32] LABS: Potassium 3.1 mmoL/L (3.5-5.1)
[2019-07-24 06:35] LABS: Anion Gap 10.1 mEq/L (5-15); Blood Urea Nitrogen 24 mg/dl (7-17); Calcium 8.7 mg/dl (8.4-10.2); Carbon Dioxide 31 mmol/L (22.0-30.0); Creatinine Clearance Estimated 70 mL/min (50-200); Estimated Glomerular Filt Rate 62 ml/min (>60); GFR (African American) 74 ML/MIN (>60); Glucose 108 mg/dl (74-100)
[2019-07-24 06:41] LABS: Basophils # 0.3 K/mm3 (0-0.2); Basophils % 2.7 % (0.1-2.0); Eosinophils # 0.2 K/mm3 (0.0-0.4); Eosinophils % 1.7 % (0.1-12.0); Hematocrit 32.1 % (37.0-47.0); Hemoglobin 10.3 g/dL (12.2-16.2); Lymphocytes # 0.2 K/mm3 (0.7-4.5); Lymphocytes % 1.9 % (10-50); Mean Corpuscular Hemoglobin 27.6 pg (27.0-31.2); Mean Corpuscular Volume 86.1 fl (81-99); Mean Platelet Volume 7.6 fl (7.4-10.4); Monocytes # 0.5 K/mm3 (0.1-1.0); Monocytes % 5.1 % (1.7-9.3); Neutrophils % 88.5 % (37.0-80.0); Platelet Count 317 K/mm3 (142-424); Red Blood Count 3.73 M/mm3 (4.20-5.40); Red Cell Distribution Width 14.9 % (11.5-17.5); White Blood Count 10.2 K/mm3 (4.8-10.8)
[2019-07-24 06:52] LABS: MANUAL DIFFERENTIAL MANUAL DIFFERENTIAL (MANUAL DIFF)
[2019-07-24 07:52] LABS: Eosinophils % 2 % (0-3); Hypochromasia 1+; Lymphocytes % 6 % (10-50); Monocytes % 4 % (2-9); Neutrophils % 85 % (42-76); Nucleated Red Blood Cells 4; Platelet Estimate Normal; Total Cells Counted 100
[2019-07-24 08:42] LABS: Covid-19 Nasal PCR Sendout Lex DETECTED
[2019-07-24 10:23] LABS: Coronavirus 19 IgG Antibody Negative (Negative); Coronavirus 19 IgM Antibody Negative (Negative)
[2019-07-24 10:23] LABS: Coronavirus 19 IgG Antibody Negative (Negative); Coronavirus 19 IgM Antibody Negative (Negative)
[2019-07-24 11:36] LABS: Alanine Aminotransferase 19 U/L (12-78); Aspartate Amino Transferase 44 U/L (14-36); Bilirubin,Direct 0.3 mg/dl (0.0-0.4); Bilirubin,Total 0.3 mg/dl (0.2-1.3)
[2019-07-24 11:37] LABS: Alkaline Phosphatase 89 U/L (38-126)
--- NOTE | 2019-07-24 11:46 | HMH.ACPN2 ---
Internal Medicine - PN: Subj *Date: 07/24/19 *Time: 11:48 Interval history: 73-year-old female patient sitting up in chair, reports she is feeling feeling better. Nasal swab still COVID-19 positive Exam Vital signs and Labs for Last 24 Hours: Temp Pulse Resp BP Pulse Ox 97.2 F L 96 H 18 123/72 91 L 07/24/19 08:00 07/24/19 08:00 07/24/19 08:00 07/24/19 08:00 07/24/19 08:35 Laboratory Results - last 24 hr 07/18/19 05:48: SARS-CoV-2 IgG Ab (Rapid) Negative, SARS-CoV-2 IgM Ab (Rapid) Negative 07/20/19 04:40: SARS-CoV-2 IgG Ab (Rapid) Negative, SARS-CoV-2 IgM Ab (Rapid) Negative 07/22/19 14:21: SARS-CoV-2 (PCR) Detected 07/24/19 06:10: WBC 10.2, RBC 3.73 L, Hgb 10.3 L, Hct 32.1 L, MCV 86.1, MCH 27.6, MCHC 32.0, RDW 14.9, Plt Count 317, MPV 7.6, Neut % (Auto) 88.5 H, Lymph % (Auto) 1.9 L, [place] % (Auto) 5.1, Eos % (Auto) 1.7, Baso % (Auto) 2.7 H, Neut # (Auto) 9.0 H, Lymph # (Auto) 0.2 L, [place] # (Auto) 0.5, Eos # (Auto) 0.2, Baso # (Auto) 0.3 H, Total Counted 100, Neutrophils % (Manual) 85 H, Lymphocytes % (Manual) 6 L, Monocytes % (Manual) 4, Eosinophils % (Manual) 2, Basophils % (Manual) 3.0 H, Nucleated RBCs 4, Platelet Estimate Normal, Hypochromasia 1+ 07/24/19 06:10: Sodium 143, Potassium 3.1 L, Chloride 105, Carbon Dioxide 31 H, Anion Gap 10.1, BUN 24 H, Creatinine 0.90, Estimated Creat Clear 70, Estimated GFR 62, Est GFR ( Amer) 74, Glucose 108 H D, Calcium 8.7 07/24/19 06:10: Total Bilirubin 0.3, Direct Bilirubin 0.3, Conjugated Bilirubin 0.0, Indirect Bilirubin 0.0, Unconjugated Bilirubin 0.0, AST 44 H, ALT 19, Alkaline Phosphatase 89, Total Protein 7.0, Albumin 3.0 L I & O for Last 24 hours: Intake & Output 07/21/19 07/22/19 07/23/19 07/24/19 23:59 23:59 23:59 23:59 Intake Total 1000 / 1000 1780 / 1780 1170 / 1170 460 / 460 Output Total 150 / 150 100 / 100 Balance 1000 / 1000 1780 / 1780 1020 / 1020 360 / 360 Weight 193 lb 7 oz 192 lb 184 lb 8 oz 192 lb 7 oz Microbiology Reports for the Last 24 Hours: Microbiology 07/21/19 17:45 Sputum - Expectorated Sputum Gram Stain - Final 07/21/19 17:45 Sputum - Expectorated Sputum Sputum Culture - Final Normal Respiratory Leslie - Constitutional no acute distress - *Routine HEENT Exam Head: Present: normocephalic ENT: Present: mucous membranes moist - *Routine Neck Exam Present: full ROM, trachea midline. Absent: JVD, tracheal deviation - *Routine Respiratory Exam Present: CTA bilaterally. Absent: accessory muscle use - *Routine Cardiovascular Exam Present: RRR - *Routine Abdominal Exam Present: soft, normoactive bowel sounds. Absent: tenderness, firm - *Routine Extremities Exam Present: pulses intact. Absent: calf tenderness - *Routine Skin Exam Present: intact, warm. Absent: jaundice - *Routine Neurological Exam Present: alert, oriented X3 - Routine Psychiatric Exam Present: normal affect Assessment and Plan (1) HTN (hypertension) Current visit: No Status: Acute Qualifiers: Hypertension type: essential hypertension Qualified Code(s): I10 - Essential (primary) hypertension Category: Medical Code(s): I10 - Essential (primary) hypertension (2) Obesity (BMI 30-39.9) Current visit: Yes Status: Acute Category: Medical Code(s): E66.9 - Obesity, unspecified (3) Hyperlipidemia Current visit: No Status: Acute Qualifiers: Hyperlipidemia type: unspecified Qualified Code(s): E78.5 - Hyperlipidemia, unspecified Category: Medical Code(s): E78.5 - Hyperlipidemia, unspecified (4) Contusion of hip, left Current visit: Yes Status: Acute Qualifiers: Encounter type: initial encounter Qualified Code(s): S70.02XA - Contusion of left hip, initial encounter Category: Medical Code(s): S70.02XA - Contusion of left hip, initial encounter (5) COVID-19 virus infection Current visit: Yes Status: Acute Category: Medical Code(s): U07.1 -
[2019-07-24 12:10] LABS: NT Pro Brain Natriuretic Pep. 356 pg/mL (0-125)
[2019-07-24 13:52] LABS: Covid-19 Nasal PCR Sendout Lex DETECTED
--- NOTE | 2019-07-24 14:22 | DIET.NUTRFU ---
Pt continues with low appetite- 25% intakes. Weight has remained stable. Continuing to monitor.
--- NOTE | 2019-07-24 16:30 | PC.NURSE ---
pt is a max assist times 2. pt requested to have a brief applied instead of using the pur wick. pt was informed that if she knew when she needed to go to the restroom, to let staff know and we would help her to the bsc. pt is unable to stand straight up on her own, nor can she move to and from the bsc without max assist.
[2019-07-25] VITALS (7 sets, daily range): BP systolic 108–138; BP diastolic 51–74; PULSE 55–88; RESP 16–20; TEMP 36.2–37.1; O2SAT 88–92; BMI 38.9
--- NOTE | 2019-07-25 02:05 | PC.NURSE ---
PT A&O x 4. 4L NC O2 sats 87-91 %. Wheezes noted throughout. dry non-productive cough. Pt encouraged to use incentive spirometer while awake.CONTACT AND AIR[employer]NE PRECAUTIONS W EYE PROTECTION IN PLACE THROUGHOUT SHIFT. Pt reports pain in left side of ABD from coughing medicate per MAR. PT resting in comfortably in bed
[2019-07-25 06:00] LABS: Basophils # 0.5 K/mm3 (0-0.2); Basophils % 3.9 % (0.1-2.0); Eosinophils # 0.3 K/mm3 (0.0-0.4); Eosinophils % 2.3 % (0.1-12.0); Hematocrit 31.8 % (37.0-47.0); Hemoglobin 10.5 g/dL (12.2-16.2); Lymphocytes # 0.3 K/mm3 (0.7-4.5); Lymphocytes % 2.9 % (10-50); Mean Corpuscular Hemoglobin 27.8 pg (27.0-31.2); Mean Corpuscular Volume 84.2 fl (81-99); Mean Platelet Volume 7.7 fl (7.4-10.4); Monocytes # 0.6 K/mm3 (0.1-1.0); Monocytes % 5.3 % (1.7-9.3); Neutrophils # 10.3 K/mm3 (1.8-7.8); Neutrophils % 85.6 % (37.0-80.0); Platelet Count 309 K/mm3 (142-424); Red Blood Count 3.78 M/mm3 (4.20-5.40); Red Cell Distribution Width 14.8 % (11.5-17.5)
--- NOTE | 2019-07-25 06:00 | XR_ITS ---
PROCEDURE: XR CHEST AP CLINICAL HISTORY: covid/pnemonia COMPARISON: XR CHEST PORTABLE from 07/17/2019 CT CHEST WO CON from 07/18/2019 XR CHEST AP from 07/23/2019 XR CHEST AP from 07/24/2019 FINDINGS: Mild cardiomegaly. Right upper and right lower lobe and left mid and lower lung zone consolidation once again noted consistent bilateral pneumonia overall not significantly changed. No acute bony abnormalities. IMPRESSION: No change bilateral pneumonia Dictated by: Black Godfrey MD 07/25/2019 08:10 Electronically signed by Black Godfrey MD in [facility] 07/25/2019 08:10
[2019-07-25 06:03] LABS: Chloride 105 mmol/L (98-107); MANUAL DIFFERENTIAL MANUAL DIFFERENTIAL (MANUAL DIFF); Potassium 3.4 mmoL/L (3.5-5.1); Sodium 142 mmol/L (136-145)
[2019-07-25 06:06] LABS: Anion Gap 11.4 mEq/L (5-15); Blood Urea Nitrogen 28 mg/dl (7-17); Calcium 8.6 mg/dl (8.4-10.2); Carbon Dioxide 29 mmol/L (22.0-30.0); Creatinine Clearance Estimated 64 mL/min (50-200); Estimated Glomerular Filt Rate 49 ml/min (>60); GFR (African American) 59 ML/MIN (>60); Glucose 91 mg/dl (74-100)
--- NOTE | 2019-07-25 06:57 | PC.NURSE ---
Pt's BLE have mild +1 pitting edema to calves. BLE placed on pillow and legs raised.
[2019-07-25 07:38] LABS: Eosinophils % 2 % (0-3); Hypochromasia 1+; Lymphocytes % 4 % (10-50); Monocytes % 8 % (2-9); Neutrophils % 82 % (42-76); Platelet Estimate Normal; Total Cells Counted 100
--- NOTE | 2019-07-25 09:06 | HMH.ACPN2 ---
Internal Medicine - PN: Renan *Date: 07/25/19 *Time: 09:06 Interval history: States she feels fine today just having some pain in her legs. Exam Vital signs and Labs for Last 24 Hours: Temp Pulse Resp BP Pulse Ox 97.1 F L 87 18 138/74 91 L 07/25/19 07:51 07/25/19 07:51 07/25/19 07:51 07/25/19 07:51 07/25/19 08:00 Laboratory Results - last 24 hr 07/18/19 05:48: SARS-CoV-2 IgG Ab (Rapid) Negative, SARS-CoV-2 IgM Ab (Rapid) Negative 07/20/19 04:40: SARS-CoV-2 IgG Ab (Rapid) Negative, SARS-CoV-2 IgM Ab (Rapid) Negative 07/23/19 09:48: SARS-CoV-2 (PCR) Detected 07/24/19 06:10: Total Bilirubin 0.3, Direct Bilirubin 0.3, Conjugated Bilirubin 0.0, Indirect Bilirubin 0.0, Unconjugated Bilirubin 0.0, AST 44 H, ALT 19, Alkaline Phosphatase 89, Total Protein 7.0, Albumin 3.0 L 07/24/19 06:10: NT-Pro-B Natriuret Pep 356 H 07/25/19 05:20: WBC 12.0 H, RBC 3.78 L, Hgb 10.5 L, Hct 31.8 L, MCV 84.2, MCH 27.8, MCHC 33.0, RDW 14.8, Plt Count 309, MPV 7.7, Neut % (Auto) 85.6 H, Lymph % (Auto) 2.9 L, [place] % (Auto) 5.3, Eos % (Auto) 2.3, Baso % (Auto) 3.9 H, Neut # (Auto) 10.3 H, Lymph # (Auto) 0.3 L, [place] # (Auto) 0.6, Eos # (Auto) 0.3, Baso # (Auto) 0.5 H, Total Counted 100, Neutrophils % (Manual) 82 H, Lymphocytes % (Manual) 4 L, Monocytes % (Manual) 8, Eosinophils % (Manual) 2, Basophils % (Manual) 4.0 H, Platelet Estimate Normal, Hypochromasia 1+ 07/25/19 05:20: Sodium 142, Potassium 3.4 L, Chloride 105, Carbon Dioxide 29, Anion Gap 11.4, BUN 28 H, Creatinine 1.10 H D, Estimated Creat Clear 64, Estimated GFR 49 L, Est GFR ( Amer) 59 D, Glucose 91, Calcium 8.6 I & O for Last 24 hours: Intake & Output 07/22/19 07/23/19 07/24/19 07/25/19 11:59 11:59 11:59 11:59 Intake Total 1350 / 1350 930 / 930 1630 / 1630 1480 / 1480 Output Total 250 / 250 600 / 600 Balance 1350 / 1350 930 / 930 1380 / 1380 880 / 880 Weight 192 lb 184 lb 8 oz 192 lb 7 oz 193 lb 8 oz Microbiology Reports for the Last 24 Hours: Microbiology 07/21/19 17:45 Sputum - Expectorated Sputum Gram Stain - Final 07/21/19 17:45 Sputum - Expectorated Sputum Sputum Culture - Final Normal Respiratory Leslie - Constitutional no acute distress, obese - *Routine HEENT Exam Head: Present: normocephalic Eye: Present: PERRL ENT: Present: mucous membranes moist - *Routine Neck Exam Present: supple. Absent: lymphadenopathy - *Routine Respiratory Exam Present: decreased breath sounds, rhonchi - *Routine Cardiovascular Exam Present: RRR - *Routine Abdominal Exam Present: soft, normoactive bowel sounds. Absent: tenderness - *Routine Extremities Exam Present: normal capillary refill. Absent: cyanosis, clubbing, edema Comments: Redness or breakdown noted to legs - *Routine Skin Exam Present: intact, warm. Absent: rash - *Routine Neurological Exam Present: alert - Routine Psychiatric Exam Present: normal affect Assessment and Plan (1) HTN (hypertension) Current visit: No Status: Acute Qualifiers: Hypertension type: essential hypertension Qualified Code(s): I10 - Essential (primary) hypertension Category: Medical Code(s): I10 - Essential (primary) hypertension (2) Obesity (BMI 30-39.9) Current visit: Yes Status: Acute Category: Medical Code(s): E66.9 - Obesity, unspecified (3) Hyperlipidemia Current visit: No Status: Acute Qualifiers: Hyperlipidemia type: unspecified Qualified Code(s): E78.5 - Hyperlipidemia, unspecified Category: Medical Code(s): E78.5 - Hyperlipidemia, unspecified (4) Contusion of hip, left Current visit: Yes Status: Acute Qualifiers: Encounter type: initial encounter Qualified Code(s): S70.02XA - Contusion of left hip, initial encounter Category: Medical Code(s): S70.02XA - Contusion of left hip, initial encounter (5) COVID-19 virus infection Current visit: Yes Status: Acute Category: Medical Code(s): U07.
--- NOTE | 2019-07-25 09:46 | SW/DCPLANNER ---
I have spoke with Nayana from [facility] this morning. I have informed Nayana that at this time we are still waiting for two negative COVID test.I will continue to update Nayana from [facility].
[2019-07-25 12:28] LABS: Covid-19 Nasal PCR Sendout Lex Positive
--- NOTE | 2019-07-25 17:40 | PC.NURSE ---
PT UP TO CHAIR MOST OF SHIFT. PT CURRENTLY ON 2 L O2 PER NASAL CANNULA, TOLERATING WELL. ORAL CARE PROVIDED Q2HP. BLE NOTED TO HAVE EDEMA AND REDNESS, MADE AWARE THIS AM ON MORNING ROUNDS. PT INCONTINENT OF BOWELS X1 THIS SHIFT. PT REQUIRES ASSISTANCE X1 TO BSC. PT PARTICIPATED W/ PT THIS SHIFT. NO NEEDS VOICED. WILL CONTINUE TO MONITOR.
[2019-07-26] VITALS: BP 136/64; PULSE 94; RESP 22; TEMP 36.3; O2SAT 84; O2SAT 88
--- NOTE | 2019-07-26 00:10 | PC.NURSE ---
Phoned Dr Wong r/t pt's oxygen saturation dropping into 80's, reports This happens every night. Going to given her some lasix to see if that helps.
--- NOTE | 2019-07-26 01:54 | PC.NURSE ---
Pt is presently on 50% Venti r/t oxygen sats dropping into low 80's on 022LNC which was increased to 024LNC which made little difference, brought it up by two percent, placed pt on venti pt and phoned Dr Wong who reported she does this every night and ordered 40 Lasix IV x 1. Lasix was given, pt is resting quietly at this time. Vital signs stable except for oxygenation, monitoring continues.
[2019-07-26 04:00] VITALS: BP 126/64; PULSE 70; RESP 24; TEMP 37; O2SAT 84
[2019-07-26 05:00] VITALS: BMI 38.9
--- NOTE | 2019-07-26 06:00 | XR_ITS ---
PROCEDURE: XR CHEST AP CLINICAL HISTORY: covid/pnemonia COMPARISON: CT CHEST WO CON from 07/18/2019 XR CHEST AP from 07/23/2019 XR CHEST AP from 07/24/2019 XR CHEST AP from 07/25/2019 FINDINGS: Mild cardiomegaly without failure Extensive consolidation involves the right lung with mild consolidation in the left lower lobe. The pneumonia on the right may be slightly worse. There are low lung volumes. No acute bony abnormalities. IMPRESSION: Bilateral pneumonia slightly worse on the right Dictated by: Black Godfrey MD 07/26/2019 07:00 Electronically signed by Black Godfrey MD in [facility] 07/26/2019 07:00
[2019-07-26 06:42] LABS: Chloride 108 mmol/L (98-107); Potassium 3.5 mmoL/L (3.5-5.1); Sodium 140 mmol/L (136-145)
[2019-07-26 06:43] LABS: Basophils # 0.1 K/mm3 (0-0.2); Basophils % 0.4 % (0.1-2.0); Eosinophils # 0.2 K/mm3 (0.0-0.4); Eosinophils % 1.5 % (0.1-12.0); Hematocrit 28.3 % (37.0-47.0); Hemoglobin 9.1 g/dL (12.2-16.2); Lymphocytes # 0.9 K/mm3 (0.7-4.5); Lymphocytes % 6.5 % (10-50); Mean Corpuscular HGB Conc 32.3 g/dL (31.8-35.4); Mean Corpuscular Hemoglobin 27.3 pg (27.0-31.2); Mean Corpuscular Volume 84.6 fl (81-99); Mean Platelet Volume 7.9 fl (7.4-10.4); Monocytes # 0.7 K/mm3 (0.1-1.0); Monocytes % 4.9 % (1.7-9.3); Neutrophils # 11.6 K/mm3 (1.8-7.8); Neutrophils % 86.6 % (37.0-80.0); Platelet Count 277 K/mm3 (142-424); Red Blood Count 3.35 M/mm3 (4.20-5.40); White Blood Count 13.4 K/mm3 (4.8-10.8)
[2019-07-26 06:45] LABS: Anion Gap 6.5 mEq/L (5-15); Blood Urea Nitrogen 28 mg/dl (7-17); Carbon Dioxide 29 mmol/L (22.0-30.0); Creatinine Clearance Estimated 64 mL/min (50-200); Estimated Glomerular Filt Rate 49 ml/min (>60); GFR (African American) 59 ML/MIN (>60)
[2019-07-26 06:51] LABS: Calcium 8.6 mg/dl (8.4-10.2); MANUAL DIFFERENTIAL MANUAL DIFFERENTIAL (MANUAL DIFF)
[2019-07-26 08:00] VITALS: BP 129/72; PULSE 86; RESP 22; TEMP 36.5; O2SAT 89; O2SAT 91
[2019-07-26 08:23] LABS: Glucose 92 mg/dl (74-100)
--- NOTE | 2019-07-26 08:31 | HMH.ACPN2 ---
Internal Medicine - PN: Subj *Date: 07/26/19 *Time: 08:00 Interval history: pt states she feels well today Exam Vital signs and Labs for Last 24 Hours: Temp Pulse Resp BP Pulse Ox 97.7 F 86 22 129/72 91 L 07/26/19 08:00 07/26/19 08:00 07/26/19 08:00 07/26/19 08:00 07/26/19 08:00 Laboratory Results - last 24 hr 07/26/19 05:40: WBC 13.4 H, RBC 3.35 L, Hgb 9.1 L, Hct 28.3 L, MCV 84.6, MCH 27.3, MCHC 32.3, RDW 15.0, Plt Count 277, MPV 7.9, Neut % (Auto) 86.6 H, Lymph % (Auto) 6.5 L, [place] % (Auto) 4.9, Eos % (Auto) 1.5, Baso % (Auto) 0.4, Neut # (Auto) 11.6 H, Lymph # (Auto) 0.9, [place] # (Auto) 0.7, Eos # (Auto) 0.2, Baso # (Auto) 0.1 07/26/19 05:40: Sodium 140, Potassium 3.5, Chloride 108 H, Carbon Dioxide 29, Anion Gap 6.5, BUN 28 H, Creatinine 1.10 H, Estimated Creat Clear 64, Estimated GFR 49 L, Est GFR ( Amer) 59, Glucose 92, Calcium 8.6 I & O for Last 24 hours: Intake & Output 07/23/19 07/24/19 07/25/19 07/26/19 11:59 11:59 11:59 11:59 Intake Total 930 / 930 1630 / 1630 1630 / 1630 1633 / 1633 Output Total 250 / 250 600 / 600 201 / 201 Balance 930 / 930 1380 / 1380 1030 / 1030 1432 / 1432 Weight 184 lb 8 oz 192 lb 7 oz 193 lb 8 oz 193 lb 2 oz - Constitutional no acute distress, obese - *Routine HEENT Exam Head: Present: normocephalic Eye: Present: EOMI, PERRL ENT: Present: mucous membranes moist - *Routine Neck Exam Present: supple. Absent: lymphadenopathy - *Routine Respiratory Exam Present: decreased breath sounds, CTA bilaterally - *Routine Cardiovascular Exam Present: RRR - *Routine Abdominal Exam Present: soft, normoactive bowel sounds. Absent: tenderness - *Routine Extremities Exam Present: normal capillary refill. Absent: cyanosis, clubbing, edema - *Routine Skin Exam Present: warm. Absent: rash - *Routine Neurological Exam Present: alert, oriented X3 - Routine Psychiatric Exam Present: normal affect Assessment and Plan (1) HTN (hypertension) Current visit: No Status: Acute Qualifiers: Hypertension type: essential hypertension Qualified Code(s): I10 - Essential (primary) hypertension Category: Medical Code(s): I10 - Essential (primary) hypertension (2) Obesity (BMI 30-39.9) Current visit: Yes Status: Acute Category: Medical Code(s): E66.9 - Obesity, unspecified (3) Hyperlipidemia Current visit: No Status: Acute Qualifiers: Hyperlipidemia type: unspecified Qualified Code(s): E78.5 - Hyperlipidemia, unspecified Category: Medical Code(s): E78.5 - Hyperlipidemia, unspecified (4) Contusion of hip, left Current visit: Yes Status: Acute Qualifiers: Encounter type: initial encounter Qualified Code(s): S70.02XA - Contusion of left hip, initial encounter Category: Medical Code(s): S70.02XA - Contusion of left hip, initial encounter (5) COVID-19 virus infection Current visit: Yes Status: Acute Category: Medical Code(s): U07.1 - COVID-19 (6) Anemia Current visit: Yes Status: Acute Qualifiers: Anemia type: unspecified type Qualified Code(s): D64.9 - Anemia, unspecified Category: Medical Code(s): D64.9 - Anemia, unspecified (7) Aspiration pneumonia Current visit: Yes Status: Acute Qualifiers: Aspiration pneumonia type: unspecified Laterality: right Lung location: unspecified part of lung Qualified Code(s): J69.0 - Pneumonitis due to inhalation of food and vomit Category: Medical Code(s): J69.0 - Pneumonitis due to inhalation of food and vomit (8) Psychosis Current visit: No Status: Acute Qualifiers: Psychosis type: unspecified psychosis type Qualified Code(s): 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stance or known physiological condition Category: Medical Code(s): 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stance or known physiological condition - Assessment and plan all Dx Assessment and Plan for all problems::
[2019-07-26 08:45] LABS: Lymphocytes % 7 % (10-50); Monocytes % 3 % (2-9); Neutrophils % 90 % (42-76); Platelet Estimate Normal; RBC Morphology Normal; Total Cells Counted 100
--- NOTE | 2019-07-26 10:19 | SW/DCPLANNER ---
Addendum entered by Kori Dhillon 07/26/19 17:06: Admissions and DON at [facility] is currently reviewing patient information. Original Note: Nayana at [facility] continues to be willing to accept this patient once patient has TWO NEGATIVE COVID results. Gordon from [facility] did call and inform CM that [facility] has a COVID Unit and is working closely with [facility]. I have spoke with Sindy in Admissions at [facility] and is willing to review this referral. Sindy has stated that they review patient referrals on a case by case basis. I will continue to follow up with Nayana and Sindy.
[2019-07-26 12:00] VITALS: BP 126/87; PULSE 84; RESP 20; TEMP 36.4; O2SAT 92
[2019-07-26 15:55] VITALS: BP 115/72; PULSE 80; RESP 16; TEMP 36.6; O2SAT 92
--- NOTE | 2019-07-26 15:55 | PC.NURSE ---
PATIENT HAS BEEN SITTING UP IN THE CHAIR SINCE THE START OF MY SHIFT. SHE TOLERATED THIS WELL. SATS HAVE REMAINED IN THE LOW 90S ON 3LNC. PATIENT DENIES PAIN AT THIS TIME. VSS. SHE WORKED WITH PT TODAY X2. COMPLAINS OF SORENESS BEHIND HER EARS FROM THE O2 TUBING. CALL LIGHT WITHIN REACH WILL CONTINUE TO MONITOR.
[2019-07-26 20:00] VITALS: BP 120/81; PULSE 86; RESP 18; TEMP 36.7; O2SAT 90
[2019-07-27] VITALS (7 sets, daily range): BP systolic 99–143; BP diastolic 57–71; PULSE 77–91; RESP 18–25; TEMP 36.6–36.8; O2SAT 89–91; BMI 38.7
--- NOTE | 2019-07-27 03:06 | PC.NURSE ---
No acute changes since prior assessment. Pt has slept at intervals this shift. She has remained on O2 NC this shift. She is currently on 3 L NC. She continues to desat at intervals as low as mid 70s, but recovers quickly. She is currently 93%. She has had no complaints thus far. VSS at this time. No other concerns. Will continue to monitor.
[2019-07-27 04:50] LABS: Adenovirus,PCR Not Detected (NotDetected); Bordetella Pertussis Not Detected (NotDetected); Coronavirus 229E Not Detected (NotDetected); Coronavirus NL63 Not Detected (NotDetected); Coronavirus OC43 Not Detected (NotDetected); Coronovirus HKU1,PCR Not Detected (NotDetected); Human Metapneumovirus Not Detected (NotDetected); Influenza A, PCR Not Detected (NotDetected); Influenza AH1, 2009 Not Detected (NotDetected); Influenza AH1, PCR Not Detected (NotDetected); Influenza AH3,PCR Not Detected (NotDetected); Influenza B, PCR Not Detected (NotDetected); Parainfluenza 1, PCR Not Detected (NotDetected); Parainfluenza 2, PCR Not Detected (NotDetected); Parainfluenza 3, PCR Not Detected (NotDetected); Parainfluenza 4, PCR Not Detected (NotDetected); Respiratory Syncytial Virus Not Detected (NotDetected); Rhinovirus/Enterovirus Not Detected (NotDetected)
[2019-07-27 04:51] LABS: Chlamydophila Pneumoniae, PCR Not Detected (NotDetected); Mycoplasma Pneumoniae, PCR Not Detected (NotDected)
--- NOTE | 2019-07-27 06:00 | XR_ITS ---
PROCEDURE: XR CHEST PORTABLE Patient Age:73Y CLINICAL HISTORY: covid/pneumonia Short of breath COMPARISON: CT CHEST WO CON from 07/18/2019 XR CHEST AP from 07/23/2019 XR CHEST AP from 07/24/2019 XR CHEST AP from 07/25/2019 XR CHEST AP from 07/26/2019 FINDINGS: RIGHT LUNG: Extensive patchy consolidation and infiltrates throughout the right lung. Distributed diffusely throughout mainly the periphery of the right lung. There is a area of dense linear atelectasis just above right hemidiaphragm at right base on yesterday's CXR. Of this dense atelectasis appearance has improved with persistent airspace disease, infiltrate at right infrahilar region and throughout the right base. LEFT LUNG: Fairly stable appearance to the left lung of compared to previous CXR dating back to 07/24 and July 22. Again perihilar infiltrate evident which extends outward to the left mid lung and left infrahilar region/left base of question small patchy focus infiltrate almost nodular character at medial left apex near just below the 1st rib end. This could be related to some overlapping hypertrophic rib changes. Chest wall unremarkable. Heart normal size but upper normal with of the superior mediastinum reflecting the AP upright CXR projection. IMPRESSION: Bilateral pneumonia, findings most pronounced throughout right chest. . Right chest: No slight improvement of atelectasis right lung base since July 25 and 07/25/2019 CXRs, but the significant patchy infiltrate persists most evidentThroughout the periphery of the right lung Dictated by: Petros Mirza MD 07/27/2019 09:31 Electronically signed by Petros Mirza MD in [facility] 07/27/2019 09:31
[2019-07-27 06:47] LABS: Chloride 107 mmol/L (98-107); Sodium 139 mmol/L (136-145)
[2019-07-27 06:48] LABS: Potassium 4.4 mmoL/L (3.5-5.1)
[2019-07-27 06:50] LABS: Blood Urea Nitrogen 26 mg/dl (7-17); Creatinine Clearance Estimated 70 mL/min (50-200); Estimated Glomerular Filt Rate 62 ml/min (>60); GFR (African American) 74 ML/MIN (>60)
[2019-07-27 06:51] LABS: Anion Gap 10.4 mEq/L (5-15); Calcium 8.5 mg/dl (8.4-10.2); Carbon Dioxide 26 mmol/L (22.0-30.0); Glucose 83 mg/dl (74-100)
[2019-07-27 07:08] LABS: Basophils # 0.1 K/mm3 (0-0.2); Basophils % 0.5 % (0.1-2.0); Eosinophils # 0.2 K/mm3 (0.0-0.4); Eosinophils % 1.6 % (0.1-12.0); Hematocrit 28.9 % (37.0-47.0); Hemoglobin 9.3 g/dL (12.2-16.2); Lymphocytes # 0.9 K/mm3 (0.7-4.5); Lymphocytes % 6.4 % (10-50); Mean Corpuscular HGB Conc 32.3 g/dL (31.8-35.4); Mean Corpuscular Hemoglobin 27.8 pg (27.0-31.2); Mean Corpuscular Volume 85.9 fl (81-99); Mean Platelet Volume 9.4 fl (7.4-10.4); Monocytes # 0.9 K/mm3 (0.1-1.0); Monocytes % 6.4 % (1.7-9.3); Neutrophils # 11.5 K/mm3 (1.8-7.8); Neutrophils % 85.2 % (37.0-80.0); Platelet Count 269 K/mm3 (142-424); Red Blood Count 3.36 M/mm3 (4.20-5.40); Red Cell Distribution Width 15.2 % (11.5-17.5); White Blood Count 13.5 K/mm3 (4.8-10.8)
[2019-07-27 07:17] LABS: MANUAL DIFFERENTIAL MANUAL DIFFERENTIAL (MANUAL DIFF)
[2019-07-27 08:23] LABS: Eosinophils % 1 % (0-3); Lymphocytes % 7 % (10-50); Monocytes % 8 % (2-9); Neutrophils % 82 % (42-76); Total Cells Counted 100
[2019-07-27 08:24] LABS: Platelet Estimate Normal; RBC Morphology Normal
--- NOTE | 2019-07-27 09:12 | HMH.ACPN2 ---
Internal Medicine - PN: Subj *Date: 07/28/19 *Time: 09:51 Interval history: doing better - still on o2 and awaiting labs Exam Vital signs and Labs for Last 24 Hours: Temp Pulse Resp BP Pulse Ox 98.2 F 89 18 115/60 91 L 07/27/19 08:00 07/27/19 08:00 07/27/19 08:00 07/27/19 08:00 07/27/19 08:00 Laboratory Results - last 24 hr 07/27/19 04:45: WBC 13.5 H, RBC 3.36 L, Hgb 9.3 L, Hct 28.9 L, MCV 85.9, MCH 27.8, MCHC 32.3, RDW 15.2, Plt Count 269, MPV 9.4, Neut % (Auto) 85.2 H, Lymph % (Auto) 6.4 L, [place] % (Auto) 6.4, Eos % (Auto) 1.6, Baso % (Auto) 0.5, Neut # (Auto) 11.5 H, Lymph # (Auto) 0.9, [place] # (Auto) 0.9, Eos # (Auto) 0.2, Baso # (Auto) 0.1, Total Counted 100, Neutrophils % (Manual) 82 H, Lymphocytes % (Manual) 7 L, Monocytes % (Manual) 8, Eosinophils % (Manual) 1, Basophils % (Manual) 2.0 H, Platelet Estimate Normal, RBC Morphology Normal 07/27/19 04:45: Sodium 139, Potassium 4.4 D, Chloride 107, Carbon Dioxide 26, Anion Gap 10.4, BUN 26 H, Creatinine 0.90, Estimated Creat Clear 70, Estimated GFR 62, Est GFR ( Amer) 74 D, Glucose 83, Calcium 8.5 I & O for Last 24 hours: Intake & Output 07/24/19 07/25/19 07/26/19 07/27/19 11:59 11:59 11:59 11:59 Intake Total 1630 / 1630 1630 / 1630 1633 / 1633 600 / 600 Output Total 250 / 250 600 / 600 201 / 201 Balance 1380 / 1380 1030 / 1030 1432 / 1432 600 / 600 Weight 192 lb 7 oz 193 lb 8 oz 193 lb 2 oz 192 lb 7.417 oz - Constitutional no acute distress, obese - *Routine HEENT Exam Head: Present: normocephalic Eye: Present: EOMI, PERRL ENT: Present: mucous membranes dry - *Routine Neck Exam Present: supple - *Routine Respiratory Exam Present: decreased breath sounds - *Routine Cardiovascular Exam Present: RRR - *Routine Abdominal Exam Present: soft - *Routine Extremities Exam Absent: calf tenderness - *Routine Skin Exam Present: intact - *Routine Neurological Exam Present: alert, oriented X3, CN II-XII intact - Routine Psychiatric Exam Present: cooperative. Absent: good insight Assessment and Plan (1) HTN (hypertension) Current visit: No Status: Acute Qualifiers: Hypertension type: essential hypertension Qualified Code(s): I10 - Essential (primary) hypertension Category: Medical Code(s): I10 - Essential (primary) hypertension (2) Obesity (BMI 30-39.9) Current visit: Yes Status: Acute Category: Medical Code(s): E66.9 - Obesity, unspecified (3) Hyperlipidemia Current visit: No Status: Acute Qualifiers: Hyperlipidemia type: unspecified Qualified Code(s): E78.5 - Hyperlipidemia, unspecified Category: Medical Code(s): E78.5 - Hyperlipidemia, unspecified (4) Contusion of hip, left Current visit: Yes Status: Acute Qualifiers: Encounter type: initial encounter Qualified Code(s): S70.02XA - Contusion of left hip, initial encounter Category: Medical Code(s): S70.02XA - Contusion of left hip, initial encounter (5) COVID-19 virus infection Current visit: Yes Status: Acute Category: Medical Code(s): U07.1 - COVID-19 (6) Renal insufficiency Current visit: No Status: Resolved Category: Medical Code(s): N28.9 - Disorder of kidney and ureter, unspecified (7) Anemia Current visit: Yes Status: Acute Qualifiers: Anemia type: unspecified type Qualified Code(s): D64.9 - Anemia, unspecified Category: Medical Code(s): D64.9 - Anemia, unspecified (8) Aspiration pneumonia Current visit: Yes Status: Acute Qualifiers: Aspiration pneumonia type: unspecified Laterality: right Lung location: unspecified part of lung Qualified Code(s): J69.0 - Pneumonitis due to inhalation of food and vomit Category: Medical Code(s): J69.0 - Pneumonitis due to inhalation of food and vomit (9) Psychosis Current visit: No Status: Acute Qualifiers: Psychosis type: unspecified psychosis type Qualified Code(s): F29 - Unspecifie
[2019-07-27 11:37] LABS: Coronavirus 19, PCR Detected (NotDetected)
--- NOTE | 2019-07-27 18:47 | PC.NURSE ---
Pt alert and oriented and able to make needs known. RR even and unlabored. 02 weaned to 2 L. CB in reach. VSS. Did c/o of nausea x 1. PRN zofran given and has been effective. Pt is resting with eyes closed at this time and is up to chair. 22 IV in RAC, and has good blood return and is SL.
[2019-07-28] VITALS: BP 118/76; PULSE 77; RESP 20; TEMP 36.4; O2SAT 93
[2019-07-28 04:00] VITALS: BP 104/58; PULSE 71; RESP 20; TEMP 36.3; O2SAT 92
--- NOTE | 2019-07-28 04:10 | PC.NURSE ---
A&OX4. PT HAS TOLERATED 3-4LNC WELL THIS SHIFT. O2 SAT HAS WENT FROM 85-93% T/O SHIFT. PT HAS HAD PRODUCTIVE COUGH WITH WHITE SPUTUM. PT HAS C/O SOA. GAVE PT PRN INHALER AND HELPED PT USE IS MULTIPLE TIMES THIS SHIFT. SHE STATES THAT THIS HELPS HER FEEL BETTER. OTHER THAN HER COUGH, PT HAS HAD NO C/O T/O SHIFT. PT HAS RESTED WELL. FULL PPE WORN BY ALL STAFF WHILE IN ROOM. VSS WILL CONTINUE TO MONITOR.
[2019-07-28 05:00] VITALS: BMI 39.5
[2019-07-28 05:38] LABS: Basophils # 0.1 K/mm3 (0-0.2); Basophils % 0.7 % (0.1-2.0); Eosinophils # 0.2 K/mm3 (0.0-0.4); Eosinophils % 2.2 % (0.1-12.0); Hemoglobin 8.6 g/dL (12.2-16.2); Lymphocytes # 1.2 K/mm3 (0.7-4.5); Lymphocytes % 11.3 % (10-50); Mean Corpuscular HGB Conc 31.7 g/dL (31.8-35.4); Mean Corpuscular Hemoglobin 27.1 pg (27.0-31.2); Mean Corpuscular Volume 85.4 fl (81-99); Mean Platelet Volume 7.6 fl (7.4-10.4); Monocytes # 0.7 K/mm3 (0.1-1.0); Monocytes % 6.1 % (1.7-9.3); Neutrophils # 8.4 K/mm3 (1.8-7.8); Neutrophils % 79.7 % (37.0-80.0); Platelet Count 261 K/mm3 (142-424); Red Blood Count 3.17 M/mm3 (4.20-5.40); Red Cell Distribution Width 15.2 % (11.5-17.5); White Blood Count 10.5 K/mm3 (4.8-10.8)
[2019-07-28 05:39] LABS: Hematocrit 27.1 % (37.0-47.0)
[2019-07-28 05:49] LABS: Anion Gap 12.3 mEq/L (5-15); Blood Urea Nitrogen 26 mg/dl (7-17); Calcium 8.8 mg/dl (8.4-10.2); Carbon Dioxide 28 mmol/L (22.0-30.0); Chloride 103 mmol/L (98-107); Creatinine Clearance Estimated 71 mL/min (50-200); Estimated Glomerular Filt Rate 62 ml/min (>60); GFR (African American) 74 ML/MIN (>60); Glucose 89 mg/dl (74-100); Potassium 4.3 mmoL/L (3.5-5.1); Sodium 139 mmol/L (136-145)
--- NOTE | 2019-07-28 06:00 | XR_ITS ---
PROCEDURE: XR CHEST PORTABLE CLINICAL HISTORY: covid/pneumonia COMPARISON: CT CHEST WO CON from 07/18/2019 XR CHEST AP from 07/25/2019 XR CHEST AP from 07/26/2019 XR CHEST PORTABLE from 07/27/2019 FINDINGS: There has been slight interval progression of the diffuse patchy ill-defined pneumonic infiltrates in the right lung when compared to the most recent study. Slight interval worsening of ill-defined infiltrate is seen in left perihilar region and left base compared to the most recent study. There is relative sparing of the left upper lobe. IMPRESSION: Slight interval progression of bilateral ill-defined pneumonic infiltrates again much more prominent right lung than left the infiltrates the right lung are primarily peripheral in location and most consistent with Covid-pneumonia Dictated by: Dr. Dario Donahue MD 07/28/2019 10:[address] Dario Donahue MD in [facility] 07/28/2019 10:01
[2019-07-28 07:51] VITALS: BP 145/81; PULSE 83; RESP 18; TEMP 36.6; O2SAT 92
--- NOTE | 2019-07-28 09:53 | HMH.ACPN2 ---
Internal Medicine - PN: Subj *Date: 07/29/19 *Time: 06:45 Interval history: pt seen and labs reviewed - doing ok Exam Vital signs and Labs for Last 24 Hours: Temp Pulse Resp BP Pulse Ox 97.9 F 83 18 145/81 H 92 L 07/28/19 07:51 07/28/19 07:51 07/28/19 07:51 07/28/19 07:51 07/28/19 07:51 Laboratory Results - last 24 hr 07/27/19 04:20: Chlamy pneumoniae PCR Not detected, Adenovirus (PCR) Not detected, B. pertussis DNA (PCR) Not detected, Coronavirus OC43 (PCR) Not detected, Coronavirus HKU1 (PCR) Not detected, Coronavirus 229E (PCR) Not detected, COVID-19 PCR Detected A, Coronavirus NL63 (PCR) Not detected, Human Metapneumovir PCR Not detected, Influenza A (H1) PCR Not detected, Influ A (H1N1/09) PCR Not detected, Influenza A (H3) PCR Not detected, Influenza Type A (PCR) Not detected, Influenza Type B (PCR) Not detected, M. pneumoniae (PCR) Not detected, Parainfluenza 1 (PCR) Not detected, Parainfluenza 2 (PCR) Not detected, Parainfluenza 3 (PCR) Not detected, Parainfluenza 4 (PCR) Not detected, RSV (PCR) Not detected, Entero/Rhino (PCR) Not detected 07/28/19 05:10: WBC 10.5, RBC 3.17 L, Hgb 8.6 L, Hct 27.1 L, MCV 85.4, MCH 27.1, MCHC 31.7 L, RDW 15.2, Plt Count 261, MPV 7.6, Neut % (Auto) 79.7, Lymph % (Auto) 11.3, [place] % (Auto) 6.1, Eos % (Auto) 2.2, Baso % (Auto) 0.7, Neut # (Auto) 8.4 H, Lymph # (Auto) 1.2, [place] # (Auto) 0.7, Eos # (Auto) 0.2, Baso # (Auto) 0.1 07/28/19 05:10: Sodium 139, Potassium 4.3, Chloride 103, Carbon Dioxide 28, Anion Gap 12.3, BUN 26 H, Creatinine 0.90, Estimated Creat Clear 71, Estimated GFR 62, Est GFR ( Amer) 74, Glucose 89, Calcium 8.8 I & O for Last 24 hours: Intake & Output 07/25/19 07/26/19 07/27/19 07/28/19 11:59 11:59 11:59 11:59 Intake Total 1630 / 1630 1633 / 1633 600 / 960 1380 / 1380 Output Total 600 / 600 201 / 201 Balance 1030 / 1030 1432 / 1432 600 / 960 1380 / 1380 Weight 193 lb 8 oz 193 lb 2 oz 192 lb 7.417 oz 196 lb 4 oz - Constitutional no acute distress, obese - *Routine HEENT Exam Head: Present: normocephalic Eye: Present: EOMI, PERRL ENT: Present: mucous membranes dry - *Routine Neck Exam Present: supple - *Routine Respiratory Exam Present: decreased breath sounds - *Routine Cardiovascular Exam Present: RRR. Absent: murmur - *Routine Abdominal Exam Present: soft - *Routine Extremities Exam Absent: calf tenderness - *Routine Skin Exam Present: intact - *Routine Neurological Exam Present: alert, CN II-XII intact - Routine Psychiatric Exam Present: normal affect Assessment and Plan (1) HTN (hypertension) Current visit: No Status: Acute Qualifiers: Hypertension type: essential hypertension Qualified Code(s): I10 - Essential (primary) hypertension Category: Medical Code(s): I10 - Essential (primary) hypertension (2) Obesity (BMI 30-39.9) Current visit: Yes Status: Acute Category: Medical Code(s): E66.9 - Obesity, unspecified (3) Hyperlipidemia Current visit: No Status: Acute Qualifiers: Hyperlipidemia type: unspecified Qualified Code(s): E78.5 - Hyperlipidemia, unspecified Category: Medical Code(s): E78.5 - Hyperlipidemia, unspecified (4) Contusion of hip, left Current visit: Yes Status: Acute Qualifiers: Encounter type: initial encounter Qualified Code(s): S70.02XA - Contusion of left hip, initial encounter Category: Medical Code(s): S70.02XA - Contusion of left hip, initial encounter (5) COVID-19 virus infection Current visit: Yes Status: Acute Category: Medical Code(s): U07.1 - COVID-19 (6) Renal insufficiency Current visit: No Status: Resolved Category: Medical Code(s): N28.9 - Disorder of kidney and ureter, unspecified (7) Anemia Current visit: Yes Status: Acute Qualifiers: Anemia type: unspecified type Qualified Code(s): D64.9 - Anemia, unspecified Category: Medical Code(s): D64.9 - Anemia, unspecified (8
[2019-07-28 11:14] VITALS: BP 107/68; PULSE 72; RESP 18; TEMP 36.3; O2SAT 96
--- NOTE | 2019-07-28 15:52 | PC.NURSE ---
Pt is currently resting in bed, was up to chair for most of day including breakfast and lunch. Briefs worn r/t incont episodes.Pt has required x 2 assist. Meds per apr. Did make Dr. Wong aware of current H&H and NNO were given at this time. VSS. Currently on 2.5 L and sats 93% on nasal cannula.
[2019-07-28 16:00] VITALS: BP 101/65; PULSE 75; RESP 18; TEMP 36.1; O2SAT 94
--- NOTE | 2019-07-28 19:17 | PC.NURSE ---
Pt had episode of coughing approx 1 hr ago, 02 increased to 4 L, NC. NAD. Did encourage IS, gave incentive spirometer, and PRN neb. CB in reach. Sats 91 % at this time on 4 L.
[2019-07-28 20:00] VITALS: BP 95/58; PULSE 92; RESP 19; TEMP 36.6; O2SAT 92
[2019-07-28 23:51] LABS: Covid-19 Nasal PCR Sendout UK DETECTED
[2019-07-29] VITALS: BP 127/65; PULSE 95; RESP 20; TEMP 36.2; O2SAT 91
[2019-07-29 04:00] VITALS: BP 116/67; PULSE 82; RESP 19; TEMP 35.8; O2SAT 93
--- NOTE | 2019-07-29 04:17 | PC.NURSE ---
Pt has rested comfortably t/o the night. Lung sounds are clear and O2 Sat currently at 93% on 2 L NC. Active bowel sounds in all 4 quadrants. IS encouraged during all hours the pt was awake. Meds given per MAR. VSS. Pt still in airborne, contact, and eye protection precautions, appropriate PPE worn by all nursing staff. Call light within reach and all safety measures in place. No complaints at this time, will continue to monitor for any changes.
[2019-07-29 05:00] VITALS: BMI 39.2
--- NOTE | 2019-07-29 06:00 | XR_ITS ---
PROCEDURE: XR CHEST PORTABLE CLINICAL HISTORY: covid/pneumonia COMPARISON: CT CHEST WO CON from 07/18/2019 XR CHEST AP from 07/26/2019 XR CHEST PORTABLE from 07/27/2019 XR CHEST PORTABLE from 07/28/2019 FINDINGS: Cardiomegaly without failure. Right upper and right lower lobe pneumonia once again noted not significantly changed. Left perihilar infiltrate noted unchanged. No acute bony abnormalities. IMPRESSION: No change bilateral pneumonia with cardiomegaly Dictated by: Black Godfrey MD 07/29/2019 06:50 Electronically signed by Black Godfrey MD in [facility] 07/29/2019 06:50
[2019-07-29 06:18] LABS: Basophils % 0.3 % (0.1-2.0); Eosinophils # 0.3 K/mm3 (0.0-0.4); Eosinophils % 2.4 % (0.1-12.0); Hematocrit 28.1 % (37.0-47.0); Hemoglobin 9.1 g/dL (12.2-16.2); Lymphocytes # 1.2 K/mm3 (0.7-4.5); Lymphocytes % 11.3 % (10-50); Mean Corpuscular HGB Conc 32.3 g/dL (31.8-35.4); Mean Corpuscular Hemoglobin 27.3 pg (27.0-31.2); Mean Corpuscular Volume 84.5 fl (81-99); Mean Platelet Volume 7.6 fl (7.4-10.4); Monocytes # 0.6 K/mm3 (0.1-1.0); Monocytes % 5.4 % (1.7-9.3); Neutrophils # 8.8 K/mm3 (1.8-7.8); Neutrophils % 80.6 % (37.0-80.0); Platelet Count 308 K/mm3 (142-424); Red Blood Count 3.33 M/mm3 (4.20-5.40); Red Cell Distribution Width 15.1 % (11.5-17.5); White Blood Count 10.9 K/mm3 (4.8-10.8)
[2019-07-29 06:22] LABS: Chloride 105 mmol/L (98-107)
[2019-07-29 06:23] LABS: Potassium 4.8 mmoL/L (3.5-5.1); Sodium 139 mmol/L (136-145)
[2019-07-29 06:25] LABS: Blood Urea Nitrogen 18 mg/dl (7-17); Creatinine Clearance Estimated 71 mL/min (50-200); Estimated Glomerular Filt Rate 62 ml/min (>60); GFR (African American) 74 ML/MIN (>60)
[2019-07-29 06:26] LABS: Anion Gap 8.8 mEq/L (5-15); Calcium 8.7 mg/dl (8.4-10.2); Carbon Dioxide 30 mmol/L (22.0-30.0); Glucose 84 mg/dl (74-100)
[2019-07-29 08:00] VITALS: BP 103/69; PULSE 91; RESP 18; TEMP 36.4; O2SAT 95
--- NOTE | 2019-07-29 09:46 | SW/DCPLANNER ---
Addendum entered by Kori Nahunta 07/29/19 15:14: This patient will discharge to [facility] today via [facility]. Addendum entered by Kori Nahunta 07/29/19 15:04: This patient has been accepted to [facility] under the care of Dr Marsha Higgins. The number to call report to once ready for discharge is [phone]. I have spoke with Belén with [facility] and she will call me back regarding transportation. Patient may not be able to transport till tomorrow. I will continue to follow up with José Bowden and . Addendum entered by Kori Nahunta 07/29/19 14:34: Gisela is currently reviewing this patient information regarding admission to [facility]. Original Note: Updated patient information has been faxed to Sonia at [facility].
--- NOTE | 2019-07-29 11:24 | HMH.ACPN ---
Internal Medicine - PN: Subj *Date: 07/29/19 *Time: 11:24 Exam Vital signs and Labs for Last 24 Hours: Temp Pulse Resp BP Pulse Ox 97.6 F 91 H 18 103/69 L 95 07/29/19 08:00 07/29/19 08:00 07/29/19 08:00 07/29/19 08:00 07/29/19 08:00 Laboratory Results - last 24 hr 07/28/19 05:05: SARS-CoV-2 (PCR) Detected 07/29/19 05:59: WBC 10.9 H, RBC 3.33 L, Hgb 9.1 L, Hct 28.1 L, MCV 84.5, MCH 27.3, MCHC 32.3, RDW 15.1, Plt Count 308, MPV 7.6, Neut % (Auto) 80.6 H, Lymph % (Auto) 11.3, [place] % (Auto) 5.4, Eos % (Auto) 2.4, Baso % (Auto) 0.3, Neut # (Auto) 8.8 H, Lymph # (Auto) 1.2, [place] # (Auto) 0.6, Eos # (Auto) 0.3, Baso # (Auto) 0.0 07/29/19 05:59: Sodium 139, Potassium 4.8, Chloride 105, Carbon Dioxide 30, Anion Gap 8.8, BUN 18 H D, Creatinine 0.90, Estimated Creat Clear 71, Estimated GFR 62, Est GFR ( Amer) 74, Glucose 84, Calcium 8.7 I & O for Last 24 hours: Intake & Output 07/26/19 07/27/19 07/28/19 07/29/19 23:59 23:59 23:59 23:59 Intake Total 903 / 903 1380 / 1380 920 / 920 120 / 120 Output Total Balance 902 / 902 1380 / 1380 920 / 920 120 / 120 Weight 87.6 kg 87.3 kg 89.018 kg 88.139 kg Assessment and Plan (1) HTN (hypertension) Current visit: No Status: Acute Qualifiers: Hypertension type: essential hypertension Qualified Code(s): I10 - Essential (primary) hypertension Category: Medical Code(s): I10 - Essential (primary) hypertension (2) Obesity (BMI 30-39.9) Current visit: Yes Status: Acute Category: Medical Code(s): E66.9 - Obesity, unspecified (3) Hyperlipidemia Current visit: No Status: Acute Qualifiers: Hyperlipidemia type: unspecified Qualified Code(s): E78.5 - Hyperlipidemia, unspecified Category: Medical Code(s): E78.5 - Hyperlipidemia, unspecified (4) Contusion of hip, left Current visit: Yes Status: Acute Qualifiers: Encounter type: initial encounter Qualified Code(s): S70.02XA - Contusion of left hip, initial encounter Category: Medical Code(s): S70.02XA - Contusion of left hip, initial encounter (5) COVID-19 virus infection Current visit: Yes Status: Acute Category: Medical Code(s): U07.1 - COVID-19 (6) Renal insufficiency Current visit: No Status: Resolved Category: Medical Code(s): N28.9 - Disorder of kidney and ureter, unspecified (7) Anemia Current visit: Yes Status: Acute Qualifiers: Anemia type: unspecified type Qualified Code(s): D64.9 - Anemia, unspecified Category: Medical Code(s): D64.9 - Anemia, unspecified (8) Aspiration pneumonia Current visit: Yes Status: Acute Qualifiers: Aspiration pneumonia type: unspecified Laterality: right Lung location: unspecified part of lung Qualified Code(s): J69.0 - Pneumonitis due to inhalation of food and vomit Category: Medical Code(s): J69.0 - Pneumonitis due to inhalation of food and vomit (9) Psychosis Current visit: No Status: Acute Qualifiers: Psychosis type: unspecified psychosis type Qualified Code(s): 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stance or known physiological condition Category: Medical Code(s): 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stance or known physiological condition The patient's infection will respond to the chosen ABx?: Yes Is the patient receiving the right drug, dose, and route?: Yes Could a more targeted ABx be ordered?: No (AFEBRILE, WBC DECREASED, COVID19, NORMAL DAVID IN CULTURE)
[2019-07-29 11:26] VITALS: BP 125/74; PULSE 76; RESP 16; TEMP 36.6; O2SAT 92
--- NOTE | 2019-07-29 12:36 | HMH.ACPN2 ---
Internal Medicine - PN: Subj *Date: 07/29/19 *Time: 15:10 Interval history: oob in chair looks good still on o2 Exam Vital signs and Labs for Last 24 Hours: Temp Pulse Resp BP Pulse Ox 97.8 F 76 16 125/74 92 L 07/29/19 11:26 07/29/19 11:26 07/29/19 11:26 07/29/19 11:26 07/29/19 11:26 Laboratory Results - last 24 hr 07/28/19 05:05: SARS-CoV-2 (PCR) Detected 07/29/19 05:59: WBC 10.9 H, RBC 3.33 L, Hgb 9.1 L, Hct 28.1 L, MCV 84.5, MCH 27.3, MCHC 32.3, RDW 15.1, Plt Count 308, MPV 7.6, Neut % (Auto) 80.6 H, Lymph % (Auto) 11.3, [place] % (Auto) 5.4, Eos % (Auto) 2.4, Baso % (Auto) 0.3, Neut # (Auto) 8.8 H, Lymph # (Auto) 1.2, [place] # (Auto) 0.6, Eos # (Auto) 0.3, Baso # (Auto) 0.0 07/29/19 05:59: Sodium 139, Potassium 4.8, Chloride 105, Carbon Dioxide 30, Anion Gap 8.8, BUN 18 H D, Creatinine 0.90, Estimated Creat Clear 71, Estimated GFR 62, Est GFR ( Amer) 74, Glucose 84, Calcium 8.7 I & O for Last 24 hours: Intake & Output 07/27/19 07/28/19 07/29/19 07/30/19 11:59 11:59 11:59 11:59 Intake Total 600 / 960 1380 / 1380 800 / 800 Balance 600 / 960 1380 / 1380 800 / 800 Weight 192 lb 7.417 oz 196 lb 4 oz 194 lb 5 oz - Constitutional no acute distress, obese - *Routine HEENT Exam Head: Present: normocephalic Eye: Present: EOMI, PERRL ENT: Present: mucous membranes dry - *Routine Neck Exam Present: supple. Absent: JVD - *Routine Respiratory Exam Present: decreased breath sounds - *Routine Cardiovascular Exam Present: RRR, murmur - *Routine Abdominal Exam Present: soft - *Routine Extremities Exam Absent: calf tenderness - *Routine Skin Exam Present: intact - *Routine Neurological Exam Present: alert, CN II-XII intact - Routine Psychiatric Exam Present: cooperative Assessment and Plan (1) HTN (hypertension) Current visit: No Status: Acute Qualifiers: Hypertension type: essential hypertension Qualified Code(s): I10 - Essential (primary) hypertension Category: Medical Code(s): I10 - Essential (primary) hypertension (2) Obesity (BMI 30-39.9) Current visit: Yes Status: Acute Category: Medical Code(s): E66.9 - Obesity, unspecified (3) Hyperlipidemia Current visit: No Status: Acute Qualifiers: Hyperlipidemia type: unspecified Qualified Code(s): E78.5 - Hyperlipidemia, unspecified Category: Medical Code(s): E78.5 - Hyperlipidemia, unspecified (4) Contusion of hip, left Current visit: Yes Status: Acute Qualifiers: Encounter type: initial encounter Qualified Code(s): S70.02XA - Contusion of left hip, initial encounter Category: Medical Code(s): S70.02XA - Contusion of left hip, initial encounter (5) COVID-19 virus infection Current visit: Yes Status: Acute Category: Medical Code(s): U07.1 - COVID-19 (6) Renal insufficiency Current visit: No Status: Resolved Category: Medical Code(s): N28.9 - Disorder of kidney and ureter, unspecified (7) Anemia Current visit: Yes Status: Acute Qualifiers: Anemia type: unspecified type Qualified Code(s): D64.9 - Anemia, unspecified Category: Medical Code(s): D64.9 - Anemia, unspecified (8) Aspiration pneumonia Current visit: Yes Status: Acute Qualifiers: Aspiration pneumonia type: unspecified Laterality: right Lung location: unspecified part of lung Qualified Code(s): J69.0 - Pneumonitis due to inhalation of food and vomit Category: Medical Code(s): J69.0 - Pneumonitis due to inhalation of food and vomit (9) Psychosis Current visit: No Status: Acute Qualifiers: Psychosis type: unspecified psychosis type Qualified Code(s): 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stance or known physiological condition Category: Medical Code(s): 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stance or known physiological condition
--- NOTE | 2019-07-29 15:12 | HMH.DCSUM ---
General - General Admission date:: 07/16/19 Discharge date: 07/29/19 HPI HPI: this pt is from local custodial - the [facility]-pt had fallen during transfer as she usually is wheelchair bound- no cough and no sob at this time - she c/o of weakness -pt was examined and no acute fx noted but dec ambulation and was found to be covid-19 positive -pt unable to return to custodial sec to multiple falls and dec ambulation Hospital Course Hospital Course: this pt was from custodial but has increasing episodes of falls and was transfer only and used wheelchair- she was found to be covid-19 positive and was admitted - she dev rapidly covid-19 assoc pneumonia - she was treated with bronchiodilators and abx including anti-viral meds and ivf and oxygen- she has slowly improved with ability to transfer and tolerate diet but still required oxygen supplement -her cxr reports have stabilized - her cbc and bmp are stable and she has dev igg abx to covid but still has positive nasal testing- she is doing better but still nedds recovery and weaning off o2 - Objective Vital signs: Temp Pulse Resp BP Pulse Ox 97.8 F 76 16 125/74 92 L 07/29/19 11:26 07/29/19 11:26 07/29/19 11:26 07/29/19 11:26 07/29/19 11:26 no acute distress, obese - *Routine HEENT Exam Head: Present: normocephalic Eye: Present: EOMI, PERRL. Absent: conjunctival icterus ENT: Present: mucous membranes moist - *Routine Neck Exam Present: supple. Absent: JVD - *Routine Respiratory Exam Present: decreased breath sounds - *Routine Cardiovascular Exam Present: RRR, murmur. Absent: rubs - *Routine Abdominal Exam Present: soft - *Routine Extremities Exam Absent: calf tenderness - *Routine Skin Exam Present: intact - *Routine Neurological Exam Present: alert, oriented X3, CN II-XII intact - Routine Psychiatric Exam Present: normal affect Results Labs on day of discharge: Labs from last 24 hours 07/29/19 07/29/19 07/28/19 05:59 05:59 05:05 WBC 10.9 H RBC 3.33 L Hgb 9.1 L Hct 28.1 L MCV 84.5 MCH 27.3 MCHC 32.3 RDW 15.1 Plt Count 308 MPV 7.6 Neut % (Auto) 80.6 H Lymph % (Auto) 11.3 [place] % (Auto) 5.4 Eos % (Auto) 2.4 Baso % (Auto) 0.3 Neut # (Auto) 8.8 H Lymph # (Auto) 1.2 [place] # (Auto) 0.6 Eos # (Auto) 0.3 Baso # (Auto) 0.0 Sodium 139 Potassium 4.8 Chloride 105 Carbon Dioxide 30 Anion Gap 8.8 BUN 18 H D Creatinine 0.90 Estimated Creat Clear 71 Estimated GFR 62 Est GFR ( Amer) 74 Glucose 84 Calcium 8.7 SARS-CoV-2 (PCR) Detected DS: Diagnosis - Discharge Diagnosis (1) HTN (hypertension) Status: Acute (2) Obesity (BMI 30-39.9) Status: Acute (3) Hyperlipidemia Status: Acute (4) Contusion of hip, left Status: Acute (5) COVID-19 virus infection Status: Acute (6) Renal insufficiency Status: Resolved (7) Anemia Status: Acute (8) Aspiration pneumonia Status: Acute (9) Psychosis Status: Acute (10) Dyspnea due to COVID-19 Status: Acute (11) Pneumonia due to COVID-19 virus Status: Acute Discharge Plan - Patient Discharge Instructions ACTIVITY: Continue current activity DIET: continue same diet Patient Instructions: Aspiration Pneumonia, How to Prevent Falls, Psychosis, Preventing the Spread of Coronavirus Discharge Instructions - Follow up Plan Disposition: er [facility] Home Medications: Home Medications Medication Instructions Recorded Confirmed Type Acetaminophen [Tylenol 325mg 650 mg PO Q6HP PRN 05/20/17 07/16/19 History Tablet] Atorvastatin Calcium [Atorvastatin 40 mg PO HS 05/20/17 07/16/19 History 40mg Tab] Bismuth Subsalicylate 30 ml PO Q4HP PRN 05/20/17 07/16/19 History [Pepto-Bismol] Cholecalciferol (Vitamin D3) 2,000 units PO DAILY 05/20/17 07/16/19 History [Vitamin D3 1,000 Unit Tab] Fenofibrate [Tricor
--- NOTE | 2019-07-29 15:21 | PC.NURSE ---
ATTEMPTED CALL TO [facility] AT THIS TIME. NURSE NOT AVAILABLE FOR REPORT. LEFT CALL BACK NUMBER.
[2019-07-30 15:09] LABS: Covid-19 Nasal PCR Sendout Lex NOT DETECTED
== END 2019-07-29 16:00 | disposition home or self-care (01) | DRG 177 ==
LOC: ER 01:49 → ICU 10:11
PROVIDERS: Internal Medicine Adolescent Medicine; Nurse Practitioner Family; Admitting Provider Emergency Medicine; Emergency Provider Emergency Medicine; Visit Provider Emergency Medicine
DX: U07.1 COVID-19 (principal); J69.0 Pneumonitis due to inhalation of food and vomit; J12.89 Other viral pneumonia; I10 Essential (primary) hypertension; S70.02XA Contusion of left hip, initial encounter; Z91.81 History of falling; F29 Unspecified psychosis not due to a substance or known physiological condition; D64.9 Anemia, unspecified; Z85.528 Personal history of other malignant neoplasm of kidney; Z90.5 Acquired absence of kidney; Z79.899 Other long term (current) drug therapy
CPT/HCPCS: 36415; 71045; 71250; 73502; 80048; 80053; 80076; 81001; 83735; 83880; 84436; 84443; 85007; 85025; 86328; 87070; 87205; 87507; 87581; 87633; 87798; 92507; 92610; 94761; 97110; 97163; 97166; 97530; 99282; 99284; J1956; J2405; U0003; U0004